=== PATIENT | male | born 1970 | race Caucasian/White ===

== ENCOUNTER 2016-05-03 21:43 | Inpatient (IN) | payer OTHER ==
[2016-05-03] MEDS ORDERED: Sodium Chloride 0.9% 10 ML Syringe FLUSH PRN (22:50)
[2016-05-03] MEDS ORDERED: Prochlorperazine 10 MG/2 ML SDV IVPUSH ONE (22:52)
[2016-05-03] MEDS ORDERED: Sodium Chloride 0.9% 1,000 ML IV SCH (23:00)
--- NOTE | 2016-05-03 23:01 | EDM.PDOC ---
ED HPI GI/ABDOMINAL - General Chief Complaint: Gastrointestinal Problem Stated Complaint: [facility] Time Seen by Provider: 05/03/16 22:44 Source: Reports: Patient History Limitations: Reports: No limitations - History of Present Illness INITIAL COMMENTS - FREE TEXT/NARRATIVE: This patient says he's been sick for the past couple of days. He's been vomiting a lot. He said he can't hold anything down at all. He had a little bit of diarrhea at first but now it's mostly gone. He denies any fever there's no sore throat no cough no abdominal pain. He said his blood sugars have been running high recently. He denies any history of DKA. Have type 1 diabetes - Related Data Allergies/ADRs: Allergies Allergy/AdvReac Type Severity Reaction Status Date / Time indomethacin Allergy Confusion Verified 05/03/16 21:50 metformin Allergy Other Verified 05/03/16 21:50 Home Meds: Home Meds Acetaminophen [Tylenol Extra Strength] 1,000 mg PO Q6HR 08/18/15 [History] Aspirin [Lo-Dose Aspirin EC] 81 mg PO DAILY 08/18/15 [History] Multivitamin [Men's Multi-Vitamin] 1 mg PO DAILY 08/18/15 [History] Insulin Aspart [NovoLOG] 1 unit SUBCUT WITHMEALSANDBED 10/05/15 [History] Insulin Detemir [Levemir] 30 unit SUBCUT BEDTIME 10/05/15 [History] Famotidine 40 mg PO DAILY #30 tablet 03/21/16 [Rx] Gabapentin [Neurontin] 300 mg PO TID 03/21/16 [History] Simvastatin [Zocor] 1 tab PO BEDTIME 05/03/16 [History] Past Medical History HEENT History: Reports: Impaired vision Cardiovascular History: Reports: High cholesterol, Hypertension Musculoskeletal History: Reports: RA Other Musculoskeletal History: . Neurological History: Reports: Neuropathy, peripheral Endocrine/Metabolic History: Reports: Diabetes, type I - Infectious Disease History Infectious Disease History: Reports: Chicken pox - Past Surgical History Cardiovascular Surgical History: Reports: None Musculoskeletal Surgical History: Reports: Shoulder surgery, Other (see below) Other Musculoskeletal Surgeries/Procedures:: toe amputaion x2 right foot Social & Family History - Family History Family Medical History: Noncontributory Cardiac: Reports: Cardiomyopathy Other Cardiac Family History: Father Endocrine/Metabolic: Reports: Diabetes, type II Other Endocrine/Metabolic Family History: Grandma - Tobacco Use Smoking Status *Q: Former Smoker Years of Tobacco use: 3 Used Tobacco, but Quit: Yes Month Tobacco Last Used: 36 Second Hand Smoke Exposure: No - Caffeine Use Caffeine Use: Reports: Coffee - Recreational Drug Use Recreational Drug Use: No - Living Situation & Occupation Living situation: Reports: , alone Occupation: employed ED ROS GENERAL - Review of Systems Review Of Systems: See Below Constitutional: Reports: malaise, weakness HEENT: Reports: No symptoms Respiratory: Reports: no symptoms Cardiovascular: Reports: No symptoms Endocrine: Reports: no symptoms GI/Abdominal: Reports: Nausea, Vomiting : Reports: no symptoms Musculoskeletal: Reports: no symptoms, muscle pain Neurological: Reports: no symptoms Psychiatric: Reports: No symptoms Hematologic/Lymphatic: Reports: no symptoms Immunologic: Reports: no symptoms ED EXAM, GI/ABD - Physical Exam Exam: See Below Exam Limited By: No limitations General Appearance: alert, WD/WN, mild distress Eyes: bilateral: normal appearance Ears: normal external exam Nose: normal inspection Throat/Mouth: Normal inspection (Most teeth are missing) Head: atraumatic Neck: normal inspection Respiratory/Chest: lungs clear Cardiovascular: normal peripheral pulses, regular rate, rhythm, no murmur GI/Abdominal: normal bowel sounds, soft, non tender Back Exam: normal inspection Extremities: normal inspection Neurological: alert, oriented, CN II-XII intact Psychiatric: normal affect Skin Exam: Warm, Dry Course - Vital Signs Last Recorded V/S: Last Vital Signs Temp 37.3 C 05/03/16 21:55 Pulse 108 H 05/04/16 00:35 Resp 14 05/04/16 00:35 BP 143/97 H 05/04/16 00:35 Pulse Ox 97 05/04/16 00:35 - Orders/Labs/Meds Orders: Active Orders 24 hr Category Date Time Status Chest 2V [CR] Urgent Exams 05/03/16 22:50 Taken Sodium Chloride 0.9% [Normal Saline] 1,000 ml Med 05/03/16 23:00 Active IV ASDIRECTED Sodium Chloride 0.9% [Normal Saline] 1,000 ml Med 05/04/16 01:00 Active IV ASDIRECTED Sodium Chloride 0.9% [Saline Flush] Med 05/03/16 22:50 Active 10 ml FLUSH ASDIRECTED PRN Saline Lock Insert [OM.PC] Urgent Oth 05/03/16 22:50 Ordered Medication Orders Sodium Chloride (Normal Saline) 1,000 mls @ 999 mls/hr IV ASDIRECTED GT Last Admin: 05/03/16 23:11 Dose: 999 mls/hr Sodium Chloride (Normal Saline) 1,000 mls @ 999 mls/hr IV ASDIRECTED GT Last Admin: 05/04/16 00:51 Dose: 999 mls/hr Sodium Chloride (Saline Flush) 10 ml FLUSH ASDIRECTED PRN PRN Reason: Keep Vein Open Last Admin: 05/03/16 23:10 Dose: 10 ml Labs: Laboratory Tests 05/03/16 05/03/16 05/03/16 Range/Units 22:51 23:07 23:09 WBC (4.5-11.0) K/uL RBC (4.30-5.90) M/uL Hgb (12.0-15.0) g/dL Hct (40.0-54.0) % MCV (80-98) fL MCH (27-31) pg MCHC (32-36) % Plt Count (150-400) K/uL Neut % (Auto) (36-66) % Lymph % (Auto) (24-44) % Brooke % (Auto) (2-6) % Eos % (Auto) (2-4) % Baso % (Auto) (0-1) % ABG Hemoglobin 16.3 (13.5-18.0) g/dL ABG Oxyhemoglobin 71.4 % ABG Carboxyhemoglobin 1.4 (0.0-1.6) % ABG Methemoglobin 0.7 % VBG pH 7.552 H (7.350-7.450) VBG pCO2 27.0 mm/Hg VBG pO2 35.6 mm/Hg VBG HCO3 23.7 mmol/L VBG Total CO2 19.7 mmol/L VBG O2 Saturation 72.9 VBG O2 Content 16.3 %vol VBG Base Excess 3.0 mm/L O2 Delivery Device Room air Sodium (140-148) mmol/L Potassium (3.6-5.2) mmol/L Chloride (100-108) mmol/L Carbon Dioxide (21-32) mmol/L Anion Gap (5.0-14.0) mmol/L BUN (7-18) mg/dL Creatinine (0.8-1.3) mg/dL Est Cr Clr Drug Dosing mL/min Estimated GFR (MDRD) (>60) Glucose (74-106) mg/dL Lactic Acid 2.5 H (0.4-2.0) mmol/L Calcium (8.5-10.1) mg/dL Total Bilirubin (0.2-1.0) mg/dL AST (15-37) U/L ALT (12-78) U/L Alkaline Phosphatase (46-116) U/L Total Protein (6.4-8.2) g/dL Albumin (3.4-5.0) g/dL Globulin (2.3-3.5) g/dL Albumin/Globulin Ratio (1.2-2.2) Urine Color Yellow Urine Appearance Cloudy Urine pH 6.0 (4.5-8.0) Ur Specific [place] 1.020 (1.008-1.030) Urine Protein 100 H (NEGATIVE) mg/dL Urine Glucose (UA) >1000 H (NEGATIVE) mg/dL Urine Ketones 50 H (NEGATIVE) mg/dL Urine Occult Blood Moderate (NEGATIVE) Urine Nitrite Negative (NEGAITVE) Urine Bilirubin Negative (NEGATIVE) Urine Urobilinogen Normal (NORMAL) mg/dL Ur Leukocyte Esterase Negative (NEGATIVE) Urine RBC 5-10 H (0-5) Urine WBC 0-5 (0-5) Ur Epithelial Cells Rare Amorphous Sediment Not seen Urine Bacteria Not seen Urine Mucus Few Ketones (NEGATIVE) 05/03/16 05/03/16 05/03/16 Range/Units 23:09 23:09 23:09 WBC 17.5 H (4.5-11.0) K/uL RBC 5.51 (4.30-5.90) M/uL Hgb 16.0 H (12.0-15.0) g/dL Hct 46.0 (40.0-54.0) % MCV 84 (80-98) fL MCH 29 (27-31) pg MCHC 35 (32-36) % Plt Count 427 H (150-400) K/uL Neut % (Auto) 84 H (36-66) % Lymph % (Auto) 8 L (24-44) % Brooke % (Auto) 8 H (2-6) % Eos % (Auto) 0 L (2-4) % Baso % (Auto) 0 (0-1) % ABG Hemoglobin (13.5-18.0) g/dL ABG Oxyhemoglobin % ABG Carboxyhemoglobin (0.0-1.6) % ABG Methemoglobin % VBG pH (7.350-7.450) VBG pCO2 mm/Hg VBG pO2 mm/Hg VBG HCO3 mmol/L VBG Total CO2 mmol/L VBG O2 Saturation VBG O2 Content %vol VBG Base Excess mm/L O2 Delivery Device Sodium 139 L (140-148) mmol/L Potassium 3.6 (3.6-5.2) mmol/L Chloride 99 L (100-108) mmol/L Carbon Dioxide 24 (21-32) mmol/L Anion Gap 19.6 H (5.0-14.0) mmol/L BUN 41 H D (7-18) mg/dL Creatinine 1.3 (0.8-1.3) mg/dL Est Cr Clr Drug Dosing 71.39 mL/min Estimated GFR (MDRD) 59 L (>60) Glucose 297 H (74-106) mg/dL Lactic Acid (0.4-2.0) mmol/L Calcium 9.5 (8.5-10.1) mg/dL Total Bilirubin 0.7 (0.2-1.0) mg/dL AST 21 (15-37) U/L ALT 22 (12-78) U/L Alkaline Phosphatase 57 (46-116) U/L Total Protein 9.1 H (6.4-8.2) g/dL Albumin 4.4 (3.4-5.0) g/dL Globulin 4.7 H (2.3-3.5) g/dL Albumin/Globulin Ratio 0.9 L (1.2-2.2) Urine Color Urine Appearance Urine pH (4.5-8.0) Ur Specific [place] (1.008-1.030) Urine Protein (NEGATIVE) mg/dL Urine Glucose (UA) (NEGATIVE) mg/dL Urine Ketones (NEGATIVE) mg/dL Urine Occult Blood (NEGATIVE) Urine Nitrite (NEGAITVE) Urine Bilirubin (NEGATIVE) Urine Urobilinogen (NORMAL) mg/dL Ur Leukocyte Esterase (NEGATIVE) Urine RBC (0-5) Urine WBC (0-5) Ur Epithelial Cells Amorphous Sediment Urine Bacteria Urine Mucus Ketones Small H (NEGATIVE) Meds: Medications Generic Name Dose Route Start Last Admin Trade Name Freq PRN Reason Stop Dose Admin Sodium Chloride 1,000 mls @ 999 mls/hr 05/03/16 23:00 05/03/16 23:11 Normal Saline IV 999 mls/hr ASDIRECTED GT Administration Sodium Chloride 1,000 mls @ 999 mls/hr 05/04/16 01:00 05/04/16 00:51 Normal Saline IV 999 mls/hr ASDIRECTED GT Administration Sodium Chloride 10 ml 05/03/16 22:50 05/03/16 23:10 Saline Flush FLUSH 10 ml ASDIRECTED PRN Administration Keep Vein Open Discontinued Medications Generic Name Dose Route Start Last Admin Trade Name Freq PRN Reason Stop Dose Admin Prochlorperazine Edisylate 5 mg 05/03/16 22:52 05/03/16 23:09 Compazine IVPUSH 05/03/16 22:53 5 mg ONETIME ONE Administration - Re-Assessments/Exams Free Text/Narrative Re-Assessment/Exam: 05/04/16 01:05 This patient received Compazine 5 mg IV and 1 L of IV normal saline. He felt just a little bit better afterwards however labs indicate that he is dehydrated and has prerenal azotemia. His white count is elevated with a left shift and lactic acid slightly elevated at 2.5. Patient says he was noticed a little bit better he still feels awful and feels like he needs to be hospitalized. He denies any kind of abdominal pain. At the present time the cause of the vomiting is unclear. He will need further hydration and workup. I spoke with Melissa Begum from the hospitalist service and the patient will be admitted Departure - Departure Time of Disposition: 01:13 Disposition: Admitted As Inpatient 65 Condition: fair Clinical Impression: Gastroenteritis Forms: ED Department Discharge - My Orders Last 24 Hours: My Active Orders 05/03/16 22:50 Chest 2V [CR] Urgent Sodium Chloride 0.9% [Saline Flush] 10 ml FLUSH ASDIRECTED PRN Saline Lock Insert [OM.PC] Urgent 05/03/16 23:00 Sodium Chloride 0.9% [Normal Saline] 1,000 ml IV ASDIRECTED 05/04/16 01:00 Sodium Chloride 0.9% [Normal Saline] 1,000 ml IV ASDIRECTED - Assessment/Plan Last 24 Hours: My Active Orders 05/03/16 22:50 Chest 2V [CR] Urgent Sodium Chloride 0.9% [Saline Flush] 10 ml FLUSH ASDIRECTED PRN Saline Lock Insert [OM.PC] Urgent 05/03/16 23:00 Sodium Chloride 0.9% [Normal Saline] 1,000 ml IV ASDIRECTED 05/04/16 01:00 Sodium Chloride 0.9% [Normal Saline] 1,000 ml IV ASDIRECTED
[2016-05-04] MEDS ORDERED: Sodium Chloride 0.9% 1,000 ML IV SCH (01:00)
[2016-05-04] MEDS ORDERED: LORazepam 2 MG/ML MDV IVPUSH ONE (01:11)
[2016-05-04] MEDS ORDERED: oxyCODONE 5 MG Tab PO PRN (01:57)
[2016-05-04] MEDS ORDERED: Acetaminophen 325 MG Tab PO PRN (01:57)
[2016-05-04] MEDS ORDERED: Docusate Sodium 100 MG Cap PO PRN (01:57)
[2016-05-04] MEDS ORDERED: Promethazine 25 MG Tab PO PRN (01:57)
[2016-05-04] MEDS ORDERED: Zolpidem 5 MG Tab PO PRN (01:57)
[2016-05-04] MEDS ORDERED: LORazepam 2 MG/ML MDV IV PRN (01:57)
[2016-05-04] MEDS ORDERED: Albuterol 0.083% 2.5 MG/3 ML Neb Soln NEB PRN (01:57)
[2016-05-04] MEDS: Sodium Chloride 0.9% 1,000 ML IV SCH ×3 (02:00→17:53)
[2016-05-04] MEDS: Insulin Aspart 100 Units/ML 3 ML Pen SUBCUT SCH ×8 (07:57→22:06)
[2016-05-04] MEDS ORDERED: Insulin Aspart 100 Units/ML 3 ML Pen SUBCUT SCH (08:00)
--- NOTE | 2016-05-04 08:37 | PCM.HP ---
H&P History of Present Illness - General Date of Service: 05/03/16 Admit Problem/Dx: Admission Diagnosis/Problem Admission Diagnosis/Problem Gastroenteritis Source of Information: Patient History Limitations: Reports: No limitations - History of Present Illness Initial Comments - Free Text/Narative: This patient says he's been sick for the past couple of days. He's been vomiting a lot. He said he can't hold anything down at all. He had a little bit of diarrhea at first but now it's mostly gone. He denies any fever there's no sore throat no cough no abdominal pain. He said his blood sugars have been running high recently. He denies any history of DKA. Have type 1 diabetes. Mr. Dumont reports when he got sick 2 days ago, stopped all his medications including his insulin. Onset of Symptoms: Reports: sudden Duration of Symptoms: Reports: Day(s): (three) Location: Reports: generalized Severity: moderate Improves with: Reports: None Worsens with: Reports: None Context: Reports: sick contact (flu like illness for the past 3 days) Associated Symptoms: Reports: fever/chills, loss of appetite (unable to eat food or water for 2 days.), malaise, nausea/vomiting, weakness Abdominal Pain Score (Numeric/FACES): 5 - Related Data Allergies/Adverse Reactions: Allergies Allergy/AdvReac Type Severity Reaction Status Date / Time indomethacin Allergy Confusion Verified 05/03/16 21:50 metformin Allergy Other Verified 05/03/16 21:50 Home Medications: Home Meds Acetaminophen [Tylenol Extra Strength] 1,000 mg PO Q6HR 08/18/15 [History] Aspirin [Lo-Dose Aspirin EC] 81 mg PO DAILY 08/18/15 [History] Multivitamin [Men's Multi-Vitamin] 1 mg PO DAILY 08/18/15 [History] Insulin Aspart [NovoLOG] 1 unit SUBCUT WITHMEALSANDBED 10/05/15 [History] Insulin Detemir [Levemir] 30 unit SUBCUT BEDTIME 10/05/15 [History] Famotidine 40 mg PO DAILY #30 tablet 03/21/16 [Rx] Gabapentin [Neurontin] 300 mg PO TID 03/21/16 [History] Simvastatin [Zocor] 1 tab PO BEDTIME 05/03/16 [History] Past Medical History HEENT History: Reports: Impaired vision Cardiovascular History: Reports: High cholesterol, Hypertension Musculoskeletal History: Reports: RA Other Musculoskeletal History: . Neurological History: Reports: Neuropathy, peripheral Endocrine/Metabolic History: Reports: Diabetes, type I - Infectious Disease History Infectious Disease History: Reports: Chicken pox - Past Surgical History Cardiovascular Surgical History: Reports: None Musculoskeletal Surgical History: Reports: Shoulder surgery, Other (see below) Other Musculoskeletal Surgeries/Procedures:: toe amputaion x2 right foot Social & Family History - Family History Family Medical History: Noncontributory Cardiac: Reports: Cardiomyopathy Other Cardiac Family History: Father Endocrine/Metabolic: Reports: Diabetes, type II Other Endocrine/Metabolic Family History: Grandma - Tobacco Use Smoking Status *Q: Former Smoker Years of Tobacco use: 3 Packs/Tins Daily: 2 Used Tobacco, but Quit: Yes Month Tobacco Last Used: 36 Second Hand Smoke Exposure: No - Caffeine Use Caffeine Use: Reports: Coffee Other Caffeine Use: 2 cups daily - Recreational Drug Use Recreational Drug Use: No - Living Situation & Occupation Living situation: Reports: , alone Occupation: employed H&P Review of Systems - Review of Systems: Review Of Systems: See Below General: Reports: fever, chills, malaise, weakness, decreased appetite (unalbe to eat or drink for 2 days.) HEENT: Reports: no symptoms Pulmonary: Reports: no symptoms Cardiovascular: Reports: no symptoms Gastrointestinal: Reports: Decreased appetite, Nausea, Vomiting Genitourinary: Reports: no symptoms Musculoskeletal: Reports: muscle pain (pain and weakness.) Skin: Reports: no symptoms Psychiatric: Reports: no symptoms Neurological: Reports: no symptoms Hematologic/Lymphatic: Reports: no symptoms Immunologic: Reports: no symptoms Exam - Exam Exam: See Below - Vital Signs Vital Signs: Last Vital Signs Temp 37.2 C 05/04/16 02:00 Pulse 103 H 05/04/16 02:00 Resp 18 05/04/16 06:00 BP 115/75 05/04/16 02:00 Pulse Ox 96 05/04/16 02:23 Weight: 79.016 kg - Exam General: alert, oriented, cooperative, mild distress, other (laying in ER stretcher,curled up with blankets.) HEENT: PERRLA, Conjunctiva clear, EACs clear, EOMI, Hearing intact, Nares patent , Pupils equal, Pupils reactive, TMs clear, Other (mouth dry) Neck: supple, trachea midline Lungs: Clear to auscultation, Normal respiratory effort Cardiovascular: regular rate, regular rhythm, normal S1, normal S2 Abdomen: normal bowel sounds, soft, other (abdomen non-tender to palpation. mild tenderness over epigastric area due to vomiting.) (Male) Exam: Deferred Rectal (Males) Exam: Deferred Back Exam: normal inspection, full range of motion Extremities: normal inspection Skin: warm, dry, intact Neurological: cranial nerves intact, reflexes equal bilateral Neuro Extensive - Mental Status: alert, oriented x3, normal mood/affect Neuro Extensive - Motor, Sensory, Reflexes: normal reflexes Psychiatric: alert, depressed, other (withdrawn due to acute illness.) - Patient Data Lab Results last 24 hrs: Laboratory Results - last 24 hr 05/04/16 05/04/16 05/04/16 Range/Units 05:18 05:18 05:30 WBC 17.2 H (4.5-11.0) K/uL RBC 4.90 (4.30-5.90) M/uL Hgb 14.3 (12.0-15.0) g/dL Hct 42.0 (40.0-54.0) % MCV 86 (80-98) fL MCH 29 (27-31) pg MCHC 34 (32-36) % Plt Count 411 H (150-400) K/uL Sodium 141 (140-148) mmol/L Potassium 3.9 (3.6-5.2) mmol/L Chloride 104 (100-108) mmol/L Carbon Dioxide 28 (21-32) mmol/L Anion Gap 9.1 (5.0-14.0) mmol/L BUN 36 H (7-18) mg/dL Creatinine 1.2 (0.8-1.3) mg/dL Est Cr Clr Drug Dosing 77.80 mL/min Estimated GFR (MDRD) > 60 (>60) Glucose 248 H (74-106) mg/dL Lactic Acid 1.7 (0.4-2.0) mmol/L Calcium 8.4 L (8.5-10.1) mg/dL Result Diagrams: 05/04/16 05:18 05/04/16 05:18 *Q Meaningful Use (ADM) - VTE *Q VTE Criteria *Q: - Stroke *Q Stroke Criteria *Q: - AMI *Q AMI Criteria *Q: - Problem List (1) Gastroenteritis SNOMED Code(s): 15151262 ICD Code: K52.9 - NONINFECTIVE GASTROENTERITIS AND COLITIS, UNSPECIFIED Status: Acute Priority: High Current Visit: Yes (2) Type 2 diabetes mellitus SNOMED Code(s): 27069840 ICD Code: E11.9 - TYPE 2 DIABETES MELLITUS WITHOUT COMPLICATIONS Status: Chronic Priority: High Current Visit: No Qualifiers: Diabetes mellitus complication status: with hyperglycemia Problem List Initiated/Reviewed/Updated: Yes Orders Last 24hrs: Active Orders 24 hr Category Date Time Status Patient Status [ADT] Routine ADT 05/04/16 01:57 Active Diabetes Education [RC] Click to Edit Care 05/04/16 01:57 Active Intake and Output [RC] QSHIFT Care 05/04/16 01:57 Active May Shower [RC] ASDIRECTED Care 05/04/16 01:57 Active Oxygen Therapy [RC] PRN Care 05/04/16 01:57 Active RT Aerosol Therapy [RC] ASDIRECTED Care 05/04/16 01:57 Active Up ad Christie [RC] ASDIRECTED Care 05/04/16 01:57 Active VTE/DVT Education [RC] Per Unit Routine Care 05/04/16 01:57 Active Vital Signs [RC] Q4H Care 05/04/16 01:57 Active Nothing per Oral After Midnight Diet [DIET] Diet 05/04/16 Breakfast Active CULTURE BLOOD [BC] Urgent Lab 05/04/16 08:30 Ordered CULTURE BLOOD [BC] Urgent Lab 05/04/16 08:30 Ordered GLUCOSE POC LAB TO COLLECT [POC] QIDACANDBED Lab 05/04/16 11:30 Ordered GLUCOSE POC LAB TO COLLECT [POC] QIDACANDBED Lab 05/04/16 16:30 Ordered GLUCOSE POC LAB TO COLLECT [POC] QIDACANDBED Lab 05/04/16 21:00 Ordered Acetaminophen [Tylenol] Med 05/04/16 01:57 Active 650 mg PO Q4H PRN Albuterol [Proventil Neb Soln] Med 05/04/16 01:57 Active 2.5 mg NEB Q4H PRN Docusate Sodium [Colace] Med 05/04/16 01:57 Active 100 mg PO BID PRN Gabapentin [Neurontin] Med 05/04/16 09:00 Active 300 mg PO TID Insulin Aspart [NovoLOG] Med 05/04/16 08:00 Active 0 unit SUBCUT WITHMEALSANDBED Insulin Aspart [NovoLOG] Med 05/04/16 01:57 Active See Protocol SUBCUT ASDIRECTED Insulin Detemir [Levemir] Med 05/04/16 21:00 Active 30 unit SUBCUT BEDTIME LORazepam [Ativan] Med 05/04/16 01:57 Active 1 mg IV Q6H PRN Levofloxacin/Dextrose 5%-Water [Levaquin in D5W 500 MG/ Med 05/04/16 08:30 Ordered 100 ML] 500 mg Premix Bag 1 bag IV Q24H Multivitamins w-Iron/Ca/FA/Min [Thera M Plus] Med 05/04/16 09:00 Active 1 tab PO DAILY Promethazine [Phenergan] Med 05/04/16 01:57 Active 25 mg PO Q6H PRN Simvastatin [Zocor] Med 05/04/16 21:00 Active 20 mg PO BEDTIME Sodium Chloride 0.9% [Normal Saline] 1,000 ml Med 05/04/16 01:57 Active IV ASDIRECTED Zolpidem [Ambien] Med 05/04/16 01:57 Active 5 mg PO BEDTIME PRN oxyCODONE Med 05/04/16 01:57 Active 10 mg PO Q4H PRN Blood Culture x2 Reflex Set [OM.PC] Urgent Oth 05/04/16 08:30 Ordered Resuscitation Status Routine Resus Stat 05/04/16 01:17 Ordered Medication Orders Acetaminophen (Tylenol) 650 mg PO Q4H PRN PRN Reason: Pain (Mild 1-3)/fever Albuterol (Proventil Neb Soln) 2.5 mg NEB Q4H PRN PRN Reason: Shortness Of Breath/wheezing Docusate Sodium (Colace) 100 mg PO BID PRN PRN Reason: Constipation Gabapentin (Neurontin) 300 mg PO TID GT Sodium Chloride (Normal Saline) 1,000 mls @ 125 mls/hr IV ASDIRECTED GT Last Admin: 05/04/16 02:00 Dose: 125 mls/hr Levofloxacin/Dextrose 500 mg/ (Premix) 100 mls @ 100 mls/hr IV Q24H GT Insulin Aspart (Novolog) 0 unit SUBCUT ASDIRECTED GT PRN Reason: Protocol Last Admin: 05/04/16 07:57 Dose: 6 units Insulin Aspart (Novolog) 0 unit SUBCUT WITHMEALSANDBED GT Last Admin: 05/04/16 07:58 Dose: Insulin Detemir (Levemir) 30 unit SUBCUT BEDTIME GT Lorazepam (Ativan) 1 mg IV Q6H PRN PRN Reason: Nausea/Vomiting Last Admin: 05/04/16 07:48 Dose: 1 mg Multivitamins/Minerals (Thera M Plus) 1 tab PO DAILY GT Oxycodone HCl (Oxycodone) 10 mg PO Q4H PRN PRN Reason: Pain (moderate 4-6) Promethazine HCl (Phenergan) 25 mg PO Q6H PRN PRN Reason: Nausea able to take PO Last Admin: 05/04/16 04:58 Dose: 25 mg Simvastatin (Zocor) 20 mg PO BEDTIME GT Sodium Chloride (Saline Flush) 10 ml FLUSH ASDIRECTED PRN PRN Reason: Keep Vein Open Last Admin: 05/03/16 23:10 Dose: 10 ml Zolpidem Tartrate (Ambien) 5 mg PO BEDTIME PRN PRN Reason: Sleep Assessment/Plan Comment:: ASSESSMENT / PLAN -This is a 46 year old male present to ER with complaints flu like illness for the past two days, unable to eat or drink, stopped all his medications including his insulin, He became increasing weaker, not even able to tolerate water today, he decided to come to the hospital/ER for further care and treatment. Plan -Admit to [address] [place] [address] for further monitoring Gastroenteritis -IV fluids, Normal Saline 125ml/hr -anti-emetic ordered -elevated WBC 17.5, will order blood cultures x, start Levaquin 500mg IV daily until culture reports completed Diabetes Type 1 -restart Insulin; levimir 30 units at hs -restart sliding scale insulin; medium coveage, see protocol -IV fluids for rehydration NS at 125 mL per hour -And a.m. labs: CBC, BMP, add lactic acid Maintenance issues -Orders home meds: -Nutrition: diabetic diet as tolerated -Santo catheter not indicated at this time -DVT: SCD -GI prophalaxis; Protonix CODE STATUS: Full Admission status: Admit to [address] [place] [address] Admission justification. This patient will be admitted for inpatient services and is medically appropriate meeting medical necessity for inpatient admission as outlined in my documentation. I reasonably expect the patient will require inpatient services that span. Time over 2 midnights. I reasonably expect this patient to be discharged or transferred within 96 hours after admission to the [facility]. Disposition;home with family Primary care provider:Ruthann Galindo.
--- NOTE | 2016-05-04 08:46 | CR ---
Chest 2V HISTORY: Pain COMPARISON: 10/06/2015 FINDINGS: Cardiac size and pulmonary vessels are normal. No focal infiltrates or effusions. No pneum othorax. Impression: No acute pulmonary disease.
[2016-05-04] MEDS ORDERED: Levofloxacin/Dextrose 5%-Water 500 MG in Premix Bag 1 BAG IV SCH (09:00)
[2016-05-04] MEDS: Gabapentin 300 MG Cap PO SCH ×4 (09:30→22:06)
[2016-05-04] MEDS: Multivitamins with Iron/Calcium/Folic Acid/Minerals Tab PO SCH (09:30)
[2016-05-04] MEDS: Pantoprazole 40 MG Vial IVPUSH SCH (09:30)
[2016-05-04] MEDS ORDERED: Aluminum Hydroxide/Magnesium Hydroxide/Simethicone Susp 30 ML Cup PO PRN (11:44)
--- NOTE | 2016-05-04 11:47 | PCM.PN ---
- General Info Date of Service: 05/04/16 Functional Status: Reports: pain controlled, urinating - Review of Systems General: Reports: weakness Gastrointestinal: Reports: Abdominal pain, Nausea Systems Review Comment:: no acute events since admission. Still has some nausea and intermittent vomiting. No diarrhea. Mild generalized abdominal pain. Blood sugars are finally coming down. No fevers. No complaints of shortness of breath. He is interested in trying to drink some fluids. - Patient Data Vitals - most recent: Last Vital Signs Temp 37.2 C 05/04/16 02:00 Pulse 103 H 05/04/16 02:00 Resp 18 05/04/16 06:00 BP 115/75 05/04/16 02:00 Pulse Ox 96 05/04/16 02:23 Weight - most recent: 79.016 kg I&O - last 24 hours: Intake & Output 05/03/16 05/04/16 05/04/16 22:59 06:59 14:59 Output Total 0 325 Balance 0 -325 Lab Results last 24 hrs: Laboratory Results - last 24 hr 05/04/16 05/04/16 05/04/16 Range/Units 05:18 05:18 05:30 WBC 17.2 H (4.5-11.0) K/uL RBC 4.90 (4.30-5.90) M/uL Hgb 14.3 (12.0-15.0) g/dL Hct 42.0 (40.0-54.0) % MCV 86 (80-98) fL MCH 29 (27-31) pg MCHC 34 (32-36) % Plt Count 411 H (150-400) K/uL Sodium 141 (140-148) mmol/L Potassium 3.9 (3.6-5.2) mmol/L Chloride 104 (100-108) mmol/L Carbon Dioxide 28 (21-32) mmol/L Anion Gap 9.1 (5.0-14.0) mmol/L BUN 36 H (7-18) mg/dL Creatinine 1.2 (0.8-1.3) mg/dL Est Cr Clr Drug Dosing 77.80 mL/min Estimated GFR (MDRD) > 60 (>60) Glucose 248 H (74-106) mg/dL Lactic Acid 1.7 (0.4-2.0) mmol/L Calcium 8.4 L (8.5-10.1) mg/dL Med Orders - Current: Current Medications Acetaminophen (Tylenol) 650 mg PO Q4H PRN PRN Reason: Pain (Mild 1-3)/fever Albuterol (Proventil Neb Soln) 2.5 mg NEB Q4H PRN PRN Reason: Shortness Of Breath/wheezing Docusate Sodium (Colace) 100 mg PO BID PRN PRN Reason: Constipation Gabapentin (Neurontin) 300 mg PO TID [facility] Last Admin: 05/04/16 09:30 Dose: 300 mg Sodium Chloride (Normal Saline) 1,000 mls @ 125 mls/hr IV ASDIRECTED [facility] Last Admin: 05/04/16 09:38 Dose: 125 mls/hr Insulin Aspart (Novolog) 0 unit SUBCUT ASDIRECTED [facility] PRN Reason: Protocol Last Admin: 05/04/16 07:57 Dose: 6 units Insulin Aspart (Novolog) 0 unit SUBCUT WITHMEALSANDBED [facility] Last Admin: 05/04/16 07:58 Dose: Not Given Insulin Detemir (Levemir) 30 unit SUBCUT BEDTIME [facility] Multivitamins/Minerals (Thera M Plus) 1 tab PO DAILY [facility] Last Admin: 05/04/16 09:30 Dose: Not Given Oxycodone HCl (Oxycodone) 10 mg PO Q4H PRN PRN Reason: Pain (moderate 4-6) Pantoprazole Sodium (Protonix Iv) 40 mg IVPUSH DAILY@0730 [facility] Last Admin: 05/04/16 09:30 Dose: 40 mg Promethazine HCl (Phenergan) 25 mg PO Q6H PRN PRN Reason: Nausea able to take PO Last Admin: 05/04/16 04:58 Dose: 25 mg Simvastatin (Zocor) 20 mg PO BEDTIME [facility] Sodium Chloride (Saline Flush) 10 ml FLUSH ASDIRECTED PRN PRN Reason: Keep Vein Open Last Admin: 05/03/16 23:10 Dose: 10 ml Zolpidem Tartrate (Ambien) 5 mg PO BEDTIME PRN PRN Reason: Sleep Discontinued Medications Sodium Chloride (Normal Saline) 1,000 mls @ 999 mls/hr IV ASDIRECTED [facility] Last Admin: 05/03/16 23:11 Dose: 999 mls/hr Sodium Chloride (Normal Saline) 1,000 mls @ 999 mls/hr IV ASDIRECTED [facility] Last Admin: 05/04/16 00:51 Dose: 999 mls/hr Levofloxacin/Dextrose 500 mg/ (Premix) 100 mls @ 100 mls/hr IV Q24H [facility] Last Admin: 05/04/16 09:35 Dose: Not Given Lorazepam (Ativan) 1 mg IVPUSH ONETIME ONE Stop: 05/04/16 01:12 Last Admin: 05/04/16 01:21 Dose: 1 mg Lorazepam (Ativan) 1 mg IV Q6H PRN PRN Reason: Nausea/Vomiting Last Admin: 05/04/16 07:48 Dose: 1 mg Prochlorperazine Edisylate (Compazine) 5 mg IVPUSH ONETIME ONE Stop: 05/03/16 22:53 Last Admin: 05/03/16 23:09 Dose: 5 mg - Exam General: alert, oriented, cooperative, no acute distress Neck: supple Abdomen: no distension, tenderness (mild diffuse) Extremities: no edema, other (1.5 cm ulcer on the bottom of his right foot. no erythema or induration) Skin: warm, dry Psy/Mental Status: alert, normal affect - Problem List Review Problem List Initiated/Reviewed/Updated: Yes - My Orders Last 24 Hours: My Active Orders 05/04/16 11:44 Alum Hydrox/Mag Hydrox/Simeth [Mag-Al Plus] 30 ml PO Q4H PRN 05/04/16 11:46 LORazepam [Ativan] 1 mg IV Q4H PRN 05/04/16 Lunch Clear Liquid Diet [DIET] 05/05/16 05:00 BASIC METABOLIC PANEL,BMP [CHEM] Timed CBC W/O DIFF,HEMOGRAM [HEME] Timed (1) - Plan Plan:: ASSESSMENT / PLAN Gastroenteritis - likely viral. Does not need antibiotics at this time. Vomiting seems to be decreasing some. Still dehydrated based on examination. -IV fluids, Normal Saline 125ml/hr -anti-emetic ordered -pain control -Clear liquids Diabetes Type 1 - sugars suboptimally controlled at the time of presentation with contribution from both infection and lack of medications for the past 2 days. -continue levimir 30 units at hs -continue sliding scale insulin; medium coveage, see protocol -IV fluids for rehydration NS at 125 mL per hour Diabetic foot ulcer, right foot - chronic, followed in the wound clinic. No evidence for acute infection. -Followup with Dr. Macario Maintenance issues -Nutrition: clear liquids -Santo catheter not indicated at this time -DVT: SCD -GI prophalaxis; Protonix Disposition;home with family García Hilton M.D.
[2016-05-04] MEDS: LORazepam 2 MG/ML MDV IV PRN ×2 (14:23→19:42)
[2016-05-04] MEDS ORDERED: Insulin Detemir 100 Units/ML 3 ML Pen SUBCUT SCH (21:00)
[2016-05-04] MEDS: Simvastatin 20 MG Tab PO SCH (22:06)
[2016-05-05] MEDS: LORazepam 2 MG/ML MDV IV PRN ×3 (00:56→21:41)
[2016-05-05] MEDS: Sodium Chloride 0.9% 1,000 ML IV SCH ×2 (00:58→10:46)
[2016-05-05] MEDS: Pantoprazole 40 MG Vial IVPUSH SCH (08:50)
[2016-05-05] MEDS: Multivitamins with Iron/Calcium/Folic Acid/Minerals Tab PO SCH (08:50)
[2016-05-05] MEDS: Gabapentin 300 MG Cap PO SCH ×3 (08:50→21:42)
[2016-05-05] MEDS: Insulin Aspart 100 Units/ML 3 ML Pen SUBCUT SCH ×4 (08:57→21:46)
[2016-05-05] MEDS ORDERED: Sodium Chloride 0.9% 1,000 ML IV SCH (11:16)
--- NOTE | 2016-05-05 11:18 | PCM.PN ---
- General Info Date of Service: 05/05/16 Functional Status: Reports: pain controlled, tolerating diet - Review of Systems General: Denies: fever Gastrointestinal: Reports: Nausea Systems Review Comment:: no acute events overnight. Still has some nausea but less vomiting overnight and no vomiting today.abdominal pain seems to have resolved. Tolerating small quantities of clear liquids. Low-grade temperature elevations. White blood cell count coming down. No diarrhea. - Patient Data Vitals - most recent: Last Vital Signs Temp 37.1 C 05/05/16 10:34 Pulse 93 05/05/16 10:34 Resp 18 05/05/16 10:34 BP 161/98 H 05/05/16 10:34 Pulse Ox 100 05/05/16 10:34 Weight - most recent: 79.016 kg I&O - last 24 hours: Intake & Output 05/04/16 05/05/16 05/05/16 22:59 06:59 14:59 Intake Total 2459 1280 Output Total 400 800 Balance 2059 480 Lab Results last 24 hrs: Laboratory Results - last 24 hr 05/05/16 05/05/16 Range/Units 05:00 05:00 WBC 13.1 H (4.5-11.0) K/uL RBC 4.67 (4.30-5.90) M/uL Hgb 13.7 (12.0-15.0) g/dL Hct 40.4 (40.0-54.0) % MCV 87 (80-98) fL MCH 29 (27-31) pg MCHC 34 (32-36) % Plt Count 338 (150-400) K/uL Sodium 140 (140-148) mmol/L Potassium 3.3 L (3.6-5.2) mmol/L Chloride 105 (100-108) mmol/L Carbon Dioxide 29 (21-32) mmol/L Anion Gap 9.3 (5.0-14.0) mmol/L BUN 19 H (7-18) mg/dL Creatinine 0.9 (0.8-1.3) mg/dL Est Cr Clr Drug Dosing 103.73 mL/min Estimated GFR (MDRD) > 60 (>60) Glucose 77 (74-106) mg/dL Calcium 8.0 L (8.5-10.1) mg/dL [place] Results last 24 hrs: Microbiology 05/04/16 08:33 Aerobic Blood Culture - Preliminary Blood - Arm, Right NO GROWTH AFTER 1 DAY Anaerobic Blood Culture - Preliminary NO GROWTH AFTER 1 DAY 05/04/16 08:38 Aerobic Blood Culture - Preliminary Blood - Arm, Left NO GROWTH AFTER 1 DAY Anaerobic Blood Culture - Preliminary NO GROWTH AFTER 1 DAY Med Orders - Current: Current Medications Acetaminophen (Tylenol) 650 mg PO Q4H PRN PRN Reason: Pain (Mild 1-3)/fever Last Admin: 05/05/16 09:10 Dose: 650 mg Al Hydroxide/Mg Hydroxide (Mag-Al Plus) 30 ml PO Q4H PRN PRN Reason: upset stomach Last Admin: 05/04/16 12:01 Dose: 30 ml Albuterol (Proventil Neb Soln) 2.5 mg NEB Q4H PRN PRN Reason: Shortness Of Breath/wheezing Docusate Sodium (Colace) 100 mg PO BID PRN PRN Reason: Constipation Last Admin: 05/04/16 14:24 Dose: 100 mg Gabapentin (Neurontin) 300 mg PO TID [facility] Last Admin: 05/05/16 08:50 Dose: 300 mg Insulin Aspart (Novolog) 0 unit SUBCUT ASDIRECTED [facility] PRN Reason: Protocol Last Admin: 05/04/16 22:03 Dose: 2 units Insulin Aspart (Novolog) 0 unit SUBCUT WITHMEALSANDBED [facility] Last Admin: 05/05/16 08:57 Dose: Not Given Lorazepam (Ativan) 1 mg IV Q4H PRN PRN Reason: Nausea/Vomiting Last Admin: 05/05/16 10:51 Dose: 1 mg Multivitamins/Minerals (Thera M Plus) 1 tab PO DAILY [facility] Last Admin: 05/05/16 08:50 Dose: 1 tab Oxycodone HCl (Oxycodone) 10 mg PO Q4H PRN PRN Reason: Pain (moderate 4-6) Promethazine HCl (Phenergan) 25 mg PO Q6H PRN PRN Reason: Nausea able to take PO Last Admin: 05/04/16 04:58 Dose: 25 mg Simvastatin (Zocor) 20 mg PO BEDTIME [facility] Last Admin: 05/04/16 22:06 Dose: 20 mg Sodium Chloride (Saline Flush) 10 ml FLUSH ASDIRECTED PRN PRN Reason: Keep Vein Open Last Admin: 05/03/16 23:10 Dose: 10 ml Zolpidem Tartrate (Ambien) 5 mg PO BEDTIME PRN PRN Reason: Sleep Discontinued Medications Sodium Chloride (Normal Saline) 1,000 mls @ 999 mls/hr IV ASDIRECTED [facility] Last Admin: 05/03/16 23:11 Dose: 999 mls/hr Sodium Chloride (Normal Saline) 1,000 mls @ 999 mls/hr IV ASDIRECTED [facility] Last Admin: 05/04/16 00:51 Dose: 999 mls/hr Sodium Chloride (Normal Saline) 1,000 mls @ 125 mls/hr IV ASDIRECTED [facility] Last Admin: 05/05/16 10:46 Dose: 125 mls/hr Levofloxacin/Dextrose 500 mg/ (Premix) 100 mls @ 100 mls/hr IV Q24H [facility] Last Admin: 05/04/16 09:35 Dose: Not Given Insulin Detemir (Levemir) 30 unit SUBCUT BEDTIME [facility] Last Admin: 05/04/16 22:02 Dose: 30 units Lorazepam (Ativan) 1 mg IVPUSH ONETIME ONE Stop: 05/04/16 01:12 Last Admin: 05/04/16 01:21 Dose: 1 mg Lorazepam (Ativan) 1 mg IV Q6H PRN PRN Reason: Nausea/Vomiting Last Admin: 05/04/16 07:48 Dose: 1 mg Pantoprazole Sodium (Protonix Iv) 40 mg IVPUSH DAILY@0730 [facility] Last Admin: 05/05/16 08:50 Dose: 40 mg Prochlorperazine Edisylate (Compazine) 5 mg IVPUSH ONETIME ONE Stop: 05/03/16 22:53 Last Admin: 05/03/16 23:09 Dose: 5 mg - Exam General: alert, oriented, cooperative, no acute distress Neck: supple Lungs: Normal respiratory effort Abdomen: soft, no distension Extremities: no edema Skin: warm, dry Psy/Mental Status: alert, normal affect - Problem List Review Problem List Initiated/Reviewed/Updated: Yes - My Orders Last 24 Hours: My Active Orders 05/04/16 11:44 Alum Hydrox/Mag Hydrox/Simeth [Mag-Al Plus] 30 ml PO Q4H PRN 05/04/16 11:46 LORazepam [Ativan] 1 mg IV Q4H PRN 05/04/16 Lunch Clear Liquid Diet [DIET] 05/05/16 11:16 Sodium Chloride 0.9% [Normal Saline] 1,000 ml IV ASDIRECTED 05/05/16 11:17 Potassium Chloride [Klor-Con M20] 40 meq PO ONETIME ONE 05/05/16 11:30 GLUCOSE POC LAB TO COLLECT [POC] QIDACANDBED 05/05/16 16:30 GLUCOSE POC LAB TO COLLECT [POC] QIDACANDBED 05/05/16 21:00 GLUCOSE POC LAB TO COLLECT [POC] QIDACANDBED Insulin Detemir [Levemir] 20 unit SUBCUT BEDTIME 05/06/16 05:00 BASIC METABOLIC PANEL,BMP [CHEM] Timed CBC W/O DIFF,HEMOGRAM [HEME] Timed (1) 05/06/16 07:30 GLUCOSE POC LAB TO COLLECT [POC] QIDACANDBED Pantoprazole [Protonix] 40 mg PO ACBREAKFAST 05/06/16 11:30 GLUCOSE POC LAB TO COLLECT [POC] QIDACANDBED 05/06/16 16:30 GLUCOSE POC LAB TO COLLECT [POC] QIDACANDBED 05/06/16 21:00 GLUCOSE POC LAB TO COLLECT [POC] QIDACANDBED 05/07/16 07:30 GLUCOSE POC LAB TO COLLECT [POC] QIDACANDBED 05/07/16 11:30 GLUCOSE POC LAB TO COLLECT [POC] QIDACANDBED 05/07/16 16:30 GLUCOSE POC LAB TO COLLECT [POC] QIDACANDBED 05/07/16 21:00 GLUCOSE POC LAB TO COLLECT [POC] QIDACANDBED - Plan Plan:: ASSESSMENT / PLAN Gastroenteritis - likely viral. clinically improving, tolerating clear liquids fairly well but still has some nausea. -gentle IV fluids -anti-emetics -pain control -Clear liquids, consider advancing later if tolerating Diabetes Type 1 - sugars elevated on arrival but on the low side of normal this morning. -decreased levimir 20 units at hs -continue sliding scale insulin; medium coveage, see protocol Diabetic foot ulcer, right foot - chronic, followed in the wound clinic. No evidence for acute infection. -Followup with Dr. Macario Maintenance issues -Nutrition: clear liquids -Santo catheter not indicated at this time -DVT: SCD -GI prophalaxis; Protonix Disposition - home with family, possibly tomorrow if we can advance his diet García Hilton M.D.
[2016-05-05] MEDS ORDERED: Potassium Chloride 20 MEQ Tab.ER PO ONE (12:00)
[2016-05-05] MEDS ORDERED: Insulin Detemir 100 Units/ML 3 ML Pen SUBCUT SCH (21:00)
[2016-05-05] MEDS: Simvastatin 20 MG Tab PO SCH (21:42)
[2016-05-06] MEDS ORDERED: Pantoprazole 40 MG Tab.CR PO SCH (07:30)
[2016-05-06] MEDS: Insulin Aspart 100 Units/ML 3 ML Pen SUBCUT SCH ×2 (08:46→12:44)
[2016-05-06] MEDS: Multivitamins with Iron/Calcium/Folic Acid/Minerals Tab PO SCH (08:51)
[2016-05-06] MEDS: Gabapentin 300 MG Cap PO SCH (08:51)
[2016-05-06 11:02] VITALS: BP 132/90
--- NOTE | 2016-05-06 12:34 | PCM.DCSUM1 ---
Discharge Summary - Hospital Course Brief History: 46-year-old male with history of type 1 diabetes mellitus and chronic right foot ulcer who presented with nausea, vomiting and diarrhea. He was admitted for management of gastroenteritis. - Discharge Data Discharge Date: 05/06/16 Discharge Disposition: Home, Self-Care 01 Condition: Good - Discharge Diagnosis/Problem(s) (1) Gastroenteritis SNOMED Code(s): 18645392 ICD Code: K52.9 - NONINFECTIVE GASTROENTERITIS AND COLITIS, UNSPECIFIED Status: Acute Priority: High Current Visit: Yes (2) Type 1 diabetes mellitus with hyperglycemia SNOMED Code(s): 578781213468115, [id number] ICD Code: E10.65 - TYPE 1 DIABETES MELLITUS WITH HYPERGLYCEMIA Status: Acute Current Visit: Yes - Patient Summary/Data Hospital Course: a 46-year-old male with history of type 1 diabetes and chronic right foot ulcer who presented with nausea, vomiting, diarrhea and hyperglycemia. Workup in the emergency room suggested acute gastroenteritis with significant dehydration. He was admitted to the hospital for IV fluids and symptomatic management. The next couple days his nausea did slowly subside. His vomiting resolved. He did not have significant diarrhea during the hospital stay. Laboratory studies alternate ports normal. Clinically he improved and significant improvement was noted in the 48 hours leading up to hospital discharge. He has not had any fevers. Unable to advance his diet to a soft bland diet. Not have significant nausea at this time. He has been up and walking around and feels much better than the time of admission. Blood sugars have been much better following symptomatic management and IV fluids as discussed above. I believe he seen for outpatient management at this time. he was discharged to home with his usual home medications. He was encouraged to maintain adequate hydration and continue a soft bland diet for the next few days before slowly reintroducing his usual foods. Probably was hospitalized we did have Dr. Macario will His chronic right foot wound because he missed a clinic appointment due to the hospitalization. There were no acute needs and he'll be following up as scheduled with Dr. Macario. - Patient Instructions Diet: Diabetic Diet Activity: As Tolerated Driving: May Drive Today Showering/Bathing: May Shower Notify Provider of: Fever, Increased Pain, Nausea and/or Vomiting Other/Special Instructions: 1. You were in the hospital for management of acute viral gastroenteritis with diarrhea,nausea and vomiting. Your symptoms seem to have resolved at this point. I would strongly recommend a soft and bland diet with plenty of fluids for the next few days until you feel back to normal. You can slowly reintroduce your regular foods after this. 2. Please see to medical attention if you develop fever greater than 101, severe nausea with vomiting or severe diarrhea with dehydration - Discharge Plan Prescriptions/Med Rec: LORazepam 0.5 mg PO Q8H PRN #10 tablet PRN Reason: Nausea Home Medications: Home Meds Acetaminophen [Tylenol Extra Strength] 1,000 mg PO Q6HR 08/18/15 [History] Aspirin [Lo-Dose Aspirin EC] 81 mg PO DAILY 08/18/15 [History] Multivitamin [Men's Multi-Vitamin] 1 mg PO DAILY 08/18/15 [History] Insulin Aspart [NovoLOG] 1 unit SUBCUT WITHMEALSANDBED 10/05/15 [History] Insulin Detemir [Levemir] 30 unit SUBCUT BEDTIME 10/05/15 [History] Famotidine 40 mg PO DAILY #30 tablet 03/21/16 [Rx] Gabapentin [Neurontin] 300 mg PO TID 03/21/16 [History] Simvastatin [Zocor] 1 tab PO BEDTIME 05/03/16 [History] LORazepam 0.5 mg PO Q8H PRN #10 tablet 05/06/16 [Rx] Patient Handouts: Viral Gastroenteritis, Adult Referrals: Jeovany Jensen PA [[employer]] - (please followup if symptoms do not continue to get better or if they worsen) - Discharge Summary/Plan Comment DC Time >30 min.: No (25) - Patient Data Vitals - Most Recent: Last Vital Signs Temp 36.8 C 05/06/16 11:01 Pulse 80 05/06/16 11:01 Resp 18 05/06/16 11:01 BP 132/90 05/06/16 11:01 Pulse Ox 99 05/06/16 11:01 Weight - Most Recent: 79.016 kg I&O - Last 24 hours: Intake & Output 05/05/16 05/06/16 05/06/16 22:59 06:59 14:59 Intake Total 1820 360 Output Total 0345 878 1785 Balance 620 600 -740 Lab Results - Last 24 hrs: Laboratory Results - last 24 hr 05/06/16 05/06/16 Range/Units 05:40 05:40 WBC 10.0 (4.5-11.0) K/uL RBC 4.84 (4.30-5.90) M/uL Hgb 13.9 (12.0-15.0) g/dL Hct 41.3 (40.0-54.0) % MCV 85 (80-98) fL MCH 29 (27-31) pg MCHC 34 (32-36) % Plt Count 332 (150-400) K/uL Sodium 139 L (140-148) mmol/L Potassium 3.7 (3.6-5.2) mmol/L Chloride 106 (100-108) mmol/L Carbon Dioxide 30 (21-32) mmol/L Anion Gap 6.7 (5.0-14.0) mmol/L BUN 15 (7-18) mg/dL Creatinine 1.0 (0.8-1.3) mg/dL Est Cr Clr Drug Dosing 93.36 mL/min Estimated GFR (MDRD) > 60 (>60) Glucose 97 (74-106) mg/dL Calcium 8.2 L (8.5-10.1) mg/dL [place] Results - Last 24 hrs: Microbiology 05/04/16 08:33 Aerobic Blood Culture - Preliminary Blood - Arm, Right NO GROWTH AFTER 2 DAYS Anaerobic Blood Culture - Preliminary NO GROWTH AFTER 2 DAYS 05/04/16 08:38 Aerobic Blood Culture - Preliminary Blood - Arm, Left NO GROWTH AFTER 2 DAYS Anaerobic Blood Culture - Preliminary NO GROWTH AFTER 2 DAYS Med Orders - Current: Current Medications Acetaminophen (Tylenol) 650 mg PO Q4H PRN PRN Reason: Pain (Mild 1-3)/fever Last Admin: 05/05/16 09:10 Dose: 650 mg Al Hydroxide/Mg Hydroxide (Mag-Al Plus) 30 ml PO Q4H PRN PRN Reason: upset stomach Last Admin: 05/04/16 12:01 Dose: 30 ml Albuterol (Proventil Neb Soln) 2.5 mg NEB Q4H PRN PRN Reason: Shortness Of Breath/wheezing Docusate Sodium (Colace) 100 mg PO BID PRN PRN Reason: Constipation Last Admin: 05/04/16 14:24 Dose: 100 mg Gabapentin (Neurontin) 300 mg PO TID [facility] Last Admin: 05/06/16 08:51 Dose: 300 mg Sodium Chloride (Normal Saline) 1,000 mls @ 50 mls/hr IV ASDIRECTED [facility] Insulin Aspart (Novolog) 0 unit SUBCUT ASDIRECTED [facility] PRN Reason: Protocol Last Admin: 05/04/16 22:03 Dose: 2 units Insulin Aspart (Novolog) 0 unit SUBCUT WITHMEALSANDBED [facility] Last Admin: 05/06/16 08:46 Dose: Not Given Insulin Detemir (Levemir) 20 unit SUBCUT BEDTIME [facility] Last Admin: 05/05/16 21:41 Dose: 20 units Lorazepam (Ativan) 1 mg IV Q4H PRN PRN Reason: Nausea/Vomiting Last Admin: 05/05/16 21:41 Dose: 1 mg Multivitamins/Minerals (Thera M Plus) 1 tab PO DAILY [facility] Last Admin: 05/06/16 08:51 Dose: 1 tab Oxycodone HCl (Oxycodone) 10 mg PO Q4H PRN PRN Reason: Pain (moderate 4-6) Pantoprazole Sodium (Protonix) 40 mg PO ACBREAKFAST [facility] Last Admin: 05/06/16 08:51 Dose: 40 mg Promethazine HCl (Phenergan) 25 mg PO Q6H PRN PRN Reason: Nausea able to take PO Last Admin: 05/04/16 04:58 Dose: 25 mg Simvastatin (Zocor) 20 mg PO BEDTIME [facility] Last Admin: 05/05/16 21:42 Dose: 20 mg Sodium Chloride (Saline Flush) 10 ml FLUSH ASDIRECTED PRN PRN Reason: Keep Vein Open Last Admin: 05/03/16 23:10 Dose: 10 ml Zolpidem Tartrate (Ambien) 5 mg PO BEDTIME PRN PRN Reason: Sleep Discontinued Medications Sodium Chloride (Normal Saline) 1,000 mls @ 999 mls/hr IV ASDIRECTED [facility] Last Admin: 05/03/16 23:11 Dose: 999 mls/hr Sodium Chloride (Normal Saline) 1,000 mls @ 999 mls/hr IV ASDIRECTED [facility] Last Admin: 05/04/16 00:51 Dose: 999 mls/hr Sodium Chloride (Normal Saline) 1,000 mls @ 125 mls/hr IV ASDIRECTED [facility] Last Infusion: 05/05/16 13:43 Dose: 50 mls/hr Levofloxacin/Dextrose 500 mg/ (Premix) 100 mls @ 100 mls/hr IV Q24H [facility] Last Admin: 05/04/16 09:35 Dose: Not Given Insulin Detemir (Levemir) 30 unit SUBCUT BEDTIME [facility] Last Admin: 05/04/16 22:02 Dose: 30 units Lorazepam (Ativan) 1 mg IVPUSH ONETIME ONE Stop: 05/04/16 01:12 Last Admin: 05/04/16 01:21 Dose: 1 mg Lorazepam (Ativan) 1 mg IV Q6H PRN PRN Reason: Nausea/Vomiting Last Admin: 05/04/16 07:48 Dose: 1 mg Pantoprazole Sodium (Protonix Iv) 40 mg IVPUSH DAILY@0730 [facility] Last Admin: 05/05/16 08:50 Dose: 40 mg Potassium Chloride (Klor-Con M20) 40 meq PO ONETIME ONE Stop: 05/05/16 12:01 Last Admin: 05/05/16 13:39 Dose: 40 meq Prochlorperazine Edisylate (Compazine) 5 mg IVPUSH ONETIME ONE Stop: 05/03/16 22:53 Last Admin: 05/03/16 23:09 Dose: 5 mg *Q Meaningful Use (DIS) - VTE *Q VTE Criteria *Q: - Stroke *Q Stroke Criteria *Q: - AMI *Q AMI Criteria *Q:
== END 2016-05-06 14:15 | disposition home or self-care (01) | DRG 392 ==
LOC: JP.ED 21:43 → JP.MS 05-04 01:16
PROVIDERS: ADMIT Internal Medicine; ATTEND Internal Medicine
DX: K52.9 Noninfective gastroenteritis and colitis, unspecified (principal); A08.4 Viral intestinal infection, unspecified; E86.0 Dehydration; E10.65 Type 1 diabetes mellitus with hyperglycemia; E10.42 Type 1 diabetes mellitus with diabetic polyneuropathy; E10.621 Type 1 diabetes mellitus with foot ulcer; L97.519 Non-pressure chronic ulcer of other part of right foot with unspecified severity; Z79.4 Long term (current) use of insulin; E78.00 Pure hypercholesterolemia, unspecified; Z87.891 Personal history of nicotine dependence; H54.7 Unspecified visual loss; Z79.82 Long term (current) use of aspirin; Z88.8 Allergy status to other drugs, medicaments and biological substances; Z89.421 Acquired absence of other right toe(s); I10 Essential (primary) hypertension; Z79.899 Other long term (current) drug therapy
CPT/HCPCS: 36415; 71020; 71020-26; 80048; 80053; 81001; 82009; 82803; 82962; 83605; 85025; 85027; 87040; 87804; 96361; 96374; 99284-25; A9270-GY; C9113; J0780; J2060; J7040; J7050

== ENCOUNTER 2017-02-11 14:00 | Observation (INO) | payer MEDICAID, OTHER ==
--- NOTE | 2017-02-11 15:05 | EDM.PDOC ---
ED HPI GENERAL MEDICAL PROBLEM - General Chief Complaint: Gastrointestinal Problem Stated Complaint: NAUSEA Time Seen by Provider: 02/11/17 14:57 Source of Information: Reports: Patient History Limitations: Reports: No Limitations - History of Present Illness INITIAL COMMENTS - FREE TEXT/NARRATIVE: pt arrived with vomiting since . He states he has not held anything down. He has lost 40 lbs in the last year. He is a diabetic and he has a open sore on his rt foot.He has not checked his sugars the last few days. Onset: Gradual Duration: Day(s): Associated Symptoms: Reports: No Other Symptoms Upper Abdominal Pain Score (Numeric/FACES): 7 - Related Data Allergies Allergy/AdvReac Type Severity Reaction Status Date / Time indomethacin Allergy Confusion Verified 02/11/17 14:35 metformin Allergy Other Verified 02/11/17 14:35 Home Meds: Home Meds Acetaminophen [Tylenol Extra Strength] 1,000 mg PO Q6HR 08/18/15 [History] Aspirin [Lo-Dose Aspirin EC] 81 mg PO DAILY 08/18/15 [History] Multivitamin [Men's Multi-Vitamin] 1 mg PO DAILY 08/18/15 [History] Insulin Aspart [NovoLOG] 1 unit SUBCUT WITHMEALSANDBED 10/05/15 [History] Insulin Detemir [Levemir] 30 unit SUBCUT BEDTIME 10/05/15 [History] Gabapentin [Neurontin] 300 mg PO TID 03/21/16 [History] Simvastatin [Zocor] 1 tab PO BEDTIME 05/03/16 [History] Ondansetron [Zofran ODT] 4 mg SL Q4H PRN #12 tab.dis 02/12/17 [Rx] Pantoprazole [ProTONIX] 40 mg PO ACBREAKFAST #30 tab.cr 02/12/17 [Rx] Past Medical History HEENT History: Reports: Impaired Vision Cardiovascular History: Reports: High Cholesterol, Hypertension Musculoskeletal History: Reports: RA Other Musculoskeletal History: . Neurological History: Reports: Neuropathy, Peripheral Endocrine/Metabolic History: Reports: Diabetes, Type I - Infectious Disease History Infectious Disease History: Reports: Chicken Pox - Past Surgical History Musculoskeletal Surgical History: Reports: Shoulder Surgery, Other (See Below) Social & Family History - Family History Family Medical History: Noncontributory Cardiac: Reports: Cardiomyopathy Other Cardiac Family History: Father Endocrine/Metabolic: Reports: Diabetes, type II Other Endocrine/Metabolic Family History: Grandma - Tobacco Use Smoking Status *Q: Never Smoker Years of Tobacco use: 3 Packs/Tins Daily: 2 Used Tobacco, but Quit: Yes Month Tobacco Last Used: 36 Second Hand Smoke Exposure: No - Caffeine Use Caffeine Use: Reports: None Other Caffeine Use: 2 cups daily - Recreational Drug Use Recreational Drug Use: Yes Drug Use in Last 12 Months: Yes Recreational Drug Type: Reports: Marijuana/Hashish Recreational Drug Use Frequency: Daily Recreational Drug Last Use: 8 hrs ago - Living Situation & Occupation Living situation: Reports: , Alone Occupation: Employed ED ROS GENERAL - Review of Systems Review Of Systems: See Below Constitutional: Reports: Malaise, Weakness, Decreased Appetite, Weight Loss HEENT: Reports: No Symptoms Respiratory: Reports: No Symptoms Cardiovascular: Reports: No Symptoms Endocrine: Reports: No Symptoms GI/Abdominal: Reports: Abdominal Pain, Nausea, Vomiting : Reports: No Symptoms Musculoskeletal: Reports: No Symptoms ED EXAM, GI/ABD - Physical Exam Exam: See Below Text/Narrative:: Pt arrived feeling sob and weak. He has lost 40 lbs in the last year. He has been vomiting since . Exam Limited By: No Limitations General Appearance: Alert, Anxious, Moderate Distress Eyes: Bilateral: Normal Appearance, EOMI Ears: Normal TMs Nose: Normal Inspection Throat/Mouth: Normal Inspection Head: Atraumatic Neck: Normal Inspection Respiratory/Chest: No Respiratory Distress Cardiovascular: Regular Rate, Rhythm GI/Abdominal Exam: Other (pain in the upper abdoman. He is having regular soft stools. ) Rectal (Males) Exam: Deferred Back Exam: Normal Inspection Neurological: Alert, Oriented, Normal Cognition Course - Vital Signs Last Recorded V/S: Last Vital Signs Temp 36.4 C 02/12/17 10:24 Pulse 69 02/12/17 10:24 Resp 18 02/12/17 10:24 BP 135/78 02/12/17 10:24 Pulse Ox 97 02/12/17 10:24 - Orders/Labs/Meds Labs: Laboratory Tests 02/11/17 02/11/17 02/11/17 Range/Units 15:12 15:12 15:55 WBC 14.3 H (4.5-11.0) K/uL RBC 5.20 (4.30-5.90) M/uL Hgb 15.2 H (12.0-15.0) g/dL Hct 43.4 (40.0-54.0) % MCV 84 (80-98) fL MCH 29 (27-31) pg MCHC 35 (32-36) % Plt Count 291 (150-400) K/uL Neut % (Auto) 82 H (36-66) % Lymph % (Auto) 11 L (24-44) % [place] % (Auto) 7 H (2-6) % Eos % (Auto) 0 L (2-4) % Baso % (Auto) 0 (0-1) % Sodium 136 L (140-148) mmol/L Potassium 3.4 L (3.6-5.2) mmol/L Chloride 95 L (100-108) mmol/L Carbon Dioxide 28 (21-32) mmol/L Anion Gap 16.4 H (5.0-14.0) mmol/L BUN 15 (7-18) mg/dL Creatinine 1.3 (0.8-1.3) mg/dL Est Cr Clr Drug Dosing 69.49 mL/min Estimated GFR (MDRD) 59 L (>60) Glucose 201 H (74-106) mg/dL Calcium 9.4 (8.5-10.1) mg/dL Total Bilirubin 1.0 (0.2-1.0) mg/dL AST 16 (15-37) U/L ALT 16 (12-78) U/L Alkaline Phosphatase 79 (46-116) U/L C-Reactive Protein 0.30 (0.0-0.3) mg/dL Total Protein 8.1 (6.4-8.2) g/dL Albumin 4.0 (3.4-5.0) g/dL Globulin 4.1 H (2.3-3.5) g/dL Albumin/Globulin Ratio 1.0 L (1.2-2.2) Lipase (73-393) U/L Urine Color Yellow Urine Appearance Clear Urine pH 7.0 (4.5-8.0) Ur Specific [place] 1.015 (1.008-1.030) Urine Protein Trace (NEGATIVE) mg/dL Urine Glucose (UA) 50 H (NEGATIVE) mg/dL Urine Ketones 15 H (NEGATIVE) mg/dL Urine Occult Blood Negative (NEGATIVE) Urine Nitrite Negative (NEGAITVE) Urine Bilirubin Negative (NEGATIVE) Urine Urobilinogen 4 (NORMAL) mg/dL Ur Leukocyte Esterase Negative (NEGATIVE) Urine RBC 0-5 (0-5) Urine WBC 0-5 (0-5) Ur Epithelial Cells Rare Amorphous Sediment Not seen Urine Bacteria Rare Urine Mucus Not seen 02/11/17 Range/Units 16:18 WBC (4.5-11.0) K/uL RBC (4.30-5.90) M/uL Hgb (12.0-15.0) g/dL Hct (40.0-54.0) % MCV (80-98) fL MCH (27-31) pg MCHC (32-36) % Plt Count (150-400) K/uL Neut % (Auto) (36-66) % Lymph % (Auto) (24-44) % [place] % (Auto) (2-6) % Eos % (Auto) (2-4) % Baso % (Auto) (0-1) % Sodium (140-148) mmol/L Potassium (3.6-5.2) mmol/L Chloride (100-108) mmol/L Carbon Dioxide (21-32) mmol/L Anion Gap (5.0-14.0) mmol/L BUN (7-18) mg/dL Creatinine (0.8-1.3) mg/dL Est Cr Clr Drug Dosing mL/min Estimated GFR (MDRD) (>60) Glucose (74-106) mg/dL Calcium (8.5-10.1) mg/dL Total Bilirubin (0.2-1.0) mg/dL AST (15-37) U/L ALT (12-78) U/L Alkaline Phosphatase (46-116) U/L C-Reactive Protein (0.0-0.3) mg/dL Total Protein (6.4-8.2) g/dL Albumin (3.4-5.0) g/dL Globulin (2.3-3.5) g/dL Albumin/Globulin Ratio (1.2-2.2) Lipase 66 L (73-393) U/L Urine Color Urine Appearance Urine pH (4.5-8.0) Ur Specific [place] (1.008-1.030) Urine Protein (NEGATIVE) mg/dL Urine Glucose (UA) (NEGATIVE) mg/dL Urine Ketones (NEGATIVE) mg/dL Urine Occult Blood (NEGATIVE) Urine Nitrite (NEGAITVE) Urine Bilirubin (NEGATIVE) Urine Urobilinogen (NORMAL) mg/dL Ur Leukocyte Esterase (NEGATIVE) Urine RBC (0-5) Urine WBC (0-5) Ur Epithelial Cells Amorphous Sediment Urine Bacteria Urine Mucus Meds: Medications Discontinued Medications Generic Name Dose Route Start Last Admin Trade Name Freq PRN Reason Stop Dose Admin Acetaminophen 650 mg 02/11/17 20:10 02/12/17 00:24 Tylenol PO 650 mg Q4H PRN Administration Pain (Mild 1-3)/fever Aspirin 81 mg 02/12/17 09:00 02/12/17 08:38 Halfprin PO 81 mg DAILY GT Administration Gabapentin 300 mg 02/11/17 21:00 02/12/17 08:38 Neurontin PO 300 mg TID GT Administration Hydromorphone HCl 0.5 mg 02/11/17 16:48 02/11/17 17:00 Dilaudid IVPUSH 02/11/17 16:49 0.5 mg ONETIME ONE Administration Hydromorphone HCl 0.5 - 1 mg 02/11/17 20:10 Dilaudid IVPUSH Q2H PRN Pain (severe 7-10) Sodium Chloride 1,000 mls @ 999 mls/hr 02/11/17 15:15 02/11/17 15:27 Normal Saline IV 999 mls/hr ASDIRECTED GT Administration Sodium Chloride 1,000 mls @ 999 mls/hr 02/11/17 16:30 02/11/17 16:32 Normal Saline IV 999 mls/hr ASDIRECTED GT Administration Sodium Chloride 75 mls @ 3.6 mls/sec 02/11/17 17:01 02/11/17 17:20 Normal Saline IV 02/11/17 17:02 3.6 mls/sec ASDIRECTED STA Administration Potassium Chloride/Sodium Chloride 1,000 mls @ 100 mls/hr 02/11/17 18:15 01/19 06:29 Normal Saline With 20 Meq Kcl IV 100 mls/hr ASDIRECTED GT Administration Potassium Chloride 20 meq/ 112 mls @ 50 mls/hr 02/11/17 20:30 02/12/17 04:57 Lidocaine HCl 2 ml/ Sodium IV 02/12/17 00:29 50 mls/hr Chloride Q2H GT Administration Potassium Chloride Confirm 02/11/17 20:25 02/12/17 08:06 Kcl 20 Meq In Water 100 Ml Administered 02/11/17 20:26 Not Given Dose 100 mls @ as directed .ROUTE .STK-MED ONE Potassium Chloride Confirm 02/11/17 23:11 02/12/17 08:06 Kcl 20 Meq In Water 100 Ml Administered 02/11/17 23:12 Not Given Dose 100 mls @ as directed .ROUTE .STK-MED ONE Influenza Virus Vaccine 1 each 02/11/17 20:50 Pharmacy To Dose - Influenza Vaccine IM 02/11/17 20:51 ONETIME ONE Influenza Virus Vaccine 60 mcg 02/12/17 10:00 02/12/17 10:27 Fluzone Quad [id number] IM 02/12/17 10:01 60 mcg .ONCE ONE Administration Insulin Aspart 3 unit 02/12/17 08:00 02/12/17 08:31 Novolog SUBCUT 2 units TIDMEALS GT Administration Insulin Aspart 0 unit 02/11/17 20:10 02/12/17 07:40 Novolog SUBCUT Not Given QIDACANDBED [facility] Protocol Iopamidol 117 ml 02/11/17 17:00 02/11/17 17:20 Isovue-300 (61%) IV 02/11/17 17:01 150 ml . DIRECTED STA Administration Lidocaine HCl Confirm 02/11/17 20:25 02/11/17 21:00 Xylocaine-Mpf 1% Administered 02/11/17 20:26 Not Given Dose 5 ml .ROUTE .STK-MED ONE Lidocaine HCl Confirm 02/11/17 23:11 02/11/17 23:22 Xylocaine-Mpf 1% Administered 02/11/17 23:12 2 ml Dose Administration 5 ml .ROUTE .STK-MED ONE Lorazepam 0.5 mg 02/11/17 15:07 02/11/17 15:26 Ativan IVPUSH 02/11/17 15:08 0.5 mg ONETIME ONE Administration Lorazepam 0.5 - 1 mg 02/11/17 20:10 Ativan IVPUSH Q4H PRN Nausea/Vomiting Metoclopramide HCl 10 mg 02/11/17 16:45 02/11/17 17:00 Reglan IV 02/11/17 16:46 10 mg ONETIME ONE Administration Ondansetron HCl 4 mg 02/11/17 15:06 02/11/17 15:26 Zofran IVPUSH 02/11/17 15:07 4 mg ONETIME ONE Administration Ondansetron HCl 4 mg 02/11/17 20:10 Zofran Odt PO Q6H PRN Nausea able to take PO Ondansetron HCl 4 mg 02/11/17 20:10 02/11/17 20:31 Zofran IV 4 mg Q6H PRN Administration Nausea/Vomiting Oxycodone HCl 5 mg 02/11/17 20:10 Oxycodone PO Q4H PRN Pain Pantoprazole Sodium 40 mg 02/11/17 16:46 02/11/17 17:00 Protonix Iv IVPUSH 02/11/17 16:47 40 mg ONETIME ONE Administration Pantoprazole Sodium 40 mg 02/12/17 07:30 02/12/17 08:24 Protonix PO 40 mg ACBREAKFAST GT Administration Pneumococcal Polyvalent Vaccine 0.5 ml 02/12/17 10:45 02/12/17 10:33 Pneumovax 23 IM 02/12/17 10:46 0.5 ml .ONCE ONE Administration Simvastatin 20 mg 02/11/17 21:00 02/11/17 21:15 Zocor PO 20 mg BEDTIME GT Administration - Re-Assessments/Exams Free Text/Narrative Re-Assessment/Exam: 02/11/17 16:49 lab work has returned showing dehydration. he has having a fair amount of pain in the left mid abdoman. 02/11/17 17:59 pt was persistently vomiting . Lab work looked fairly good. His bs was 201 Departure - Departure Time of Disposition: 18:01 Disposition: Admitted As Inpatient 65 Condition: Fair Clinical Impression: Dehydration, Abdominal pain, Diabetes mellitus, Foot ulcer due to secondary DM - Discharge Information
[2017-02-11] MEDS ORDERED: Ondansetron 4 MG/2 ML SDV IVPUSH ONE (15:06)
[2017-02-11] MEDS ORDERED: LORazepam 2 MG/ML MDV IVPUSH ONE (15:07)
[2017-02-11] MEDS ORDERED: Sodium Chloride 0.9% 1,000 ML IV SCH ×2 (15:15→16:30)
[2017-02-11] MEDS ORDERED: Metoclopramide 10 MG/2 ML SDV IV ONE (16:45)
[2017-02-11] MEDS ORDERED: Pantoprazole 40 MG Vial IVPUSH ONE (16:46)
[2017-02-11] MEDS ORDERED: HYDROmorphone 0.5 MG/0.5 ML Syringe IVPUSH ONE (16:48)
[2017-02-11] MEDS ORDERED: Iopamidol 612 MG/ML 150 ML Bottle IV STA (17:00)
[2017-02-11] MEDS ORDERED: Sodium Chloride 0.9% 75 ML IV STA (17:01)
--- NOTE | 2017-02-11 18:18 | PCM.HP ---
H&P History of Present Illness - General Date of Service: 02/11/17 Admit Problem/Dx: Admission Diagnosis/Problem Admission Diagnosis/Problem Gastritis Source of Information: Patient, Provider History Limitations: Reports: No Limitations - History of Present Illness Initial Comments - Free Text/Narative: Musa presents to the emergency room today with 3 days of nausea with vomiting as well as moderate generalized abdominal pain. Pain is described as burning in nature and is most impressive in the epigastric area. The pain radiates to the left and to the right from the midepigastrium. He hasn't taken anything to make the pain feel better. Hiccups and vomiting seem to make the pain worse. He is not aware of any fevers. He reports that he has not kept any food or fluid down for the past 2-3 days. Every time he tries to drink something he vomits it back up. No diarrhea. No change in bladder habits. He hasn't taken his insulin the past few days because he has not been eating anything. He reports diffuse myalgias but no arthralgias. No obvious sick contacts. He reports some dyspnea with exertion over the past 2 days but has not had any chest pain. Workup in the emergency room reassuring other than mild hypokalemia and some mild dehydration. CT scan was negative and chest x-ray was negative. He will be admitted for hydration and symptom management. Upper Abdominal Pain Score (Numeric/FACES): 7 - Related Data Allergies/Adverse Reactions: Allergies Allergy/AdvReac Type Severity Reaction Status Date / Time indomethacin Allergy Confusion Verified 02/11/17 14:35 metformin Allergy Other Verified 02/11/17 14:35 Home Medications: Home Meds Acetaminophen [Tylenol Extra Strength] 1,000 mg PO Q6HR 08/18/15 [History] Aspirin [Lo-Dose Aspirin EC] 81 mg PO DAILY 08/18/15 [History] Multivitamin [Men's Multi-Vitamin] 1 mg PO DAILY 08/18/15 [History] Insulin Aspart [NovoLOG] 1 unit SUBCUT WITHMEALSANDBED 10/05/15 [History] Insulin Detemir [Levemir] 30 unit SUBCUT BEDTIME 10/05/15 [History] Gabapentin [Neurontin] 300 mg PO TID 03/21/16 [History] Simvastatin [Zocor] 1 tab PO BEDTIME 05/03/16 [History] Past Medical History HEENT History: Reports: Impaired Vision Cardiovascular History: Reports: High Cholesterol, Hypertension Musculoskeletal History: Reports: RA Other Musculoskeletal History: . Neurological History: Reports: Neuropathy, Peripheral Endocrine/Metabolic History: Reports: Diabetes, Type I - Infectious Disease History Infectious Disease History: Reports: Chicken Pox - Past Surgical History Musculoskeletal Surgical History: Reports: Shoulder Surgery, Other (See Below) Social & Family History - Family History Family Medical History: Noncontributory Cardiac: Reports: Cardiomyopathy Other Cardiac Family History: Father Endocrine/Metabolic: Reports: Diabetes, type II Other Endocrine/Metabolic Family History: Grandma - Tobacco Use Smoking Status *Q: Never Smoker Years of Tobacco use: 3 Packs/Tins Daily: 2 Used Tobacco, but Quit: Yes Month Tobacco Last Used: 36 Second Hand Smoke Exposure: No - Caffeine Use Caffeine Use: Reports: None Other Caffeine Use: 2 cups daily - Alcohol Use Alcohol Use History: No - Recreational Drug Use Recreational Drug Use: Yes Drug Use in Last 12 Months: Yes Recreational Drug Type: Reports: Marijuana/Hashish Recreational Drug Use Frequency: Daily Recreational Drug Last Use: 8 hrs ago - Living Situation & Occupation Living situation: Reports: , Alone Occupation: Employed H&P Review of Systems - Review of Systems: Review Of Systems: See Below Free Text/Narrative: A complete 12 point review of systems was obtained. Pertinent positives and negatives are noted in the history of present illness. All other systems were reviewed and were negative except as noted. Exam - Exam Exam: See Below - Vital Signs Vital Signs: Last Vital Signs Temp 36.8 C 02/11/17 14:43 Pulse 99 02/11/17 17:46 Resp 20 02/11/17 17:46 BP 199/111 H 02/11/17 17:46 Pulse Ox 97 02/11/17 17:46 Weight: 77.9 kg - Exam Quality Assessment: No: Supplemental Oxygen General: Alert, Oriented, Cooperative. No: Mild Distress HEENT: Conjunctiva Clear. No: Mucosa Moist & [place] (dry), Scleral Icterus Neck: Supple, Trachea Midline. No: Lymphadenopathy Lungs: Clear to Auscultation, Normal Respiratory Effort Cardiovascular: Regular Rate, Regular Rhythm, Systolic Murmur GI/Abdominal Exam: Normal Bowel Sounds, Soft, No Distention, No Mass, Tender ( mild diffuse) Back Exam: Normal Inspection, Full Range of Motion Extremities: No Pedal Edema, Other (open wound bottom of right foot. No drainage or erythema. Healing well ). No: Increased Warmth Peripheral Pulses: 2+: Dorsalis Pedis (L), Dorsalis Pedis (R) Skin: Warm, Dry Neuro Extensive - Mental Status: Alert, Oriented x3, Nl Response to Commands Neuro Extensive - Motor, Sensory, Reflexes: CN II-XII Intact. No: Dysarthria, Abnormal Motor, Tremor Psychiatric: Alert, Normal Affect - Patient Data Lab Results Last 24 hrs: Laboratory Results - last 24 hr 02/11/17 02/11/17 02/11/17 Range/Units 15:12 15:12 15:55 WBC 14.3 H (4.5-11.0) K/uL RBC 5.20 (4.30-5.90) M/uL Hgb 15.2 H (12.0-15.0) g/dL Hct 43.4 (40.0-54.0) % MCV 84 (80-98) fL MCH 29 (27-31) pg MCHC 35 (32-36) % Plt Count 291 (150-400) K/uL Neut % (Auto) 82 H (36-66) % Lymph % (Auto) 11 L (24-44) % [place] % (Auto) 7 H (2-6) % Eos % (Auto) 0 L (2-4) % Baso % (Auto) 0 (0-1) % Sodium 136 L (140-148) mmol/L Potassium 3.4 L (3.6-5.2) mmol/L Chloride 95 L (100-108) mmol/L Carbon Dioxide 28 (21-32) mmol/L Anion Gap 16.4 H (5.0-14.0) mmol/L BUN 15 (7-18) mg/dL Creatinine 1.3 (0.8-1.3) mg/dL Est Cr Clr Drug Dosing 69.49 mL/min Estimated GFR (MDRD) 59 L (>60) Glucose 201 H (74-106) mg/dL Calcium 9.4 (8.5-10.1) mg/dL Total Bilirubin 1.0 (0.2-1.0) mg/dL AST 16 (15-37) U/L ALT 16 (12-78) U/L Alkaline Phosphatase 79 (46-116) U/L C-Reactive Protein 0.30 (0.0-0.3) mg/dL Total Protein 8.1 (6.4-8.2) g/dL Albumin 4.0 (3.4-5.0) g/dL Globulin 4.1 H (2.3-3.5) g/dL Albumin/Globulin Ratio 1.0 L (1.2-2.2) Lipase (73-393) U/L Urine Color Yellow Urine Appearance Clear Urine pH 7.0 (4.5-8.0) Ur Specific [place] 1.015 (1.008-1.030) Urine Protein Trace (NEGATIVE) mg/dL Urine Glucose (UA) 50 H (NEGATIVE) mg/dL Urine Ketones 15 H (NEGATIVE) mg/dL Urine Occult Blood Negative (NEGATIVE) Urine Nitrite Negative (NEGAITVE) Urine Bilirubin Negative (NEGATIVE) Urine Urobilinogen 4 (NORMAL) mg/dL Ur Leukocyte Esterase Negative (NEGATIVE) Urine RBC 0-5 (0-5) Urine WBC 0-5 (0-5) Ur Epithelial Cells Rare Amorphous Sediment Not seen Urine Bacteria Rare Urine Mucus Not seen 02/11/17 Range/Units 16:18 WBC (4.5-11.0) K/uL RBC (4.30-5.90) M/uL Hgb (12.0-15.0) g/dL Hct (40.0-54.0) % MCV (80-98) fL MCH (27-31) pg MCHC (32-36) % Plt Count (150-400) K/uL Neut % (Auto) (36-66) % Lymph % (Auto) (24-44) % [place] % (Auto) (2-6) % Eos % (Auto) (2-4) % Baso % (Auto) (0-1) % Sodium (140-148) mmol/L Potassium (3.6-5.2) mmol/L Chloride (100-108) mmol/L Carbon Dioxide (21-32) mmol/L Anion Gap (5.0-14.0) mmol/L BUN (7-18) mg/dL Creatinine (0.8-1.3) mg/dL Est Cr Clr Drug Dosing mL/min Estimated GFR (MDRD) (>60) Glucose (74-106) mg/dL Calcium (8.5-10.1) mg/dL Total Bilirubin (0.2-1.0) mg/dL AST (15-37) U/L ALT (12-78) U/L Alkaline Phosphatase (46-116) U/L C-Reactive Protein (0.0-0.3) mg/dL Total Protein (6.4-8.2) g/dL Albumin (3.4-5.0) g/dL Globulin (2.3-3.5) g/dL Albumin/Globulin Ratio (1.2-2.2) Lipase 66 L (73-393) U/L Urine Color Urine Appearance Urine pH (4.5-8.0) Ur Specific [place] (1.008-1.030) Urine Protein (NEGATIVE) mg/dL Urine Glucose (UA) (NEGATIVE) mg/dL Urine Ketones (NEGATIVE) mg/dL Urine Occult Blood (NEGATIVE) Urine Nitrite (NEGAITVE) Urine Bilirubin (NEGATIVE) Urine Urobilinogen (NORMAL) mg/dL Ur Leukocyte Esterase (NEGATIVE) Urine RBC (0-5) Urine WBC (0-5) Ur Epithelial Cells Amorphous Sediment Urine Bacteria Urine Mucus Result Diagrams: 02/11/17 15:12 02/11/17 15:12 Imaging Impressions Last 24 hrs: CXR - images personally reviewed - clear with no mass, infiltrate, effusion or chf. CT abd/pelvis - images personally reviewed - no acute findings, possible mild thickening of the distal esophagus on one series but but not optimally distended. No obstruction *Q Meaningful Use (ADM) - VTE *Q VTE Criteria *Q: - VTE Risk Assess *Q Each Risk Factor Represents 1 Point: Age 41 - 59 years Total Score 1 Point Risk Factors: 1 Each Risk Factor Represents 2 Points: None Total Score 2 Point Risk Factors: 0 Each Risk Factor Represents 3 Points: None Total Score 3 Point Risk Factors: 0 Each Risk Factor Represents 5 Points: None Total Score 5 Point Risk Factors: 0 Venous Thromboembolism Risk Factor Score *Q: 1 - Stroke *Q Stroke Criteria *Q: - AMI *Q AMI Criteria *Q: - Problem List (1) Gastritis SNOMED Code(s): 4814135 ICD Code: K29.70 - GASTRITIS, UNSPECIFIED, WITHOUT BLEEDING Status: Acute Current Visit: Yes Qualifiers: Gastritis type: unspecified gastritis Chronicity: acute Gastritis bleeding: without bleeding Qualified Code(s): K29.00 - Acute gastritis without bleeding (2) Type 1 diabetes mellitus SNOMED Code(s): 77249395 ICD Code: E10.9 - TYPE 1 DIABETES MELLITUS WITHOUT COMPLICATIONS Status: Acute Current Visit: Yes Qualifiers: Diabetes mellitus complication status: with neurologic complications Diabetes mellitus complication detail: with polyneuropathy Qualified Code(s): E10.42 - Type 1 diabetes mellitus with diabetic polyneuropathy (3) Foot ulcer due to secondary DM SNOMED Code(s): 2500413 ICD Code: E13.621 - OTHER SPECIFIED DIABETES MELLITUS WITH FOOT ULCER; L97.509 - NON-PRESSURE CHRONIC ULCER OTH PRT UNSP FOOT W UNSP SEVERITY Status : Acute Current Visit: Yes Problem List Initiated/Reviewed/Updated: Yes Orders Last 24hrs: Active Orders 24 hr Category Date Time Status Patient Status Manage Transfer [TRANSFER] Routine ADT 02/11/17 18:06 Ordered Abdomen Pelvis w Cont [CT] Stat Exams 02/11/17 16:47 Taken Chest 1V Frontal [CR] Stat Exams 02/11/17 15:35 Taken NS + KCl 20mEq/L [Normal Saline with 20 mEq KCl] 1,000 Med 02/11/17 18:15 Active ml IV ASDIRECTED Sodium Chloride 0.9% [Normal Saline] 1,000 ml Med 02/11/17 15:15 Active IV ASDIRECTED Sodium Chloride 0.9% [Normal Saline] 1,000 ml Med 02/11/17 16:30 Active IV ASDIRECTED Resuscitation Status Routine Resus Stat 02/11/17 18:08 Ordered Medication Orders Sodium Chloride (Normal Saline) 1,000 mls @ 999 mls/hr IV ASDIRECTED GT Last Admin: 02/11/17 15:27 Dose: 999 mls/hr Sodium Chloride (Normal Saline) 1,000 mls @ 999 mls/hr IV ASDIRECTED GT Last Admin: 02/11/17 16:32 Dose: 999 mls/hr Potassium Chloride/Sodium Chloride (Normal Saline With 20 Meq Kcl) 1,000 mls @ 100 mls/hr IV ASDIRECTED GT Assessment/Plan Comment:: ASSESSMENT AND PLAN - Probable viral gastritis - workup including labs and CT was unremarkable. Examination is relatively benign. Patient does have some dehydration and mild hypokalemia. With duration of symptoms in the setting of diabetes I think he would benefit from overnight observation with symptomatic management and some additional fluids. With the acute nature I doubt this is gastroparesis. -Gentle fluids overnight -Clear liquids for now, advance as tolerated -Nausea and pain control Hypokalemia - mild, plan to replace and recheck in the morning. Insulin-dependent diabetes mellitus - patient reports his control has been good recently. Blood sugar 200 today. -Hold long-acting insulin until we see how his symptoms progress or regress -Reduced dose mealtime insulin -Low-dose sliding scale insulin Right sided diabetic foot ulcer - seems to be slowly healing and appears much better than last time I evaluated it. He has not been following with wound care because of insurance issues. -Outpatient follow-up with Dr. Macario Maintenance issues - - DVT prophylaxis - mechanical - GI prophylaxis - received PPI in the emergency room - Nutrition - clear liquids, advance as tolerated - [place] catheter - not indicated CODE STATUS - full code Admission justification - patient will be referred observation for hydration and symptom management Disposition - anticipate discharge to home tomorrow Primary care physician - Jeovany Hilton M.D.
[2017-02-11] MEDS ORDERED: LORazepam 2 MG/ML MDV IVPUSH PRN (20:10)
[2017-02-11] MEDS ORDERED: Ondansetron 4 MG/2 ML SDV IV PRN (20:10)
[2017-02-11] MEDS ORDERED: Ondansetron 4 MG Tab.DIS PO PRN (20:10)
[2017-02-11] MEDS ORDERED: oxyCODONE 5 MG Tab PO PRN (20:10)
[2017-02-11] MEDS ORDERED: Acetaminophen 325 MG Tab PO PRN (20:10)
[2017-02-11] MEDS ORDERED: HYDROmorphone 0.5 MG/0.5 ML Syringe IVPUSH PRN (20:10)
[2017-02-11] MEDS: NS + KCl 20mEq/L 1,000 ML IV SCH (20:24)
[2017-02-11] MEDS ORDERED: Pneumococcal Polyvalent-23 Vaccine 0.5 ML SDV IM ONE (20:50)
[2017-02-11] MEDS ORDERED: Simvastatin 20 MG Tab PO SCH (21:00)
[2017-02-11] MEDS: Potassium Chloride 100 ML ONE ×2 (21:00→23:22)
[2017-02-11] MEDS: Insulin Aspart 100 Units/ML 3 ML Pen SUBCUT SCH (21:01)
[2017-02-11] MEDS: Potassium Chloride 20 MEQ, Lidocaine 1% 2 ML in Sodium Chloride 0.9% 100 ML IV SCH ×2 (21:02→23:22)
[2017-02-11] MEDS: Gabapentin 300 MG Cap PO SCH (21:15)
[2017-02-12] MEDS: Potassium Chloride 20 MEQ, Lidocaine 1% 2 ML in Sodium Chloride 0.9% 100 ML IV SCH ×2 (04:14→04:57)
[2017-02-12] MEDS: Potassium Chloride 100 ML ONE ×3 (04:57→08:06)
[2017-02-12] MEDS: NS + KCl 20mEq/L 1,000 ML IV SCH (06:29)
[2017-02-12] MEDS ORDERED: Pantoprazole 40 MG Tab.CR PO SCH (07:30)
[2017-02-12] MEDS: Insulin Aspart 100 Units/ML 3 ML Pen SUBCUT SCH (07:40)
[2017-02-12] MEDS ORDERED: Insulin Aspart 100 Units/ML 3 ML Pen SUBCUT SCH (08:00)
[2017-02-12] MEDS: Gabapentin 300 MG Cap PO SCH (08:38)
[2017-02-12] MEDS ORDERED: Aspirin 81 MG Tab.EC PO SCH (09:00)
[2017-02-12] MEDS ORDERED: FLU Vacc QS 2017-18 (36mos UP)/PF 60 MCG/0.5 ML Syringe IM ONE (10:00)
--- NOTE | 2017-02-12 10:21 | CR ---
Heart size within normal limits. Pulmonary vasculature within normal limits. No focal consolidation.
[2017-02-12 10:25] VITALS: BP 135/78
[2017-02-12] MEDS ORDERED: Pneumococcal Polyvalent-23 Vaccine 0.5 ML SDV IM ONE ×2 (10:45→12:00)
--- NOTE | 2017-02-12 10:53 | PCM.DCSUM1 ---
Discharge Summary - Hospital Course Brief History: Mr. Dumont is a 47-year-old gentleman with type 1 diabetes mellitus, who was admitted through the emergency department with dehydration secondary to viral gastroenteritis. - Discharge Data Discharge Date: 02/12/17 Discharge Disposition: Home, Self-Care 01 Condition: Fair - Discharge Diagnosis/Problem(s) (1) Gastroenteritis SNOMED Code(s): 04726859 ICD Code: K52.9 - NONINFECTIVE GASTROENTERITIS AND COLITIS, UNSPECIFIED Status: Acute Current Visit: Yes (2) Dehydration SNOMED Code(s): 60425584 ICD Code: E86.0 - DEHYDRATION Status: Acute Current Visit: Yes (3) Foot ulcer due to secondary DM SNOMED Code(s): 0965238 ICD Code: E13.621 - OTHER SPECIFIED DIABETES MELLITUS WITH FOOT ULCER; L97.509 - NON-PRESSURE CHRONIC ULCER OTH PRT UNSP FOOT W UNSP SEVERITY Status : Chronic Current Visit: Yes (4) Type 1 diabetes mellitus SNOMED Code(s): 03564057 ICD Code: E10.9 - TYPE 1 DIABETES MELLITUS WITHOUT COMPLICATIONS Status: Acute Current Visit: Yes Qualifiers: Diabetes mellitus complication status: with neurologic complications Diabetes mellitus complication detail: with polyneuropathy Qualified Code(s): E10.42 - Type 1 diabetes mellitus with diabetic polyneuropathy - Patient Summary/Data Hospital Course: Mr. Dumont's 47-year-old gentleman with a known history of type 1 diabetes mellitus. Prior to admission he developed symptoms of nausea and vomiting, leaving him unable to keep any type of liquid or solid food down. He presented to the emergency department for further evaluation. Laboratory studies were unremarkable and CT scan of the abdomen showed no acute pathology. Was felt that he likely had dehydration secondary to viral gastroenteritis. He was admitted to the hospital and given IV fluids for hydration as well as anti- medic therapy. By the following morning he was feeling significantly improved and was tolerating a liquid diet without significant difficulty. Blood glucose levels were monitored during the hospital stay and he was treated with his usual long-acting insulins as well as sliding scale NovoLog. He has a chronic diabetic foot ulcer and has not seen Dr. Macario for some time because of lack of insurance. He now has insurance again and will be scheduled for an outpatient appointment to see Dr. Macario. He will remain on a liquid diet over the next 24 hours and then advance as tolerated and will monitor glucose levels on a regular basis. Follow-up appointment will be scheduled with his primary care provider within one week. - Patient Instructions Diet: Full Liquid Diet Diet, Other: Advance as tolerated Activity: As Tolerated Other/Special Instructions: Please schedule follow-up appointment with primary care provider within one week. Please schedule follow-up appointment with Dr. Macario for management of diabetic foot ulcer. - Discharge Plan Prescriptions/Med Rec: Ondansetron [Zofran ODT] 4 mg SL Q4H PRN #12 tab.dis PRN Reason: Nausea Pantoprazole [ProTONIX] 40 mg PO ACBREAKFAST #30 tab.cr Home Medications: Home Meds Acetaminophen [Tylenol Extra Strength] 1,000 mg PO Q6HR 08/18/15 [History] Aspirin [Lo-Dose Aspirin EC] 81 mg PO DAILY 08/18/15 [History] Multivitamin [Men's Multi-Vitamin] 1 mg PO DAILY 08/18/15 [History] Insulin Aspart [NovoLOG] 1 unit SUBCUT WITHMEALSANDBED 10/05/15 [History] Insulin Detemir [Levemir] 30 unit SUBCUT BEDTIME 10/05/15 [History] Gabapentin [Neurontin] 300 mg PO TID 03/21/16 [History] Simvastatin [Zocor] 1 tab PO BEDTIME 05/03/16 [History] Ondansetron [Zofran ODT] 4 mg SL Q4H PRN #12 tab.dis 02/12/17 [Rx] Pantoprazole [ProTONIX] 40 mg PO ACBREAKFAST #30 tab.cr 02/12/17 [Rx] Referrals: Juliet Natarajan [Registered Dietitian] - 02/21/17 2:30 pm Jeovayn Jensen PA [Primary Care Provider] - 02/22/17 1:00 pm Adam Macario MD [Physician] - 02/22/17 1:40 pm - Patient Data Vitals - Most Recent: Last Vital Signs Temp 97.6 F 02/12/17 10:24 Pulse 69 02/12/17 10:24 Resp 18 02/12/17 10:24 BP 135/78 02/12/17 10:24 Pulse Ox 97 02/12/17 10:24 Weight - Most Recent: 170 lb I&O - Last 24 hours: Intake & Output 02/11/17 02/12/17 02/12/17 22:59 06:59 14:59 Intake Total 240 1725 820 Balance 240 1725 820 Lab Results - Last 24 hrs: Laboratory Results - last 24 hr 02/12/17 02/12/17 Range/Units 05:56 05:56 WBC 9.7 (4.5-11.0) K/uL RBC 4.28 L (4.30-5.90) M/uL Hgb 12.2 D (12.0-15.0) g/dL Hct 36.6 L (40.0-54.0) % MCV 86 (80-98) fL MCH 29 (27-31) pg MCHC 33 (32-36) % Plt Count 227 (150-400) K/uL Sodium 138 L (140-148) mmol/L Potassium 3.8 (3.6-5.2) mmol/L Chloride 103 (100-108) mmol/L Carbon Dioxide 28 (21-32) mmol/L Anion Gap 10.8 (5.0-14.0) mmol/L BUN 10 (7-18) mg/dL Creatinine 1.0 (0.8-1.3) mg/dL Est Cr Clr Drug Dosing 90.34 mL/min Estimated GFR (MDRD) > 60 (>60) Glucose 86 (74-106) mg/dL Calcium 8.5 (8.5-10.1) mg/dL Med Orders - Current: Current Medications Acetaminophen (Tylenol) 650 mg PO Q4H PRN PRN Reason: Pain (Mild 1-3)/fever Last Admin: 02/12/17 00:24 Dose: 650 mg Aspirin (Halfprin) 81 mg PO DAILY [facility] Last Admin: 02/12/17 08:38 Dose: 81 mg Gabapentin (Neurontin) 300 mg PO TID [facility] Last Admin: 02/12/17 08:38 Dose: 300 mg Hydromorphone HCl (Dilaudid) 0.5 - 1 mg IVPUSH Q2H PRN PRN Reason: Pain (severe 7-10) Potassium Chloride/Sodium Chloride (Normal Saline With 20 Meq Kcl) 1,000 mls @ 100 mls/hr IV ASDIRECTED [facility] Last Admin: 02/12/17 06:29 Dose: 100 mls/hr Insulin Aspart (Novolog) 3 unit SUBCUT TIDMEALS [facility] Last Admin: 02/12/17 08:31 Dose: 2 units Insulin Aspart (Novolog) 0 unit SUBCUT QIDACANDBED [facility] PRN Reason: Protocol Last Admin: 02/12/17 07:40 Dose: Not Given Lorazepam (Ativan) 0.5 - 1 mg IVPUSH Q4H PRN PRN Reason: Nausea/Vomiting Ondansetron HCl (Zofran Odt) 4 mg PO Q6H PRN PRN Reason: Nausea able to take PO Ondansetron HCl (Zofran) 4 mg IV Q6H PRN PRN Reason: Nausea/Vomiting Last Admin: 02/11/17 20:31 Dose: 4 mg Oxycodone HCl (Oxycodone) 5 mg PO Q4H PRN PRN Reason: Pain Pantoprazole Sodium (Protonix) 40 mg PO ACBREAKFAST [facility] Last Admin: 02/12/17 08:24 Dose: 40 mg Simvastatin (Zocor) 20 mg PO BEDTIME [facility] Last Admin: 02/11/17 21:15 Dose: 20 mg Discontinued Medications Hydromorphone HCl (Dilaudid) 0.5 mg IVPUSH ONETIME ONE Stop: 02/11/17 16:49 Last Admin: 02/11/17 17:00 Dose: 0.5 mg Sodium Chloride (Normal Saline) 1,000 mls @ 999 mls/hr IV ASDIRECTED [facility] Last Admin: 02/11/17 15:27 Dose: 999 mls/hr Sodium Chloride (Normal Saline) 1,000 mls @ 999 mls/hr IV ASDIRECTED [facility] Last Admin: 02/11/17 16:32 Dose: 999 mls/hr Sodium Chloride (Normal Saline) 75 mls @ 3.6 mls/sec IV ASDIRECTED STA Stop: 02/11/17 17:02 Last Admin: 02/11/17 17:20 Dose: 3.6 mls/sec Potassium Chloride 20 meq/Lidocaine HCl 2 ml/ Sodium Chloride 112 mls @ 50 mls/ hr IV Q2H GT Stop: 02/12/17 00:29 Last Admin: 02/12/17 04:57 Dose: 50 mls/hr Potassium Chloride (Kcl 20 Meq In Water 100 Ml) Confirm Administered Dose 100 mls @ as directed .ROUTE .STK-MED ONE Stop: 02/11/17 20:26 Last Admin: 02/12/17 08:06 Dose: Not Given Potassium Chloride (Kcl 20 Meq In Water 100 Ml) Confirm Administered Dose 100 mls @ as directed .ROUTE .STK-MED ONE Stop: 02/11/17 23:12 Last Admin: 02/12/17 08:06 Dose: Not Given Influenza Virus Vaccine (Pharmacy To Dose - Influenza Vaccine) 1 each IM ONETIME ONE Stop: 02/11/17 20:51 Influenza Virus Vaccine (Fluzone Quad [id number]) 60 mcg IM .ONCE ONE Stop: 02/12/17 10:01 Last Admin: 02/12/17 10:27 Dose: 60 mcg Iopamidol (Isovue-300 (61%)) 117 ml IV . DIRECTED STA Stop: 02/11/17 17:01 Last Admin: 02/11/17 17:20 Dose: 150 ml Lidocaine HCl (Xylocaine-Mpf 1%) Confirm Administered Dose 5 ml .ROUTE .STK-MED ONE Stop: 02/11/17 20:26 Last Admin: 02/11/17 21:00 Dose: Not Given Lidocaine HCl (Xylocaine-Mpf 1%) Confirm Administered Dose 5 ml .ROUTE .STK-MED ONE Stop: 02/11/17 23:12 Last Admin: 02/11/17 23:22 Dose: 2 ml Lorazepam (Ativan) 0.5 mg IVPUSH ONETIME ONE Stop: 02/11/17 15:08 Last Admin: 02/11/17 15:26 Dose: 0.5 mg Metoclopramide HCl (Reglan) 10 mg IV ONETIME ONE Stop: 02/11/17 16:46 Last Admin: 02/11/17 17:00 Dose: 10 mg Ondansetron HCl (Zofran) 4 mg IVPUSH ONETIME ONE Stop: 02/11/17 15:07 Last Admin: 02/11/17 15:26 Dose: 4 mg Pantoprazole Sodium (Protonix Iv) 40 mg IVPUSH ONETIME ONE Stop: 02/11/17 16:47 Last Admin: 02/11/17 17:00 Dose: 40 mg Pneumococcal Polyvalent Vaccine (Pneumovax 23) 0.5 ml IM .ONCE ONE Stop: 02/12/17 10:46 Last Admin: 02/12/17 10:33 Dose: 0.5 ml *Q Meaningful Use (DIS) - VTE *Q VTE Criteria *Q: - Stroke *Q Stroke Criteria *Q: - AMI *Q AMI Criteria *Q:
== END 2017-02-12 12:37 | disposition home or self-care (01) ==
LOC: JP.ED 14:00 → JP.2SS 18:06 → JP.MS 19:23
PROVIDERS: ADMIT Internal Medicine; ATTEND Internal Medicine
DX: K52.9 Noninfective gastroenteritis and colitis, unspecified (principal); E86.0 Dehydration; E10.621 Type 1 diabetes mellitus with foot ulcer; L97.519 Non-pressure chronic ulcer of other part of right foot with unspecified severity; E10.42 Type 1 diabetes mellitus with diabetic polyneuropathy; Z79.82 Long term (current) use of aspirin; Z79.4 Long term (current) use of insulin; Z79.899 Other long term (current) drug therapy; Z88.8 Allergy status to other drugs, medicaments and biological substances; I10 Essential (primary) hypertension; E78.00 Pure hypercholesterolemia, unspecified
CPT/HCPCS: 36415; 71010; 74177; 80048; 80053; 81001; 82962; 83690; 85025; 85027; 86140; 96361; 96365; 96366; 96375; 96376; 99285; A9270; C9113; G0378; J1170; J2060; J2405; J2765; J3480; J7030; J7040; 90686; 90732; 96374; 99284; G0008; G0009

== ENCOUNTER 2017-03-08 07:37 | Day surgery (SDC) | payer MEDICAID ==
[2017-03-08] MEDS ORDERED: Midazolam 1 MG/ML 2 ML SDV ONE (08:08)
[2017-03-08] MEDS ORDERED: Propofol 200 MG/20 ML SDV ONE ×2 (08:08→08:56)
[2017-03-08] MEDS ORDERED: fentaNYL 100 MCG/2 ML SDV ONE (08:08)
[2017-03-08] MEDS ORDERED: Dextrose 5%-Lactated Ringers 1,000 ML IV SCH (08:15)
[2017-03-08] MEDS ORDERED: Glycopyrrolate 0.2 MG/ML 2 ML SDV IVPUSH ONE (08:45)
[2017-03-08 10:20] VITALS: BP 103/67
--- NOTE | 2017-03-13 09:35 | OR ---
DATE OF PROCEDURE: 03/08/2017 PREOPERATIVE DIAGNOSES: 1. Nausea, vomiting, and epigastric pain. 2. Frequent loose bowel movements and diarrhea. POSTOPERATIVE DIAGNOSES: 1. Very focal mild antral gastritis. 2. Colonoscopy with a single 2 mm rectal polyp. OPERATIVE PROCEDURE: 1. Esophagogastroduodenoscopy with biopsies of antrum for CLOtest (87498). 2. Flexible colonoscopy with:. a. Random colorectal biopsies to rule out microscopic colitis (55300). b. Snare excision of rectal polyp (02546). c. Collection of stool for microbiologic workup. ANESTHESIA: IV sedation. INDICATIONS FOR PROCEDURE: This is a 47-year-old with longstanding type 1 type diabetes, presenting with a combination of nausea, vomiting, and epigastric discomfort, as well as diarrhea or frequent loose bowel movements. The plan is proceed with an upper and lower endoscopy with biopsies as indicated. With regard to lower endoscopy, we would obtain random colorectal biopsies to rule out microscopic colitis, as no other specific pathology is identified. We will plan to obtain stool cultures as well. Potential risks of the procedure including bleeding and perforation were discussed, and the patient wishes to proceed. DETAILS OF PROCEDURE: The patient was taken to the operating room and placed in a left lateral decubitus position. IV sedation was administered, after which the upper GI endoscope was passed orally through the length of the esophagus, into the stomach with retroflexion in the fundus, and thereafter through the pyloric channel and into the proximal duodenum. Findings included normal hypopharynx, larynx, upper esophageal sphincter, and esophageal body. At the EG junction, no significant hiatal hernia or inflammation was noted. Within the stomach, there was a single patch of redness in the pre-pyloric area consistent with some focal mild gastritis. No erosions or ulcers were seen. Pyloric channel and visualized portion of the duodenum were unremarkable, specific negative in this case is lack of any of bezoar or significant retained bile, i.e. the findings would not be suggestive of a diabetic gastroparesis at this point. Biopsies were obtained from the antrum and sent for CLOtest for H. pylori, and minimal bleeding was noted. The scope was then withdrawn and the upper endoscopic procedure concluded. Attention was taken to the colonoscopy. The initial digital rectal exam was performed and was unremarkable. Colonoscope was then passed into the rectum with retroflexion revealing uncomplicated hemorrhoidal columns. The scope was eventually passed to the cecum. The only abnormality noted was a tiny polyp, measuring around 2 mm in the rectum around 10 cm from the dentate line. This was excised by means of snare and two separate pieces of tissue were evident after completion of the standard excision. Hemostasis was satisfactory. During the course of the colonoscopy, otherwise, no additional abnormalities were noted. Specifically, no diverticula, no areas of polyps or other signs of neoplasia, and no regions showing any colitis. During the course of the procedure, stool was collected for microbiologic workup, and then random colorectal biopsies were obtained, beginning at the cecum and throughout the remainder of the colon and rectum to rule out microscopic colitis. After completion of the biopsies and snare, good hemostasis was evident, and the scope was then withdrawn and the procedure then concluded. At this point, we do not have a good explanation for the patient's nausea, vomiting, and epigastric discomfort. This does occur in the postprandial period. We will, therefore, obtain a CCK stimulated HIDA scan. We will see the patient after the HIDA scan has been completed. If the CLOtest happens to become positive, we will notify him and get him started on an anti-H pylori regimen. Given the lack of any retained bile or food within the stomach and no significant inflammation, it is fairly unlikely that the patient has any diabetic gastroparesis. If nothing else comes up in terms of workup, it may be worthwhile, however, to obtain a gastric emptying nuclear medicine study. We will see the patient after the HIDA scan is completed. The patient will be scheduled to see Jeovany Jensen PA-C at [facility] in 7-10 days. Manfred Keating MD /[id number]
== END 2017-03-08 10:45 | disposition home or self-care (01) ==
LOC: JP.SDS 07:37
PROVIDERS: ATTEND Surgery
DX: K62.1 Rectal polyp (principal); K29.70 Gastritis, unspecified, without bleeding; I10 Essential (primary) hypertension; E10.9 Type 1 diabetes mellitus without complications; Z88.8 Allergy status to other drugs, medicaments and biological substances
CPT/HCPCS: 43239; 45380; 45385; 87046; 87077; 87081; 87177; 87209; 87493; 87899; 88305; 89055; J2250; J2704; J3010; J7042; J3490

== ENCOUNTER 2017-03-10 11:10 | Inpatient (IN) | payer MEDICAID ==
[2017-03-10] MEDS ORDERED: Ondansetron 4 MG/2 ML SDV IVPUSH ONE (11:47)
[2017-03-10] MEDS ORDERED: Sodium Chloride 0.9% 1,000 ML IV SCH ×3 (12:00→15:15)
--- NOTE | 2017-03-10 12:05 | EDM.PDOC ---
ED HPI GENERAL MEDICAL PROBLEM - General Chief Complaint: Gastrointestinal Problem Stated Complaint: NAUSEA Time Seen by Provider: 03/10/17 11:30 Source of Information: Reports: Patient History Limitations: Reports: No Limitations - History of Present Illness INITIAL COMMENTS - FREE TEXT/NARRATIVE: 47-year-old male diabetic who had an EGD as well as a colonoscopy 2 days ago, has had persistent nausea and vomiting since that time. Also intermittent stomach cramping. He is not taking any of his medicines or insulin in the last 2 days, has not checked his glucose levels. No fevers or chills. No shortness of breath. Just feels very nauseous and sick. Onset: Gradual (Since his procedures 2 days ago) Severity: Moderate Associated Symptoms: Reports: Loss of Appetite, Malaise, Nausea/Vomiting. Denies: Chest Pain, Cough, Fever/Chills, Shortness of Breath Abdominal Pain Score (Numeric/FACES): 9 - Related Data Allergies Allergy/AdvReac Type Severity Reaction Status Date / Time indomethacin Allergy Confusion Verified 03/10/17 11:28 metformin Allergy Other Verified 03/10/17 11:28 Home Meds: Home Meds Aspirin [Lo-Dose Aspirin EC] 81 mg PO DAILY 08/18/15 [History] Multivitamin [Men's Multi-Vitamin] 1 mg PO DAILY 08/18/15 [History] Insulin Aspart [NovoLOG] 5 unit SUBCUT WITHMEALSANDBED 10/05/15 [History] Insulin Detemir [Levemir] 30 unit SUBCUT BEDTIME 10/05/15 [History] Gabapentin [Neurontin] 300 mg PO TID 03/21/16 [History] Simvastatin [Zocor] 20 mg PO BEDTIME 05/03/16 [History] Ondansetron [Zofran ODT] 4 mg SL Q4H PRN #12 tab.dis 02/12/17 [Rx] Past Medical History HEENT History: Reports: Impaired Vision Cardiovascular History: Reports: High Cholesterol, Hypertension Gastrointestinal History: Reports: Chronic Diarrhea Genitourinary History: Reports: Diabetic Nephropathy Musculoskeletal History: Reports: RA Other Musculoskeletal History: . Neurological History: Reports: Neuropathy, Peripheral Psychiatric History: Reports: Anxiety Endocrine/Metabolic History: Reports: Diabetes, Type I Dermatologic History: Reports: Other (See Below) Other Dermatologic History: diabetic ulcer right foot - Infectious Disease History Infectious Disease History: Reports: Chicken Pox - Past Surgical History Head Surgeries/Procedures: Reports: None HEENT Surgical History: Reports: None Cardiovascular Surgical History: Reports: None GI Surgical History: Reports: None, Colonoscopy, EGD Male Surgical History: Reports: None Endocrine Surgical History: Reports: None Neurological Surgical History: Reports: None Musculoskeletal Surgical History: Reports: Amputation, Shoulder Surgery, Other ( See Below) Other Musculoskeletal Surgeries/Procedures:: 4th, 5th toes of right foot Dermatological Surgical History: Reports: None Social & Family History - Family History Family Medical History: Noncontributory Cardiac: Reports: Cardiomyopathy Other Cardiac Family History: Father Endocrine/Metabolic: Reports: Diabetes, type II Other Endocrine/Metabolic Family History: Grandma - Tobacco Use Smoking Status *Q: Former Smoker Years of Tobacco use: 30 Packs/Tins Daily: 2 Used Tobacco, but Quit: Yes Month Tobacco Last Used: 4 years ago Second Hand Smoke Exposure: No - Caffeine Use Caffeine Use: Reports: Coffee Other Caffeine Use: 2 cups daily - Recreational Drug Use Recreational Drug Use: Yes Drug Use in Last 12 Months: Yes Recreational Drug Type: Reports: Marijuana/Hashish Recreational Drug Use Frequency: Daily Recreational Drug Last Use: 8 hrs ago - Living Situation & Occupation Living situation: Reports: , Alone Occupation: Employed ED ROS GENERAL - Review of Systems Review Of Systems: See Below Constitutional: Reports: Malaise, Weakness. Denies: Fever, Chills HEENT: Denies: Throat Pain Respiratory: Denies: Shortness of Breath Cardiovascular: Denies: Chest Pain GI/Abdominal: Reports: Abdominal Pain (Intermittent cramping), Nausea, Vomiting. Denies: Diarrhea : Reports: No Symptoms Skin: Reports: No Symptoms Neurological: Denies: Headache ED EXAM, GI/ABD - Physical Exam Exam: See Below Exam Limited By: No Limitations General Appearance: Alert, Mild Distress (Looks uncomfortable) Eyes: Bilateral: Normal Appearance (Normal hydration, no jaundice) Throat/Mouth: Normal Inspection (Normal hydration) Head: Atraumatic Respiratory/Chest: No Respiratory Distress, Lungs Clear Cardiovascular: Regular Rate, Rhythm, Tachycardia GI/Abdominal Exam: Normal Bowel Sounds, Tender (Some diffuse tenderness to palpation, no focal tenderness) Neurological: Alert, Oriented Skin Exam: Warm, Dry Course - Vital Signs Last Recorded V/S: Last Vital Signs Temp 98.5 F 03/11/17 07:06 Pulse 98 03/11/17 07:06 Resp 18 03/11/17 07:06 BP 182/102 H 03/11/17 07:24 Pulse Ox 99 03/11/17 07:06 - Orders/Labs/Meds Orders: Active Orders 24 hr Category Date Time Status Abdomen Pelvis w Cont [CT] Stat Exams 03/10/17 16:37 Taken Sodium Chloride 0.9% [Normal Saline] 1,000 ml Med 03/10/17 19:15 Active IV ASDIRECTED Medication Orders Acetaminophen (Tylenol) 650 mg PO Q4H PRN PRN Reason: Pain (Mild 1-3)/fever Albuterol (Proventil Neb Soln) 2.5 mg NEB Q4H PRN PRN Reason: Shortness Of Breath/wheezing Aspirin (Halfprin) 81 mg PO DAILY [facility] Gabapentin (Neurontin) 300 mg PO TID [facility] Last Admin: 03/10/17 21:22 Dose: 300 mg Hydromorphone HCl (Dilaudid) 1 mg IVPUSH Q2H PRN PRN Reason: Abdominal Pain Sodium Chloride (Normal Saline) 1,000 mls @ 150 mls/hr IV ASDIRECTED [facility] Last Admin: 03/11/17 02:55 Dose: 150 mls/hr Infusion: 03/11/17 02:55 Dose: 150 mls/hr Admin: 03/10/17 20:24 Dose: 150 mls/hr Insulin Aspart (Novolog) 0 unit SUBCUT QIDACANDBED [facility] PRN Reason: Protocol Last Admin: 03/10/17 21:20 Dose: 1 unit Insulin Aspart (Novolog) 5 unit SUBCUT WITHMEALSANDBED [facility] Last Admin: 03/10/17 21:22 Dose: 5 units Insulin Detemir (Levemir) 30 unit SUBCUT BEDTIME [facility] Last Admin: 03/10/17 21:21 Dose: 30 units Lorazepam (Ativan) 1 mg IV Q6H PRN PRN Reason: Nausea/Vomiting Last Admin: 03/11/17 06:14 Dose: 1 mg Admin: 03/11/17 00:14 Dose: 1 mg Multivitamins/Minerals (Thera M Plus) 1 tab PO DAILY [facility] Ondansetron HCl (Zofran Odt) 4 mg PO Q6H PRN PRN Reason: Nausea able to take PO Last Admin: 03/11/17 07:02 Dose: 4 mg Admin: 03/10/17 23:07 Dose: 4 mg Oxycodone HCl (Oxycodone) 5 mg PO Q4H PRN PRN Reason: Pain (moderate 4-6) Last Admin: 03/11/17 06:14 Dose: 5 mg Pantoprazole Sodium (Protonix Iv) 40 mg IVPUSH ACBREAKFAST GT Simvastatin (Zocor) 20 mg PO BEDTIME [facility] Last Admin: 03/10/17 21:22 Dose: 20 mg Zolpidem Tartrate (Ambien) 5 mg PO BEDTIME GT Last Admin: 03/10/17 21:21 Dose: 5 mg Labs: Laboratory Tests 03/10/17 03/10/17 03/10/17 Range/Units 11:55 11:55 14:04 WBC 18.8 H (4.5-11.0) K/uL RBC 5.05 (4.30-5.90) M/uL Hgb 14.8 D (12.0-15.0) g/dL Hct 43.0 (40.0-54.0) % MCV 85 (80-98) fL MCH 29 (27-31) pg MCHC 34 (32-36) % Plt Count 305 (150-400) K/uL Neut % (Auto) 87 H (36-66) % Lymph % (Auto) 7 L (24-44) % [place] % (Auto) 6 (2-6) % Eos % (Auto) 0 L (2-4) % Baso % (Auto) 0 (0-1) % Puncture Site Rt.radial ABG pH 7.477 H (7.350-7.450) ABG pCO2 31.3 L (35.0-42.0) mmHg ABG pO2 97.5 (75.0-100.0) mmHg ABG HCO3 22.9 (22.0-26.0) mmol/L ABG Total CO2 20.0 L (23.0-27.0) mmol/L ABG O2 Saturation 98.1 H (95.0-98.0) % ABG O2 Content 18.3 (15.0-23.0) %vol ABG Base Excess 0.5 mm/L ABG Hemoglobin 13.5 (13.5-18.0) g/dL ABG Oxyhemoglobin 95.6 % ABG Carboxyhemoglobin 1.9 H (0.0-1.6) % ABG Methemoglobin 0.6 % Marlon Test Passed O2 Delivery Device Room air Sodium 140 (140-148) mmol/L Potassium 4.2 (3.6-5.2) mmol/L Chloride 99 L (100-108) mmol/L Carbon Dioxide 24 (21-32) mmol/L Anion Gap 21.2 H (5.0-14.0) mmol/L BUN 13 (7-18) mg/dL Creatinine 1.4 H (0.8-1.3) mg/dL Est Cr Clr Drug Dosing 64.53 mL/min Estimated GFR (MDRD) 54 L (>60) Glucose 218 H (74-106) mg/dL Lactic Acid (0.4-2.0) mmol/L Calcium 9.6 (8.5-10.1) mg/dL Total Bilirubin 0.8 (0.2-1.0) mg/dL AST 15 (15-37) U/L ALT 14 (12-78) U/L Alkaline Phosphatase 80 (46-116) U/L Total Protein 7.8 (6.4-8.2) g/dL Albumin 4.0 (3.4-5.0) g/dL Globulin 3.8 H (2.3-3.5) g/dL Albumin/Globulin Ratio 1.1 L (1.2-2.2) Amylase 43 (25-115) U/L Lipase 50 L (73-393) U/L Urine Color Urine Appearance Urine pH (4.5-8.0) Ur Specific [place] (1.008-1.030) Urine Protein (NEGATIVE) mg/dL Urine Glucose (UA) (NEGATIVE) mg/dL Urine Ketones (NEGATIVE) mg/dL Urine Occult Blood (NEGATIVE) Urine Nitrite (NEGAITVE) Urine Bilirubin (NEGATIVE) Urine Urobilinogen (NORMAL) mg/dL Ur Leukocyte Esterase (NEGATIVE) Urine RBC (0-5) Urine WBC (0-5) Ur Epithelial Cells Amorphous Sediment Urine Bacteria Urine Mucus Urine Opiates Screen (NEGATIVE) Ur Oxycodone Screen (NEGATIVE) Urine Methadone Screen (NEGATIVE) Ur Propoxyphene Screen (NEGATIVE) Ur Barbiturates Screen (NEGATIVE) Ur Tricyclics Screen (NEGATIVE) Ur Phencyclidine Scrn (NEGATIVE) Ur Amphetamine Screen (NEGATIVE) U Methamphetamines Scrn (NEGATIVE) Urine MDMA Screen (NEGATIVE) U Benzodiazepines Scrn (NEGATIVE) U Cocaine Metab Screen (NEGATIVE) U Marijuana (THC) Screen (NEGATIVE) 03/10/17 03/10/17 03/10/17 Range/Units 14:34 14:34 19:15 WBC (4.5-11.0) K/uL RBC (4.30-5.90) M/uL Hgb (12.0-15.0) g/dL Hct (40.0-54.0) % MCV (80-98) fL MCH (27-31) pg MCHC (32-36) % Plt Count (150-400) K/uL Neut % (Auto) (36-66) % Lymph % (Auto) (24-44) % [place] % (Auto) (2-6) % Eos % (Auto) (2-4) % Baso % (Auto) (0-1) % Puncture Site ABG pH (7.350-7.450) ABG pCO2 (35.0-42.0) mmHg ABG pO2 (75.0-100.0) mmHg ABG HCO3 (22.0-26.0) mmol/L ABG Total CO2 (23.0-27.0) mmol/L ABG O2 Saturation (95.0-98.0) % ABG O2 Content (15.0-23.0) %vol ABG Base Excess mm/L ABG Hemoglobin (13.5-18.0) g/dL ABG Oxyhemoglobin % ABG Carboxyhemoglobin (0.0-1.6) % ABG Methemoglobin % Marlon Test O2 Delivery Device Sodium (140-148) mmol/L Potassium (3.6-5.2) mmol/L Chloride (100-108) mmol/L Carbon Dioxide (21-32) mmol/L Anion Gap (5.0-14.0) mmol/L BUN (7-18) mg/dL Creatinine (0.8-1.3) mg/dL Est Cr Clr Drug Dosing mL/min Estimated GFR (MDRD) (>60) Glucose (74-106) mg/dL Lactic Acid 4.7 H (0.4-2.0) mmol/L Calcium (8.5-10.1) mg/dL Total Bilirubin (0.2-1.0) mg/dL AST (15-37) U/L ALT (12-78) U/L Alkaline Phosphatase (46-116) U/L Total Protein (6.4-8.2) g/dL Albumin (3.4-5.0) g/dL Globulin (2.3-3.5) g/dL Albumin/Globulin Ratio (1.2-2.2) Amylase (25-115) U/L Lipase (73-393) U/L Urine Color Yellow Urine Appearance Clear Urine pH 7.0 (4.5-8.0) Ur Specific [place] 1.010 (1.008-1.030) Urine Protein Trace (NEGATIVE) mg/dL Urine Glucose (UA) 250 H (NEGATIVE) mg/dL Urine Ketones 50 H (NEGATIVE) mg/dL Urine Occult Blood Negative (NEGATIVE) Urine Nitrite Negative (NEGAITVE) Urine Bilirubin Negative (NEGATIVE) Urine Urobilinogen Normal (NORMAL) mg/dL Ur Leukocyte Esterase Negative (NEGATIVE) Urine RBC 0-5 (0-5) Urine WBC 0-5 (0-5) Ur Epithelial Cells Rare Amorphous Sediment Not seen Urine Bacteria Few Urine Mucus Not seen Urine Opiates Screen Negative (NEGATIVE) Ur Oxycodone Screen Negative (NEGATIVE) Urine Methadone Screen Negative (NEGATIVE) Ur Propoxyphene Screen Negative (NEGATIVE) Ur Barbiturates Screen Negative (NEGATIVE) Ur Tricyclics Screen Negative (NEGATIVE) Ur Phencyclidine Scrn Negative (NEGATIVE) Ur Amphetamine Screen Negative (NEGATIVE) U Methamphetamines Scrn Negative (NEGATIVE) Urine MDMA Screen Negative (NEGATIVE) U Benzodiazepines Scrn Negative (NEGATIVE) U Cocaine Metab Screen Negative (NEGATIVE) U Marijuana (THC) Screen Positive H (NEGATIVE) Meds: Medications Generic Name Dose Route Start Last Admin Trade Name Freq PRN Reason Stop Dose Admin Acetaminophen 650 mg 03/10/17 20:09 Tylenol PO Q4H PRN Pain (Mild 1-3)/fever Albuterol 2.5 mg 03/10/17 20:09 Proventil Neb Soln NEB Q4H PRN Shortness Of Breath/wheezing Aspirin 81 mg 03/11/17 09:00 Halfprin PO DAILY [facility] Gabapentin 300 mg 03/10/17 21:00 03/10/17 21:22 Neurontin PO 300 mg TID [facility] Administration Hydromorphone HCl 1 mg 03/10/17 20:09 Dilaudid IVPUSH Q2H PRN Abdominal Pain Sodium Chloride 1,000 mls @ 150 mls/hr 03/10/17 19:15 03/11/17 02:55 Normal Saline IV 150 mls/hr ASDIRECTED [facility] Administration Insulin Aspart 0 unit 03/10/17 20:09 03/10/17 21:20 Novolog SUBCUT 1 unit QIDACANDBED [facility] Administration Protocol Insulin Aspart 5 unit 03/10/17 21:00 03/10/17 21:22 Novolog SUBCUT 5 units WITHMEALSANDBED [facility] Administration Insulin Detemir 30 unit 03/10/17 21:00 03/10/17 21:21 Levemir SUBCUT 30 units BEDTIME [facility] Administration Lorazepam 1 mg 03/10/17 20:09 03/11/17 06:14 Ativan IV 1 mg Q6H PRN Administration Nausea/Vomiting Multivitamins/Minerals 1 tab 03/11/17 09:00 Thera M Plus PO DAILY [facility] Ondansetron HCl 4 mg 03/10/17 20:09 03/11/17 07:02 Zofran Odt PO 4 mg Q6H PRN Administration Nausea able to take PO Oxycodone HCl 5 mg 03/10/17 20:09 03/11/17 06:14 Oxycodone PO 5 mg Q4H PRN Administration Pain (moderate 4-6) Pantoprazole Sodium 40 mg 03/11/17 07:30 Protonix Iv IVPUSH ACBREAKFAST [facility] Simvastatin 20 mg 03/10/17 21:00 03/10/17 21:22 Zocor PO 20 mg BEDTIME [facility] Administration Zolpidem Tartrate 5 mg 03/10/17 21:00 03/10/17 21:21 Ambien PO 5 mg BEDTIME [facility] Administration Discontinued Medications Generic Name Dose Route Start Last Admin Trade Name Freq PRN Reason Stop Dose Admin Al Hydroxide/Mg Hydroxide 30 ml 03/10/17 13:36 03/10/17 13:40 Mag-Al Plus PO 03/10/17 13:37 30 ml ONETIME ONE Administration Hydromorphone HCl 0.5 mg 03/10/17 12:37 03/10/17 12:42 Dilaudid IVPUSH 03/10/17 12:38 0.5 mg ONETIME ONE Administration Hydromorphone HCl 1 mg 03/10/17 15:28 03/10/17 15:37 Dilaudid IVPUSH 03/10/17 15:29 1 mg ONETIME ONE Administration Sodium Chloride 1,000 mls @ 1,000 mls/hr 03/10/17 12:00 03/10/17 12:03 Normal Saline IV 1,000 mls/hr ASDIRECTED [facility] Administration Sodium Chloride 1,000 mls @ 1,000 mls/hr 03/10/17 13:00 03/10/17 13:09 Normal Saline IV 1,000 mls/hr ASDIRECTED [facility] Administration Sodium Chloride 1,000 mls @ 500 mls/hr 03/10/17 15:15 03/10/17 17:13 Normal Saline IV 500 mls/hr ASDIRECTED [facility] Administration Sodium Chloride 80 mls @ 3 mls/sec 03/10/17 17:00 03/10/17 17:07 Normal Saline IV 3 mls/sec ASDIRECTED [facility] Administration Iopamidol 100 ml 03/10/17 17:00 03/10/17 17:07 Isovue-300 (61%) IV 100 ml . DIRECTED [facility] Administration Lorazepam 1 mg 03/10/17 19:09 03/10/17 19:25 Ativan IVPUSH 03/10/17 19:10 1 mg ONETIME ONE Administration Ondansetron HCl 4 mg 03/10/17 11:47 03/10/17 12:06 Zofran IVPUSH 03/10/17 11:48 4 mg ONETIME ONE Administration Sodium Chloride 10 ml 03/10/17 16:52 03/10/17 17:07 Saline Flush FLUSH 10 ml ASDIRECTED PRN Administration Keep Vein Open - Re-Assessments/Exams Free Text/Narrative Re-Assessment/Exam: 03/10/17 12:04 Patient will be hydrated with normal saline, CBC, CMP, amylase lipase and blood gases on room air will be obtained. He's also given 4 mg of IV Zofran. 03/10/17 18:30 White count was 18,000, CMP was reassuring, amylase and lipase normal. Patient was given 2 L of normal saline and 2 doses of Dilaudid for ongoing abdominal cramping. We were having difficulty controlling his symptoms so a CT scan of the abdomen was done with IV contrast which did not show any acute findings but he did have a fairly distended bladder. We had him urinate 350 mL of urine, bladder scan indicated still 750 mL so this was removed with a straight catheterization. It did not significantly help his symptoms, he still had an emesis just after getting back from CT scan. He did not feel he was well enough to go home even though we could not find any significant illness such as ketoacidosis. He likely has gastroenteritis, possibly gastroparesis with the chronicity of the symptoms. Melissa Nicole of the hospitalist service will visit with the patient and admit him for symptom control and he can be reevaluated tomorrow. Departure - Departure Time of Disposition: 20:08 Disposition: Admitted As Inpatient 65 Condition: Fair Clinical Impression: Abdominal pain, Gastroenteritis - Discharge Information - My Orders Last 24 Hours: My Active Orders 03/10/17 16:37 Abdomen Pelvis w Cont [CT] Stat - Assessment/Plan Last 24 Hours: My Active Orders 03/10/17 16:37 Abdomen Pelvis w Cont [CT] Stat
[2017-03-10] MEDS ORDERED: HYDROmorphone 0.5 MG/0.5 ML Syringe IVPUSH ONE (12:37)
[2017-03-10] MEDS ORDERED: Aluminum Hydroxide/Magnesium Hydroxide/Simethicone Susp 30 ML Cup PO ONE (13:36)
[2017-03-10] MEDS ORDERED: HYDROmorphone 1 MG/ML Syringe IVPUSH ONE (15:28)
[2017-03-10] MEDS ORDERED: Sodium Chloride 0.9% 10 ML Syringe FLUSH PRN (16:52)
[2017-03-10] MEDS ORDERED: Sodium Chloride 0.9% 80 ML IV SCH (17:00)
[2017-03-10] MEDS ORDERED: Iopamidol 612 MG/ML 100 ML Bottle IV SCH (17:00)
[2017-03-10] MEDS ORDERED: LORazepam 2 MG/ML SDV IVPUSH ONE (19:09)
--- NOTE | 2017-03-10 20:03 | PCM.HP ---
H&P History of Present Illness - General Date of Service: 03/10/17 Admit Problem/Dx: Admission Diagnosis/Problem Admission Diagnosis/Problem Gastroenteritis Source of Information: Patient, Provider History Limitations: Reports: No Limitations - History of Present Illness Initial Comments - Free Text/Narative: 47-year-old male diabetic who had an EGD as well as a colonoscopy 2 days ago, has had persistent nausea and vomiting since that time. Also intermittent stomach cramping. He is not taking any of his medicines or insulin in the last 2 days, has not checked his glucose levels. No fevers or chills. No shortness of breath. Just feels very nauseous and sick. Onset: Gradual (Since his procedures 2 days ago) Severity: Moderate Associated Symptoms: Reports: Loss of Appetite, Malaise, Nausea/Vomiting. Denies: Chest Pain, Cough, Fever/Chills, Shortness of Breath Abdominal Pain Score (Numeric/FACES): 9 03/10/17 12:04 Patient will be hydrated with normal saline, CBC, CMP, amylase lipase and blood gases on room air will be obtained. He's also given 4 mg of IV Zofran. 03/10/17 18:30 White count was 18,000, CMP was reassuring, amylase and lipase normal. Patient was given 2 L of normal saline and 2 doses of Dilaudid for ongoing abdominal cramping. We were having difficulty controlling his symptoms so a CT scan of the abdomen was done with IV contrast which did not show any acute findings but he did have a fairly distended bladder. We had him urinate 350 mL of urine, bladder scan indicated still 750 mL so this was removed with a straight catheterization. It did not significantly help his symptoms, he still had an emesis just after getting back from CT scan. He did not feel he was well enough to go home even though we could not find any significant illness such as ketoacidosis. He likely has gastroenteritis, possibly gastroparesis with the chronicity of the symptoms. Melissa Begum of the hospitalist service will visit with the patient and admit him for symptom control and he can be reevaluated tomorrow. Onset of Symptoms: Reports: Gradual Symptom Onset Date: 03/08/17 Duration of Symptoms: Reports: Day(s):, Waxing/Waning Location: Reports: Abdomen, Generalized (bodyaches) Quality: Reports: Sharp, Stabbing, Throbbing Severity: Moderate Improves with: Reports: None Worsens with: Reports: Eating Associated Symptoms: Reports: Fever/Chills, Loss of Appetite, Nausea/Vomiting, Shortness of Breath, Weakness Abdominal Pain Score (Numeric/FACES): 9 - Related Data Allergies/Adverse Reactions: Allergies Allergy/AdvReac Type Severity Reaction Status Date / Time indomethacin Allergy Confusion Verified 03/10/17 11:28 metformin Allergy Other Verified 03/10/17 11:28 Home Medications: Home Meds Aspirin [Lo-Dose Aspirin EC] 81 mg PO DAILY 08/18/15 [History] Multivitamin [Men's Multi-Vitamin] 1 mg PO DAILY 08/18/15 [History] Insulin Aspart [NovoLOG] 5 unit SUBCUT WITHMEALSANDBED 10/05/15 [History] Insulin Detemir [Levemir] 30 unit SUBCUT BEDTIME 10/05/15 [History] Gabapentin [Neurontin] 300 mg PO TID 03/21/16 [History] Simvastatin [Zocor] 20 mg PO BEDTIME 05/03/16 [History] Ondansetron [Zofran ODT] 4 mg SL Q4H PRN #12 tab.dis 02/12/17 [Rx] Past Medical History HEENT History: Reports: Impaired Vision Cardiovascular History: Reports: High Cholesterol, Hypertension Gastrointestinal History: Reports: Chronic Diarrhea Genitourinary History: Reports: Diabetic Nephropathy Musculoskeletal History: Reports: RA Other Musculoskeletal History: . Neurological History: Reports: Neuropathy, Peripheral Psychiatric History: Reports: Anxiety Endocrine/Metabolic History: Reports: Diabetes, Type I Dermatologic History: Reports: Other (See Below) Other Dermatologic History: diabetic ulcer right foot - Infectious Disease History Infectious Disease History: Reports: Chicken Pox - Past Surgical History Head Surgeries/Procedures: Reports: None HEENT Surgical History: Reports: None Cardiovascular Surgical History: Reports: None GI Surgical History: Reports: None, Colonoscopy, EGD Male Surgical History: Reports: None Endocrine Surgical History: Reports: None Neurological Surgical History: Reports: None Musculoskeletal Surgical History: Reports: Amputation, Shoulder Surgery, Other ( See Below) Other Musculoskeletal Surgeries/Procedures:: 4th, 5th toes of right foot Dermatological Surgical History: Reports: None Social & Family History - Family History Family Medical History: Noncontributory Cardiac: Reports: Cardiomyopathy Other Cardiac Family History: Father Endocrine/Metabolic: Reports: Diabetes, type II Other Endocrine/Metabolic Family History: Grandma - Tobacco Use Smoking Status *Q: Former Smoker Years of Tobacco use: 30 Packs/Tins Daily: 2 Used Tobacco, but Quit: Yes Month Tobacco Last Used: 4 years ago Second Hand Smoke Exposure: No - Caffeine Use Caffeine Use: Reports: Coffee Other Caffeine Use: 2 cups daily - Recreational Drug Use Recreational Drug Use: Yes Drug Use in Last 12 Months: Yes Recreational Drug Type: Reports: Marijuana/Hashish Recreational Drug Use Frequency: Daily Recreational Drug Last Use: 8 hrs ago - Living Situation & Occupation Living situation: Reports: , Alone Occupation: Employed H&P Review of Systems - Review of Systems: Review Of Systems: See Below General: Reports: Chills, Weakness, Fatigue, Decreased Appetite, Weight Loss, Other (Diabetes Mellitus Type 1 for 20 + years) HEENT: Reports: Glasses Pulmonary: Reports: Shortness of Breath (intermittent, not experiencing sob at this time) Cardiovascular: Reports: No Symptoms Gastrointestinal: Reports: Abdominal Pain (painful abdominal spasm with nausea and vomiting. sharp stabbing pains), Diarrhea (2 times a day for the past 2 days. denies any black or bloody stools.), Decreased Appetite (unable to eat for the past 2 days.), Nausea, Vomiting Genitourinary: Reports: No Symptoms Musculoskeletal: Reports: Muscle Pain (generalized muscle pain) Skin: Reports: Wound (diabetic foot ulcer for month, followed by [facility], appointment this Sunday.) Psychiatric: Reports: No Symptoms Neurological: Reports: No Symptoms Hematologic/Lymphatic: Reports: No Symptoms Immunologic: Reports: No Symptoms Exam - Exam Exam: See Below - Vital Signs Vital Signs: Last Vital Signs Temp 36.9 C 03/10/17 17:19 Pulse 104 H 03/10/17 17:19 Resp 16 03/10/17 17:19 BP 189/106 H 03/10/17 17:19 Pulse Ox 97 03/10/17 17:19 Weight: 78.3 kg - Exam Quality Assessment: Skin Breakdown (right foot with diabetic ulcer.) General: Alert, Oriented, Cooperative, Mild Distress HEENT: PERRLA, Conjunctiva Clear, EACs Clear, EOMI, Hearing Intact, Pupils Equal , Pupils Reactive, TMs Clear, Other (mouth dry.) Neck: Supple, Trachea Midline Lungs: Clear to Auscultation, Normal Respiratory Effort Cardiovascular: Regular Rate, Regular Rhythm, Normal S1, Normal S2, Tachycardia GI/Abdominal Exam: Normal Bowel Sounds, Soft, Tender (generalized tenderness to palpation) (Male) Exam: Deferred Rectal (Males) Exam: Deferred Back Exam: Normal Inspection, Full Range of Motion Extremities: Other (diabetic foot ulcer to sole of foot, dry, red, boggy,+ foul odor present.) Skin: Warm, Dry, Decubitis (right foot) Neurological: Strength Equal Bilateral Neuro Extensive - Mental Status: Alert, Oriented x3, Normal Mood/Affect, Normal Cognition, Memory Intact Neuro Extensive - Motor, Sensory, Reflexes: Normal Reflexes Psychiatric: Alert, Normal Affect, Normal Mood - Patient Data Result Diagrams: 03/10/17 11:55 03/10/17 11:55 *Q Meaningful Use (ADM) - VTE *Q VTE Criteria *Q: - Stroke *Q Stroke Criteria *Q: - AMI *Q AMI Criteria *Q: - Problem List (1) Abdominal pain SNOMED Code(s): 20168529 Status: Acute Priority: High Current Visit: Yes (2) Gastroenteritis SNOMED Code(s): 84976205 ICD Code: K52.9 - NONINFECTIVE GASTROENTERITIS AND COLITIS, UNSPECIFIED Status: Acute Priority: High Current Visit: Yes (3) Dehydration SNOMED Code(s): 26394455 ICD Code: E86.0 - DEHYDRATION Status: Acute Priority: High Current Visit: Yes (4) Type 1 diabetes mellitus SNOMED Code(s): 39462487 ICD Code: E10.9 - TYPE 1 DIABETES MELLITUS WITHOUT COMPLICATIONS Status: Acute Priority: High Current Visit: Yes Qualifiers: Diabetes mellitus complication status: with neurologic complications Diabetes mellitus complication detail: with polyneuropathy Qualified Code(s): E10.42 - Type 1 diabetes mellitus with diabetic polyneuropathy (5) Benign essential hypertension SNOMED Code(s): 4226596 ICD Code: I10 - ESSENTIAL (PRIMARY) HYPERTENSION Status: Chronic Priority : Medium Current Visit: No (6) Foot ulcer due to secondary DM SNOMED Code(s): 2790925 ICD Code: E13.621 - OTHER SPECIFIED DIABETES MELLITUS WITH FOOT ULCER; L97.509 - NON-PRESSURE CHRONIC ULCER OTH PRT UNSP FOOT W UNSP SEVERITY Status : Chronic Priority: Medium Current Visit: No Problem List Initiated/Reviewed/Updated: Yes Orders Last 24hrs: Active Orders 24 hr Category Date Time Status Resuscitation Status Routine Resus Stat 03/10/17 19:19 Ordered Medication Orders Sodium Chloride (Normal Saline) 1,000 mls @ 1,000 mls/hr IV ASDIRECTED [facility] Last Admin: 03/10/17 12:03 Dose: 1,000 mls/hr Sodium Chloride (Normal Saline) 1,000 mls @ 1,000 mls/hr IV ASDIRECTED [facility] Last Admin: 03/10/17 13:09 Dose: 1,000 mls/hr Sodium Chloride (Normal Saline) 1,000 mls @ 500 mls/hr IV ASDIRECTED [facility] Last Admin: 03/10/17 17:13 Dose: 500 mls/hr Sodium Chloride (Normal Saline) 80 mls @ 3 mls/sec IV ASDIRECTED [facility] Last Admin: 03/10/17 17:07 Dose: 3 mls/sec Sodium Chloride (Normal Saline) 1,000 mls @ 150 mls/hr IV ASDIRECTED [facility] Iopamidol (Isovue-300 (61%)) 100 ml IV . DIRECTED [facility] Last Admin: 03/10/17 17:07 Dose: 100 ml Sodium Chloride (Saline Flush) 10 ml FLUSH ASDIRECTED PRN PRN Reason: Keep Vein Open Last Admin: 03/10/17 17:07 Dose: 10 ml Assessment/Plan Comment:: Admission Template ASSESSMENT / PLAN -This is 47 year old male present to ER with complaints of uncontrollable vomiting starting two days ago after colonscopy and EGD. He is unable to tolerated fluids or solid for the past two day. This is further complicated by Diabetes Type 1, which he hasn't take his insulin for the past two day. He had a complete workup with CT abdomen pelvis. He will be admitted for IV fluids, anti-emetics and pain control. Plan Gastroenteritis, abdominal pain, dehydration -Admit to [address] [place] [address] for further monitoring -IV Fluids for rehydration NS at 150 mL per hour -IV Zofran or Ativann to controll symptoms -IV and PO medications for pain control -Advise to notify nurses of any chest pain or other symptoms -And a.m. labs: CBC, BMP Diabetes Type 1 -Insulin Levemir 30 units at bedtime -Insulin Novolog 5 units with meals -low dose sliding scale coverage -blood glucose PCO before meals and at bedtimes. Foot Ulcer due to secondary Diabetes Type 1 -has appointment with Dr. Macario on 03-13-2017 Maintenance issues -Orders home meds: -Nutrition: diabetic diet; soft -Santo catheter not indicated at this time -DVT: ambulate -PPI: IV Protonix 40mg daily CODE STATUS: FULL CODE Admission status: Admit to [address] [place] [address] Admission justification. This patient will be admitted for inpatient services and is medically appropriate meeting medical necessity for inpatient admission as outlined in my documentation. I reasonably expect the patient will require inpatient services that span. Time over 2 midnights. I reasonably expect this patient to be discharged or transferred within 96 hours after admission to the [facility]. Disposition; home Primary care provider: Jeovany Jensen Hospitalist: Dr. Hilton
[2017-03-10] MEDS ORDERED: Albuterol 0.083% 2.5 MG/3 ML Neb Soln NEB PRN (20:09)
[2017-03-10] MEDS ORDERED: Acetaminophen 325 MG Tab PO PRN (20:09)
[2017-03-10] MEDS: Sodium Chloride 0.9% 1,000 ML IV SCH (20:24)
[2017-03-10] MEDS: Insulin Aspart 100 Units/ML 3 ML Pen SUBCUT SCH ×2 (21:20→21:22)
[2017-03-10] MEDS: Insulin Detemir 100 Units/ML 3 ML Pen SUBCUT SCH (21:21)
[2017-03-10] MEDS: Zolpidem 5 MG Tab PO SCH (21:21)
[2017-03-10] MEDS: Simvastatin 20 MG Tab PO SCH (21:22)
[2017-03-10] MEDS: Gabapentin 300 MG Cap PO SCH (21:22)
[2017-03-10] MEDS: Ondansetron 4 MG Tab.DIS PO PRN (23:07)
[2017-03-11] MEDS: LORazepam 2 MG/ML SDV IV PRN ×3 (00:14→12:52)
[2017-03-11] MEDS: Sodium Chloride 0.9% 1,000 ML IV SCH ×3 (02:55→22:52)
[2017-03-11] MEDS: oxyCODONE 5 MG Tab PO PRN ×2 (06:14→13:58)
[2017-03-11] MEDS: Ondansetron 4 MG Tab.DIS PO PRN (07:02)
[2017-03-11] MEDS: Insulin Aspart 100 Units/ML 3 ML Pen SUBCUT SCH ×8 (07:51→21:54)
[2017-03-11] MEDS: Pantoprazole 40 MG Vial IVPUSH SCH (08:54)
[2017-03-11] MEDS: Aspirin 81 MG Tab.EC PO SCH (10:01)
[2017-03-11] MEDS: Multivitamins with Iron/Calcium/Folic Acid/Minerals Tab PO SCH (10:01)
[2017-03-11] MEDS: Gabapentin 300 MG Cap PO SCH ×3 (10:01→21:53)
[2017-03-11] MEDS: HYDROmorphone 1 MG/ML Syringe IVPUSH PRN (11:04)
[2017-03-11] MEDS ORDERED: Potassium Chloride 20 MEQ Tab.ER PO ONE (11:30)
--- NOTE | 2017-03-11 12:54 | PCM.PN ---
- General Info Date of Service: 03/11/17 Functional Status: Denies: Pain Controlled, Tolerating Diet - Review of Systems Gastrointestinal: Reports: Abdominal Pain, Nausea, Vomiting Systems Review Comment:: No acute events overnight but patient has had persistent nausea and intermittent vomiting despite hydration and medications. He has not had any fevers. White blood cell count is a little better. Still having moderate epigastric pain and has not been able to keep anything down since anything he eats comes right back up. No complaints of foot pain in the area of his chronic surgical wound. - Patient Data Vitals - Most Recent: Last Vital Signs Temp 36.9 C 03/11/17 11:11 Pulse 97 03/11/17 11:11 Resp 16 03/11/17 11:11 BP 153/83 H 03/11/17 11:11 Pulse Ox 95 03/11/17 11:11 Weight - Most Recent: 78.3 kg I&O - Last 24 Hours: Intake & Output 03/10/17 03/11/17 03/11/17 22:59 06:59 14:59 Intake Total 120 Output Total 100 100 Balance -100 20 Lab Results Last 24 Hours: Laboratory Results - last 24 hr 03/11/17 03/11/17 Range/Units 04:45 04:45 WBC 16.9 H (4.5-11.0) K/uL RBC 4.42 (4.30-5.90) M/uL Hgb 12.7 D (12.0-15.0) g/dL Hct 38.0 L (40.0-54.0) % MCV 86 (80-98) fL MCH 29 (27-31) pg MCHC 33 (32-36) % Plt Count 251 (150-400) K/uL Neut % (Auto) 76 H (36-66) % Lymph % (Auto) 15 L (24-44) % Hyde % (Auto) 10 H (2-6) % Eos % (Auto) 0 L (2-4) % Baso % (Auto) 0 (0-1) % Sodium 141 (140-148) mmol/L Potassium 3.5 L (3.6-5.2) mmol/L Chloride 105 (100-108) mmol/L Carbon Dioxide 28 (21-32) mmol/L Anion Gap 11.5 (5.0-14.0) mmol/L BUN 12 (7-18) mg/dL Creatinine 0.9 (0.8-1.3) mg/dL Est Cr Clr Drug Dosing 100.38 mL/min Estimated GFR (MDRD) > 60 (>60) Glucose 86 (74-106) mg/dL Calcium 8.5 (8.5-10.1) mg/dL Med Orders - Current: Current Medications Acetaminophen (Tylenol) 650 mg PO Q4H PRN PRN Reason: Pain (Mild 1-3)/fever Albuterol (Proventil Neb Soln) 2.5 mg NEB Q4H PRN PRN Reason: Shortness Of Breath/wheezing Aspirin (Halfprin) 81 mg PO DAILY [facility] Last Admin: 03/11/17 10:01 Dose: Not Given Gabapentin (Neurontin) 300 mg PO TID [facility] Last Admin: 03/11/17 10:01 Dose: Not Given Hydromorphone HCl (Dilaudid) 1 mg IVPUSH Q2H PRN PRN Reason: Abdominal Pain Last Admin: 03/11/17 11:04 Dose: 1 mg Sodium Chloride (Normal Saline) 1,000 mls @ 150 mls/hr IV ASDIRECTED [facility] Last Admin: 03/11/17 12:12 Dose: 150 mls/hr Insulin Aspart (Novolog) 0 unit SUBCUT QIDACANDBED [facility] PRN Reason: Protocol Last Admin: 03/11/17 11:24 Dose: Not Given Insulin Detemir (Levemir) 30 unit SUBCUT BEDTIME [facility] Last Admin: 03/10/17 21:21 Dose: 30 units Lorazepam (Ativan) 1 mg IV Q6H PRN PRN Reason: Nausea/Vomiting Last Admin: 03/11/17 12:52 Dose: 1 mg Multivitamins/Minerals (Thera M Plus) 1 tab PO DAILY [facility] Last Admin: 03/11/17 10:01 Dose: Not Given Ondansetron HCl (Zofran Odt) 4 mg PO Q6H PRN PRN Reason: Nausea able to take PO Last Admin: 03/11/17 07:02 Dose: 4 mg Oxycodone HCl (Oxycodone) 5 mg PO Q4H PRN PRN Reason: Pain (moderate 4-6) Last Admin: 03/11/17 06:14 Dose: 5 mg Pantoprazole Sodium (Protonix Iv) 40 mg IVPUSH ACBREAKFAST [facility] Last Admin: 03/11/17 08:54 Dose: 40 mg Simvastatin (Zocor) 20 mg PO BEDTIME [facility] Last Admin: 03/10/17 21:22 Dose: 20 mg Zolpidem Tartrate (Ambien) 5 mg PO BEDTIME [facility] Last Admin: 03/10/17 21:21 Dose: 5 mg Discontinued Medications Al Hydroxide/Mg Hydroxide (Mag-Al Plus) 30 ml PO ONETIME ONE Stop: 03/10/17 13:37 Last Admin: 03/10/17 13:40 Dose: 30 ml Hydromorphone HCl (Dilaudid) 0.5 mg IVPUSH ONETIME ONE Stop: 03/10/17 12:38 Last Admin: 03/10/17 12:42 Dose: 0.5 mg Hydromorphone HCl (Dilaudid) 1 mg IVPUSH ONETIME ONE Stop: 03/10/17 15:29 Last Admin: 03/10/17 15:37 Dose: 1 mg Sodium Chloride (Normal Saline) 1,000 mls @ 1,000 mls/hr IV ASDIRECTED [facility] Last Admin: 03/10/17 12:03 Dose: 1,000 mls/hr Sodium Chloride (Normal Saline) 1,000 mls @ 1,000 mls/hr IV ASDIRECTED [facility] Last Admin: 03/10/17 13:09 Dose: 1,000 mls/hr Sodium Chloride (Normal Saline) 1,000 mls @ 500 mls/hr IV ASDIRECTED [facility] Last Admin: 03/10/17 17:13 Dose: 500 mls/hr Sodium Chloride (Normal Saline) 80 mls @ 3 mls/sec IV ASDIRECTED [facility] Last Admin: 03/10/17 17:07 Dose: 3 mls/sec Insulin Aspart (Novolog) 5 unit SUBCUT WITHMEALSANDBED [facility] Last Admin: 03/11/17 08:54 Dose: 5 units Iopamidol (Isovue-300 (61%)) 100 ml IV . DIRECTED [facility] Last Admin: 03/10/17 17:07 Dose: 100 ml Lorazepam (Ativan) 1 mg IVPUSH ONETIME ONE Stop: 03/10/17 19:10 Last Admin: 03/10/17 19:25 Dose: 1 mg Ondansetron HCl (Zofran) 4 mg IVPUSH ONETIME ONE Stop: 03/10/17 11:48 Last Admin: 03/10/17 12:06 Dose: 4 mg Potassium Chloride (Klor-Con M20) 40 meq PO ONETIME ONE Stop: 03/11/17 11:31 Last Admin: 03/11/17 12:13 Dose: 40 meq Sodium Chloride (Saline Flush) 10 ml FLUSH ASDIRECTED PRN PRN Reason: Keep Vein Open Last Admin: 03/10/17 17:07 Dose: 10 ml - Exam Quality Assessment: No: Supplemental Oxygen General: Alert, Oriented, Cooperative, Mild Distress Lungs: Clear to Auscultation, Normal Respiratory Effort Cardiovascular: Regular Rate, Regular Rhythm GI/Abdominal Exam: Soft, No Distention, No Mass, Tender Extremities: No Pedal Edema, Other (1 cm chronic surgical wound bottom of the foot) Psy/Mental Status: Alert, Normal Affect - Problem List Review Problem List Initiated/Reviewed/Updated: Yes - My Orders Last 24 Hours: My Active Orders 03/11/17 07:30 POC Glucose [Blood Glucose Check, Bedside] [RC] WITHMEALSANDBED 03/11/17 12:49 Cholescintigraphy w Pharm Int [NM] Routine 03/11/17 12:52 Insulin Aspart [NovoLOG] 1 - 5 unit SUBCUT WITHMEALSANDBED 03/11/17 13:00 Metoclopramide [Reglan] 5 mg IVPUSH Q6H 03/11/17 16:30 GLUCOSE POC LAB TO COLLECT [POC] QIDACANDBED 03/11/17 21:00 GLUCOSE POC LAB TO COLLECT [POC] QIDACANDBED 03/11/17 Dinner NPO After Midnight [Nothing per Oral After Midnight Diet] [DIET] 03/12/17 05:00 BASIC METABOLIC PANEL,BMP [CHEM] Timed CBC W/O DIFF,HEMOGRAM [HEME] Timed (1) 03/12/17 07:30 GLUCOSE POC LAB TO COLLECT [POC] QIDACANDBED 03/12/17 11:30 GLUCOSE POC LAB TO COLLECT [POC] QIDACANDBED 03/12/17 16:30 GLUCOSE POC LAB TO COLLECT [POC] QIDACANDBED 03/12/17 21:00 GLUCOSE POC LAB TO COLLECT [POC] QIDACANDBED 03/13/17 07:30 GLUCOSE POC LAB TO COLLECT [POC] QIDACANDBED 03/13/17 11:30 GLUCOSE POC LAB TO COLLECT [POC] QIDACANDBED 03/13/17 16:30 GLUCOSE POC LAB TO COLLECT [POC] QIDACANDBED 03/13/17 21:00 GLUCOSE POC LAB TO COLLECT [POC] QIDACANDBED 03/14/17 07:30 GLUCOSE POC LAB TO COLLECT [POC] QIDACANDBED 03/14/17 11:30 GLUCOSE POC LAB TO COLLECT [POC] QIDACANDBED 03/14/17 16:30 GLUCOSE POC LAB TO COLLECT [POC] QIDACANDBED 03/14/17 21:00 GLUCOSE POC LAB TO COLLECT [POC] QIDACANDBED 03/15/17 07:30 GLUCOSE POC LAB TO COLLECT [POC] QIDACANDBED 03/15/17 11:30 GLUCOSE POC LAB TO COLLECT [POC] QIDACANDBED 03/15/17 16:30 GLUCOSE POC LAB TO COLLECT [POC] QIDACANDBED 03/15/17 21:00 GLUCOSE POC LAB TO COLLECT [POC] QIDACANDBED 03/16/17 07:30 GLUCOSE POC LAB TO COLLECT [POC] QIDACANDBED 03/16/17 11:30 GLUCOSE POC LAB TO COLLECT [POC] QIDACANDBED 03/16/17 16:30 GLUCOSE POC LAB TO COLLECT [POC] QIDACANDBED 03/16/17 21:00 GLUCOSE POC LAB TO COLLECT [POC] QIDACANDBED 03/17/17 07:30 GLUCOSE POC LAB TO COLLECT [POC] QIDACANDBED 03/17/17 11:30 GLUCOSE POC LAB TO COLLECT [POC] QIDACANDBED 03/17/17 16:30 GLUCOSE POC LAB TO COLLECT [POC] QIDACANDBED 03/17/17 21:00 GLUCOSE POC LAB TO COLLECT [POC] QIDACANDBED 03/18/17 07:30 GLUCOSE POC LAB TO COLLECT [POC] QIDACANDBED 03/18/17 11:30 GLUCOSE POC LAB TO COLLECT [POC] QIDACANDBED 03/18/17 16:30 GLUCOSE POC LAB TO COLLECT [POC] QIDACANDBED - Plan Plan:: ASSESSMENT / PLAN Epigastric abdominal pain with nausea and vomiting - initially suspected gastroenteritis. He did recently have a EGD and colonoscopy. Dr. Keating had recommended further workup for biliary dyskinesia. He has not had fevers. Unable to keep anything down for several days and not improving with fluids and anti-nausea therapy. -Continue IV fluids -Nausea management -IV and PO medications for pain control -HIDA scan in the morning Diabetes Type 1 - sugars acceptable so far. Complicated by neuropathy and microvascular issues. -Insulin Levemir 30 units at bedtime -Insulin Novolog 5 units with meals -low dose sliding scale coverage -blood glucose PCO before meals and at bedtimes. Foot Ulcer due to secondary Diabetes Type 1 - no strong evidence for infection at this time. -has appointment with Dr. Macario on 03-13-2017 Maintenance issues -Nutrition: diabetic diet; soft -DVT: ambulate -PPI: IV Protonix 40mg daily Disposition; home García Hilton MD
[2017-03-11] MEDS: Metoclopramide 10 MG/2 ML SDV IVPUSH SCH ×2 (13:59→20:04)
[2017-03-11] MEDS: Insulin Detemir 100 Units/ML 3 ML Pen SUBCUT SCH (21:53)
[2017-03-11] MEDS: Simvastatin 20 MG Tab PO SCH (21:54)
[2017-03-11] MEDS: Zolpidem 5 MG Tab PO SCH (21:58)
[2017-03-12] MEDS: Metoclopramide 10 MG/2 ML SDV IVPUSH SCH ×4 (01:33→19:34)
[2017-03-12] MEDS ORDERED: 50% Dextrose in Water 50 ML Syringe ONE (07:41)
[2017-03-12] MEDS ORDERED: 50% Dextrose in Water 50 ML Syringe IVPUSH ONE ×2 (07:48→12:04)
[2017-03-12] MEDS: LORazepam 2 MG/ML SDV IV PRN (07:59)
[2017-03-12] MEDS: Insulin Aspart 100 Units/ML 3 ML Pen SUBCUT SCH ×8 (08:04→21:48)
[2017-03-12] MEDS: Pantoprazole 40 MG Vial IVPUSH SCH (08:11)
[2017-03-12] MEDS ORDERED: Potassium Chloride 20 MEQ Tab.ER PO ONE (09:00)
[2017-03-12] MEDS ORDERED: Potassium Chloride 40 MEQ in Premix Bag 1 BAG IV ONE (10:33)
[2017-03-12] MEDS: HYDROmorphone 1 MG/ML Syringe IVPUSH PRN ×2 (10:39→13:30)
[2017-03-12] MEDS: Aspirin 81 MG Tab.EC PO SCH (10:43)
[2017-03-12] MEDS: Multivitamins with Iron/Calcium/Folic Acid/Minerals Tab PO SCH (10:43)
[2017-03-12] MEDS: Gabapentin 300 MG Cap PO SCH ×3 (10:43→21:47)
[2017-03-12] MEDS: LIDOCAINE 1% IV SCH ×2 (11:51→14:27)
[2017-03-12] MEDS: SODIUM CHLORIDE 0.9% IV SCH ×2 (11:51→14:27)
[2017-03-12] MEDS: POTASSIUM CHLORIDE IV SCH ×2 (11:51→14:27)
[2017-03-12] MEDS: Sodium Chloride 0.9% 1,000 ML IV SCH (11:52)
--- NOTE | 2017-03-12 12:07 | NM ---
Cholescintigraphy w Pharm Int HISTORY: Epigastric pain. Technique: 5.25 mCi of technetium 99 Choletec was administered and a biliary scan was obtained. Patie nt was given 8 ounces of Ensure orally and ejection fraction was calculated. After the Ensure was giv en patient did complain of nausea and abdominal pain. COMPARISON: CT scan 03/10/2017. FINDINGS: Gallbladder is seen at 25 minutes no evidence for acute cholecystitis. The ejection fractio n is calculated at 12.5% which is markedly diminished normal being greater than 35%. Impression: Significant biliary dyskinesia.
[2017-03-12] MEDS ORDERED: Insulin Detemir 100 Units/ML 3 ML Pen SUBCUT SCH (13:24)
--- NOTE | 2017-03-12 13:55 | PCM.PN ---
- General Info Date of Service: 03/12/17 Subjective Update: Mr. Dumont has continued to experience abdominal discomfort, this was worse today after he received the ensure further the HIDA scan. Vital signs have been stable and he has remained afebrile. HIDA scan did show decreased ejection fraction consistent with biliary dyskinesia, confirms gallbladder is likely cause of current symptoms. - Review of Systems General: Denies: Fever, Weakness, Chills Pulmonary: Reports: No Symptoms Cardiovascular: Reports: No Symptoms Gastrointestinal: Reports: Abdominal Pain, Nausea, Vomiting. Denies: Constipation, Diarrhea, Difficulty Swallowing - Patient Data Vitals - Most Recent: Last Vital Signs Temp 99.0 F 03/12/17 11:16 Pulse 110 H 03/12/17 11:16 Resp 16 03/12/17 11:16 BP 160/90 H 03/12/17 11:16 Pulse Ox 98 03/12/17 11:16 Weight - Most Recent: 172 lb 9.951 oz I&O - Last 24 Hours: Intake & Output 03/11/17 03/12/17 03/12/17 22:59 06:59 14:59 Intake Total 1556 1040 162 Output Total 200 Balance 1556 1040 -38 Lab Results Last 24 Hours: Laboratory Results - last 24 hr 03/12/17 03/12/17 Range/Units 05:00 05:00 WBC 12.7 H (4.5-11.0) K/uL RBC 4.20 L (4.30-5.90) M/uL Hgb 12.2 (12.0-15.0) g/dL Hct 36.3 L (40.0-54.0) % MCV 86 (80-98) fL MCH 29 (27-31) pg MCHC 34 (32-36) % Plt Count 249 (150-400) K/uL Sodium 141 (140-148) mmol/L Potassium 3.0 L (3.6-5.2) mmol/L Chloride 104 (100-108) mmol/L Carbon Dioxide 31 (21-32) mmol/L Anion Gap 9.0 (5.0-14.0) mmol/L BUN 10 (7-18) mg/dL Creatinine 1.0 (0.8-1.3) mg/dL Est Cr Clr Drug Dosing 90.34 mL/min Estimated GFR (MDRD) > 60 (>60) Glucose 67 L (74-106) mg/dL Calcium 8.0 L (8.5-10.1) mg/dL Med Orders - Current: Current Medications Acetaminophen (Tylenol) 650 mg PO Q4H PRN PRN Reason: Pain (Mild 1-3)/fever Albuterol (Proventil Neb Soln) 2.5 mg NEB Q4H PRN PRN Reason: Shortness Of Breath/wheezing Aspirin (Halfprin) 81 mg PO DAILY [facility] Last Admin: 03/12/17 10:43 Dose: Not Given Gabapentin (Neurontin) 300 mg PO TID [facility] Last Admin: 03/12/17 13:06 Dose: Not Given Hydromorphone HCl (Dilaudid) 1 mg IVPUSH Q2H PRN PRN Reason: Abdominal Pain Last Admin: 03/12/17 13:30 Dose: 1 mg Potassium Chloride 20 meq/Lidocaine HCl 2 ml/ Sodium Chloride 162 mls @ 78 mls/ hr IV Q2H [facility] Stop: 03/12/17 15:29 Last Admin: 03/12/17 11:51 Dose: 78 mls/hr Potassium Cl/Dextrose/Lact Ringer's (D5 Lr With 20 Meq Kcl) 1,000 mls @ 100 mls /hr IV ASDIRECTED [facility] Ampicillin Sodium/Sulbactam (Sodium 1.5 gm/ Sodium Chloride) 50 mls @ 100 mls/ hr IV Q6H [facility] Insulin Aspart (Novolog) 0 unit SUBCUT QIDACANDBED [facility] PRN Reason: Protocol Last Admin: 03/12/17 13:03 Dose: Not Given Insulin Aspart (Novolog) 0 unit SUBCUT WITHMEALSANDBED [facility] Last Admin: 03/12/17 13:05 Dose: Not Given Insulin Detemir (Levemir) 20 unit SUBCUT BEDTIME [facility] Lorazepam (Ativan) 1 mg IV Q6H PRN PRN Reason: Nausea/Vomiting Last Admin: 03/12/17 07:59 Dose: 1 mg Metoclopramide HCl (Reglan) 5 mg IVPUSH Q6H [facility] Last Admin: 03/12/17 13:07 Dose: 5 mg Multivitamins/Minerals (Thera M Plus) 1 tab PO DAILY [facility] Last Admin: 03/12/17 10:43 Dose: Not Given Ondansetron HCl (Zofran Odt) 4 mg PO Q6H PRN PRN Reason: Nausea able to take PO Last Admin: 03/11/17 07:02 Dose: 4 mg Oxycodone HCl (Oxycodone) 5 mg PO Q4H PRN PRN Reason: Pain (moderate 4-6) Last Admin: 03/11/17 13:58 Dose: 5 mg Pantoprazole Sodium (Protonix Iv) 40 mg IVPUSH ACBREAKFAST [facility] Last Admin: 03/12/17 08:11 Dose: 40 mg Simvastatin (Zocor) 20 mg PO BEDTIME [facility] Last Admin: 03/11/17 21:54 Dose: 20 mg Zolpidem Tartrate (Ambien) 5 mg PO BEDTIME [facility] Last Admin: 03/11/17 21:58 Dose: 5 mg Discontinued Medications Al Hydroxide/Mg Hydroxide (Mag-Al Plus) 30 ml PO ONETIME ONE Stop: 03/10/17 13:37 Last Admin: 03/10/17 13:40 Dose: 30 ml Dextrose/Water (Dextrose 50% In Water) Confirm Administered Dose 50 ml .ROUTE .STK-MED ONE Stop: 03/12/17 07:42 Last Admin: 03/12/17 07:52 Dose: 25 ml Dextrose/Water (Dextrose 50% In Water) 50 ml IVPUSH ONETIME ONE Stop: 03/12/17 07:49 Last Admin: 03/12/17 08:04 Dose: Not Given Dextrose/Water (Dextrose 50% In Water) 50 ml IVPUSH ONETIME ONE Stop: 03/12/17 12:05 Last Admin: 03/12/17 12:20 Dose: 25 ml Hydromorphone HCl (Dilaudid) 0.5 mg IVPUSH ONETIME ONE Stop: 03/10/17 12:38 Last Admin: 03/10/17 12:42 Dose: 0.5 mg Hydromorphone HCl (Dilaudid) 1 mg IVPUSH ONETIME ONE Stop: 03/10/17 15:29 Last Admin: 03/10/17 15:37 Dose: 1 mg Sodium Chloride (Normal Saline) 1,000 mls @ 1,000 mls/hr IV ASDIRECTED [facility] Last Admin: 03/10/17 12:03 Dose: 1,000 mls/hr Sodium Chloride (Normal Saline) 1,000 mls @ 1,000 mls/hr IV ASDIRECTED [facility] Last Admin: 03/10/17 13:09 Dose: 1,000 mls/hr Sodium Chloride (Normal Saline) 1,000 mls @ 500 mls/hr IV ASDIRECTED [facility] Last Admin: 03/10/17 17:13 Dose: 500 mls/hr Sodium Chloride (Normal Saline) 80 mls @ 3 mls/sec IV ASDIRECTED [facility] Last Admin: 03/10/17 17:07 Dose: 3 mls/sec Sodium Chloride (Normal Saline) 1,000 mls @ 150 mls/hr IV ASDIRECTED [facility] Last Admin: 03/11/17 12:12 Dose: 150 mls/hr Sodium Chloride (Normal Saline) 1,000 mls @ 100 mls/hr IV ASDIRECTED [facility] Last Admin: 03/12/17 11:52 Dose: 100 mls/hr Insulin Aspart (Novolog) 5 unit SUBCUT WITHMEALSANDBED [facility] Last Admin: 03/11/17 13:05 Dose: Not Given Insulin Detemir (Levemir) 30 unit SUBCUT BEDTIME [facility] Last Admin: 03/11/17 21:53 Dose: 30 units Iopamidol (Isovue-300 (61%)) 100 ml IV . DIRECTED [facility] Last Admin: 03/10/17 17:07 Dose: 100 ml Lorazepam (Ativan) 1 mg IVPUSH ONETIME ONE Stop: 03/10/17 19:10 Last Admin: 03/10/17 19:25 Dose: 1 mg Ondansetron HCl (Zofran) 4 mg IVPUSH ONETIME ONE Stop: 03/10/17 11:48 Last Admin: 03/10/17 12:06 Dose: 4 mg Potassium Chloride (Klor-Con M20) 40 meq PO ONETIME ONE Stop: 03/11/17 11:31 Last Admin: 03/11/17 12:13 Dose: 40 meq Potassium Chloride (Klor-Con M20) 40 meq PO ONETIME ONE Stop: 03/12/17 09:01 Last Admin: 03/12/17 10:44 Dose: Not Given Sodium Chloride (Saline Flush) 10 ml FLUSH ASDIRECTED PRN PRN Reason: Keep Vein Open Last Admin: 03/10/17 17:07 Dose: 10 ml - Exam Quality Assessment: Supplemental Oxygen, DVT Prophylaxis General: Alert, Oriented, Cooperative, Moderate Distress Lungs: Clear to Auscultation, Normal Respiratory Effort Cardiovascular: Regular Rate, Regular Rhythm, No Murmurs GI/Abdominal Exam: Soft, No Organomegaly, Tender. No: Distended, Guarding, Rigid, Rebound Extremities: Non-Tender, No Pedal Edema Skin: Warm, Dry, Intact - Problem List Review Problem List Initiated/Reviewed/Updated: Yes - My Orders Last 24 Hours: My Active Orders 03/12/17 11:30 Potassium Chloride 20 meq Lidocaine 1% [Xylocaine 1%] 2 ml Sodium Chloride 0.9 % [Normal Saline] 150 ml IV Q2H 03/12/17 13:24 Insulin Detemir [Levemir] 20 unit SUBCUT BEDTIME 03/12/17 13:30 Dextrose 5%-Lactated Ringers with KCl 20 mEq @ 100 mL/Hr (1000 mL) Dextrose 5%- Lact Ringers w/KCl [D5 LR with 20 mEq KCl] 1,000 ml IV ASDIRECTED 03/12/17 13:47 Consult to Physician [CONS] Routine 03/12/17 13:48 Notify Provider Consults [RC] ASDIRECTED 03/12/17 14:00 Ampicillin/Sulbactam Na [Unasyn] 1.5 gm Sodium Chloride 0.9% [Normal Saline] 50 ml IV Q6HR 03/12/17 Lunch NPO Now [Nothing per Oral Now Diet] [DIET] 03/13/17 05:00 CBC WITH AUTO DIFF [HEME] Timed COMPREHENSIVE METABOLIC PN,CMP [CHEM] Timed - Plan Plan:: ASSESSMENT / PLAN Cholecystitis- HIDA scan shows evidence of biliary dyskinesia is likely cause of current symptoms. -Consult Dr. Keating for surgical opinion -Continue IV fluids -Nausea management -IV and PO medications for pain control -HIDA scan in the morning Diabetes Type 1 - glucose levels have been running somewhat low while he has been nothing by mouth -Insulin Levemir 20 units at bedtime -Insulin Novolog 5 units with meals -low dose sliding scale coverage -blood glucose PCO before meals and at bedtimes. Foot Ulcer due to secondary Diabetes Type 1 - no strong evidence for infection at this time. -has appointment with Dr. Macario on 03-13-2017 Maintenance issues -Nutrition: diabetic diet; soft -DVT: ambulate -PPI: IV Protonix 40mg daily Disposition; home
[2017-03-12] MEDS: Dextrose 5%-Lact Ringers w/KCl 1,000 ML IV SCH (13:57)
[2017-03-12] MEDS: Ampicillin/Sulbactam Na 1.5 GM in Sodium Chloride 0.9% 50 ML IV SCH ×2 (16:00→21:51)
[2017-03-12] MEDS: Simvastatin 20 MG Tab PO SCH (21:47)
[2017-03-12] MEDS: Zolpidem 5 MG Tab PO SCH (22:06)
[2017-03-13] MEDS: Metoclopramide 10 MG/2 ML SDV IVPUSH SCH ×4 (02:11→21:14)
[2017-03-13] MEDS: Ampicillin/Sulbactam Na 1.5 GM in Sodium Chloride 0.9% 50 ML IV SCH ×4 (02:11→21:21)
[2017-03-13] MEDS: Dextrose 5%-Lact Ringers w/KCl 1,000 ML IV SCH ×2 (02:21→15:16)
[2017-03-13] MEDS ORDERED: 50% Dextrose in Water 50 ML Syringe IVPUSH STA (05:23)
[2017-03-13] MEDS: Pantoprazole 40 MG Vial IVPUSH SCH (07:43)
[2017-03-13] MEDS: Aspirin 81 MG Tab.EC PO SCH (08:21)
[2017-03-13] MEDS: Insulin Aspart 100 Units/ML 3 ML Pen SUBCUT SCH ×8 (08:22→21:36)
[2017-03-13] MEDS: Gabapentin 300 MG Cap PO SCH ×3 (08:22→21:21)
[2017-03-13] MEDS: Multivitamins with Iron/Calcium/Folic Acid/Minerals Tab PO SCH (08:22)
[2017-03-13] MEDS ORDERED: Potassium Chloride 40 MEQ in Premix Bag 1 BAG IV ONE (08:43)
--- NOTE | 2017-03-13 09:32 | PN ---
DATE OF SERVICE: 03/13/2017 SUBJECTIVE: Musa Dumont is a 47-year-old male who has had persistent nausea and vomiting. He had an EGD and colonoscopy, which were negative. With his workup, he had a HIDA scan and on the HIDA scan, he was symptomatic and the ejection fraction was 16%. He is n.p.o. for a laparoscopic possible open cholecystectomy today. He is afebrile. He continues to report some nausea. Type 1 diabetes diagnosed in his 30s. Blood sugar did go down to 48 last night and hospitalists have been managing that. He has been n.p.o. since midnight. Past 24 hours oral intake was 920. He had a 200 mL emesis. Urine output was 1050. REVIEW OF SYSTEMS: Remainder of review of systems negative for any pertinent positives and negatives. OBJECTIVE: GENERAL: Musa Dumont is a 47-year-old male sitting up in the chair. Alert and orientated. VITAL SIGNS: TPR 97.5, 69, 18, and blood pressure 144/82. HEENT: Negative. NECK: Supple. HEART: Regular rate and rhythm. LUNGS: Clear. ABDOMEN: Generalized tenderness. Slight distention. EXTREMITIES: Without peripheral edema. NEUROLOGIC: Cranial nerves II to XII intact. ASSESSMENT: 1. Biliary dyskinesia. 2. Gastroenteritis. 3. Dehydration. 4. Diabetes type 1. 5. Hypertension. 6. Foot ulcers secondary to diabetes. PLAN: 1. Remain n.p.o. 2. Schedule and have consent signed for laparoscopic possible open cholecystectomy, general anesthesia. Case to follow, 03/13/2017, remain n.p.o. 3. Cefoxitin 2 grams IV on-call to OR. 4. We will evaluate p.r.n. 5. Preoperative shower and incentive spirometer given to the patient with instructions. Marlene Zhang PA-C /[id number]
[2017-03-13] MEDS: SODIUM CHLORIDE 0.9% IV SCH ×2 (09:48→12:30)
[2017-03-13] MEDS: LIDOCAINE 1% IV SCH ×2 (09:48→12:30)
[2017-03-13] MEDS: POTASSIUM CHLORIDE IV SCH ×2 (09:48→12:30)
[2017-03-13] MEDS ORDERED: Propofol 200 MG/20 ML SDV ONE (10:10)
[2017-03-13] MEDS ORDERED: Glycopyrrolate 0.2 MG/ML 5 ML MDV ONE (10:10)
[2017-03-13] MEDS ORDERED: Rocuronium 50 MG/5 ML Vial ONE (10:10)
[2017-03-13] MEDS ORDERED: Dexamethasone 4 MG/ML SDV ONE (10:10)
[2017-03-13] MEDS ORDERED: Succinylcholine 200 MG/10 ML MDV ONE (10:10)
[2017-03-13] MEDS ORDERED: Neostigmine Methylsulfate 1 MG/ML 5 ML Syringe ONE (10:10)
[2017-03-13] MEDS ORDERED: Ondansetron 4 MG/2 ML SDV ONE (10:10)
[2017-03-13] MEDS ORDERED: 50% Dextrose in Water 50 ML Syringe IVPUSH ONE (11:27)
[2017-03-13] MEDS ORDERED: cefOXitin 2 GM in Sodium Chloride 0.9% 50 ML IV ONE (12:30)
[2017-03-13] MEDS ORDERED: Bupivacaine 0.5%/EPINEPHrine 1:200,000 50 ML MDV ONE (13:35)
[2017-03-13] MEDS ORDERED: HYDROmorphone/Normal Saline 15 MG/30 ML PCA IV PRN (14:30)
[2017-03-13] MEDS ORDERED: HYDROmorphone/Normal Saline 15 MG/30 ML PCA IV ONE (14:33)
[2017-03-13] MEDS ORDERED: Naloxone 0.4 MG/ML SDV IV PRN (14:35)
--- NOTE | 2017-03-13 16:19 | PCM.PN ---
- General Info Date of Service: 03/13/17 Subjective Update: Mr. Dumont underwent laparoscopic cholecystectomy earlier this afternoon, since surgery his nausea has resolved. Vital signs have otherwise been stable and he has remained afebrile. Blood sugars have been running low with nothing by mouth status. Evening dose of insulins has been further decreased. Functional Status: Reports: Pain Controlled, Urinating - Review of Systems General: Denies: Fever, Weakness, Chills Pulmonary: Reports: No Symptoms Cardiovascular: Reports: No Symptoms Gastrointestinal: Reports: Abdominal Pain. Denies: Diarrhea, Difficulty Swallowing, Nausea, Vomiting Genitourinary: Reports: No Symptoms - Patient Data Vitals - Most Recent: Last Vital Signs Temp 97.1 F 03/13/17 15:05 Pulse 83 03/13/17 15:48 Resp 16 03/13/17 15:48 BP 161/85 H 03/13/17 15:48 Pulse Ox 100 03/13/17 15:48 Weight - Most Recent: 172 lb 9.951 oz I&O - Last 24 Hours: Intake & Output 03/13/17 03/13/17 03/13/17 06:59 14:59 22:59 Intake Total 938 425 Balance 938 425 Lab Results Last 24 Hours: Laboratory Results - last 24 hr 03/13/17 03/13/17 Range/Units 05:00 05:00 WBC 8.4 (4.5-11.0) K/uL RBC 4.06 L (4.30-5.90) M/uL Hgb 11.8 L (12.0-15.0) g/dL Hct 34.6 L (40.0-54.0) % MCV 85 (80-98) fL MCH 29 (27-31) pg MCHC 34 (32-36) % Plt Count 207 (150-400) K/uL Neut % (Auto) 54 (36-66) % Lymph % (Auto) 33 (24-44) % Bell % (Auto) 11 H (2-6) % Eos % (Auto) 1 L (2-4) % Baso % (Auto) 0 (0-1) % Sodium 142 (140-148) mmol/L Potassium 3.4 L (3.6-5.2) mmol/L Chloride 106 (100-108) mmol/L Carbon Dioxide 30 (21-32) mmol/L Anion Gap 9.4 (5.0-14.0) mmol/L BUN 7 (7-18) mg/dL Creatinine 0.9 (0.8-1.3) mg/dL Est Cr Clr Drug Dosing 100.04 mL/min Estimated GFR (MDRD) > 60 (>60) Glucose 61 L (74-106) mg/dL Calcium 8.2 L (8.5-10.1) mg/dL Total Bilirubin 0.6 (0.2-1.0) mg/dL AST 12 L (15-37) U/L ALT 12 (12-78) U/L Alkaline Phosphatase 45 L (46-116) U/L Total Protein 5.5 L (6.4-8.2) g/dL Albumin 2.8 L (3.4-5.0) g/dL Globulin 2.7 (2.3-3.5) g/dL Albumin/Globulin Ratio 1.0 L (1.2-2.2) Med Orders - Current: Current Medications Acetaminophen (Tylenol) 650 mg PO Q4H PRN PRN Reason: Pain (Mild 1-3)/fever Hydrocodone Bitart/Acetaminophen (Keo 325-5 Mg) 1 - 2 tab PO Q4H PRN PRN Reason: PAIN Albuterol (Proventil Neb Soln) 2.5 mg NEB Q4H PRN PRN Reason: Shortness Of Breath/wheezing Aspirin (Halfprin) 81 mg PO DAILY [facility] Last Admin: 03/13/17 08:21 Dose: Not Given Gabapentin (Neurontin) 300 mg PO TID [facility] Last Admin: 03/13/17 14:10 Dose: Not Given Hydromorphone HCl (Dilaudid) 1 mg IVPUSH Q2H PRN PRN Reason: Abdominal Pain Last Admin: 03/12/17 13:30 Dose: 1 mg Hydromorphone HCl (Dilaudid Dance Artist 15 Mg In Ns 30 Ml) 0 mg IV ASDIRECTED PRN; Protocol PRN Reason: Pain Last Admin: 03/13/17 14:39 Dose: 0.3 mg Potassium Cl/Dextrose/Lact Ringer's (D5 Lr With 20 Meq Kcl) 1,000 mls @ 100 mls /hr IV ASDIRECTED [facility] Last Admin: 03/13/17 15:16 Dose: 100 mls/hr Ampicillin Sodium/Sulbactam (Sodium 1.5 gm/ Sodium Chloride) 50 mls @ 100 mls/ hr IV Q6H [facility] Last Admin: 03/13/17 11:54 Dose: 100 mls/hr Insulin Aspart (Novolog) 0 unit SUBCUT QIDACANDBED [facility] PRN Reason: Protocol Last Admin: 03/13/17 14:09 Dose: Not Given Insulin Aspart (Novolog) 0 unit SUBCUT WITHMEALSANDBED [facility] Last Admin: 03/13/17 14:09 Dose: Not Given Insulin Detemir (Levemir) 12 unit SUBCUT BEDTIME [facility] Stop: 03/13/17 21:01 Lorazepam (Ativan) 1 mg IV Q6H PRN PRN Reason: Nausea/Vomiting Last Admin: 03/12/17 07:59 Dose: 1 mg Metoclopramide HCl (Reglan) 5 mg IVPUSH Q6H [facility] Last Admin: 03/13/17 14:10 Dose: Not Given Multivitamins/Minerals (Thera M Plus) 1 tab PO DAILY [facility] Last Admin: 03/13/17 08:22 Dose: Not Given Naloxone HCl (Narcan) 0.1 mg IV ASDIRECTED PRN PRN Reason: decreased respiratory rate Ondansetron HCl (Zofran Odt) 4 mg PO Q6H PRN PRN Reason: Nausea able to take PO Last Admin: 03/11/17 07:02 Dose: 4 mg Oxycodone HCl (Oxycodone) 5 mg PO Q4H PRN PRN Reason: Pain (moderate 4-6) Last Admin: 03/11/17 13:58 Dose: 5 mg Pantoprazole Sodium (Protonix Iv) 40 mg IVPUSH ACBREAKFAST [facility] Last Admin: 03/13/17 07:43 Dose: 40 mg Simvastatin (Zocor) 20 mg PO BEDTIME [facility] Last Admin: 03/12/17 21:47 Dose: 20 mg Zolpidem Tartrate (Ambien) 5 mg PO BEDTIME [facility] Last Admin: 03/12/17 22:06 Dose: 5 mg Discontinued Medications Al Hydroxide/Mg Hydroxide (Mag-Al Plus) 30 ml PO ONETIME ONE Stop: 03/10/17 13:37 Last Admin: 03/10/17 13:40 Dose: 30 ml Bupivacaine HCl/Epinephrine Bitart (Marcaine 0.5%/Epinephrine 1:200,000) Confirm Administered Dose 50 ml .ROUTE .ST-MED ONE Stop: 03/13/17 13:36 Last Admin: 03/13/17 14:01 Dose: 20 ml Dexamethasone (Dexamethasone) Confirm Administered Dose 4 mg .ROUTE .STK-MED ONE Stop: 03/13/17 10:11 Dextrose/Water (Dextrose 50% In Water) Confirm Administered Dose 50 ml .ROUTE .[facility]-MED ONE Stop: 03/12/17 07:42 Last Admin: 03/12/17 07:52 Dose: 25 ml Dextrose/Water (Dextrose 50% In Water) 50 ml IVPUSH ONETIME ONE Stop: 03/12/17 07:49 Last Admin: 03/12/17 08:04 Dose: Not Given Dextrose/Water (Dextrose 50% In Water) 50 ml IVPUSH ONETIME ONE Stop: 03/12/17 12:05 Last Admin: 03/12/17 12:20 Dose: 25 ml Dextrose/Water (Dextrose 50% In Water) 50 ml IVPUSH STAT STA Stop: 03/13/17 05:24 Last Admin: 03/13/17 05:30 Dose: 50 ml Dextrose/Water (Dextrose 50% In Water) 50 ml IVPUSH ONETIME ONE Stop: 03/13/17 11:28 Last Admin: 03/13/17 11:37 Dose: 50 ml Fentanyl Citrate (Fentanyl) Confirm Administered Dose 500 mcg .ROUTE .STK-MED ONE Stop: 03/13/17 10:11 Glycopyrrolate (Robinul) Confirm Administered Dose 1 mg .ROUTE .[facility]-MED ONE Stop: 03/13/17 10:11 Hydromorphone HCl (Dilaudid) 0.5 mg IVPUSH ONETIME ONE Stop: 03/10/17 12:38 Last Admin: 03/10/17 12:42 Dose: 0.5 mg Hydromorphone HCl (Dilaudid) 1 mg IVPUSH ONETIME ONE Stop: 03/10/17 15:29 Last Admin: 03/10/17 15:37 Dose: 1 mg Sodium Chloride (Normal Saline) 1,000 mls @ 1,000 mls/hr IV ASDIRECTED [facility] Last Admin: 03/10/17 12:03 Dose: 1,000 mls/hr Sodium Chloride (Normal Saline) 1,000 mls @ 1,000 mls/hr IV ASDIRECTED [facility] Last Admin: 03/10/17 13:09 Dose: 1,000 mls/hr Sodium Chloride (Normal Saline) 1,000 mls @ 500 mls/hr IV ASDIRECTED [facility] Last Admin: 03/10/17 17:13 Dose: 500 mls/hr Sodium Chloride (Normal Saline) 80 mls @ 3 mls/sec IV ASDIRECTED [facility] Last Admin: 03/10/17 17:07 Dose: 3 mls/sec Sodium Chloride (Normal Saline) 1,000 mls @ 150 mls/hr IV ASDIRECTED [facility] Last Admin: 03/11/17 12:12 Dose: 150 mls/hr Sodium Chloride (Normal Saline) 1,000 mls @ 100 mls/hr IV ASDIRECTED [facility] Last Admin: 03/12/17 11:52 Dose: 100 mls/hr Potassium Chloride 20 meq/Lidocaine HCl 2 ml/ Sodium Chloride 162 mls @ 78 mls/ hr IV Q2H [facility] Stop: 03/12/17 15:29 Last Admin: 03/12/17 14:27 Dose: 78 mls/hr Cefoxitin Sodium 2 gm/ Sodium (Chloride) 50 mls @ 100 mls/hr IV ONETIME ONE Stop: 03/13/17 12:59 Last Admin: 03/13/17 13:03 Dose: 100 mls/hr Potassium Chloride 20 meq/Lidocaine HCl 2 ml/ Sodium Chloride 162 mls @ 81 mls/ hr IV Q2H [facility] Stop: 03/13/17 13:29 Last Admin: 03/13/17 12:30 Dose: 81 mls/hr Insulin Aspart (Novolog) 5 unit SUBCUT WITHMEALSANDBED [facility] Last Admin: 03/11/17 13:05 Dose: Not Given Insulin Detemir (Levemir) 30 unit SUBCUT BEDTIME [facility] Last Admin: 03/11/17 21:53 Dose: 30 units Insulin Detemir (Levemir) 20 unit SUBCUT BEDTIME [facility] Last Admin: 03/12/17 22:59 Dose: 20 units Iopamidol (Isovue-300 (61%)) 100 ml IV . DIRECTED [facility] Last Admin: 03/10/17 17:07 Dose: 100 ml Lorazepam (Ativan) 1 mg IVPUSH ONETIME ONE Stop: 03/10/17 19:10 Last Admin: 03/10/17 19:25 Dose: 1 mg Neostigmine Methylsulfate (Neostigmine) Confirm Administered Dose 5 mg .ROUTE .STK-MED ONE Stop: 03/13/17 10:11 Ondansetron HCl (Zofran) 4 mg IVPUSH ONETIME ONE Stop: 03/10/17 11:48 Last Admin: 03/10/17 12:06 Dose: 4 mg Ondansetron HCl (Zofran) Confirm Administered Dose 4 mg .ROUTE .STK-MED ONE Stop: 03/13/17 10:11 Potassium Chloride (Klor-Con M20) 40 meq PO ONETIME ONE Stop: 03/11/17 11:31 Last Admin: 03/11/17 12:13 Dose: 40 meq Potassium Chloride (Klor-Con M20) 40 meq PO ONETIME ONE Stop: 03/12/17 09:01 Last Admin: 03/12/17 10:44 Dose: Not Given Propofol (Diprivan 20 Ml) Confirm Administered Dose 200 mg .ROUTE .STK-MED ONE Stop: 03/13/17 10:11 Rocuronium Sandy (Zemuron) Confirm Administered Dose 50 mg .ROUTE .STK-MED ONE Stop: 03/13/17 10:11 Sodium Chloride (Saline Flush) 10 ml FLUSH ASDIRECTED PRN PRN Reason: Keep Vein Open Last Admin: 03/10/17 17:07 Dose: 10 ml Succinylcholine Chloride (Quelicin) Confirm Administered Dose 200 mg .ROUTE .STK -MED ONE Stop: 03/13/17 10:11 - Exam Quality Assessment: DVT Prophylaxis General: Alert, Oriented, Cooperative, Mild Distress Lungs: Clear to Auscultation, Normal Respiratory Effort Cardiovascular: Regular Rate, Regular Rhythm, No Murmurs GI/Abdominal Exam: Soft, No Organomegaly, No Distention, Tender. No: Distended , Guarding, Rigid, Rebound Extremities: Non-Tender, No Pedal Edema Skin: Warm, Dry - Problem List Review Problem List Initiated/Reviewed/Updated: Yes - My Orders Last 24 Hours: My Active Orders 03/13/17 21:00 Insulin Detemir [Levemir] 12 unit SUBCUT BEDTIME 03/13/17 Breakfast NPO After Midnight [Nothing per Oral After Midnight Diet] [DIET] - Plan Plan:: ASSESSMENT / PLAN Cholecystitis- status post laparoscopic cholecystectomy done earlier this afternoon by Dr. Keating -Postoperative care per Dr. Keating Diabetes Type 1 - glucose levels have been running somewhat low while he has been nothing by mouth -Insulin Levemir 12 units at bedtime -Insulin Novolog 5 units with meals -low dose sliding scale coverage -blood glucose PCO before meals and at bedtimes. Foot Ulcer due to secondary Diabetes Type 1 - no strong evidence for infection at this time. -has follow-up appointment with Dr. Macario Maintenance issues -Nutrition: diabetic diet; soft -DVT: ambulate -PPI: IV Protonix 40mg daily Disposition; home
[2017-03-13] MEDS ORDERED: Insulin Detemir 100 Units/ML 3 ML Pen SUBCUT SCH (21:00)
[2017-03-13] MEDS: Zolpidem 5 MG Tab PO SCH (21:20)
[2017-03-13] MEDS: Simvastatin 20 MG Tab PO SCH (21:21)
[2017-03-13] MEDS: oxyCODONE 5 MG Tab PO PRN (22:15)
[2017-03-14] MEDS: Metoclopramide 10 MG/2 ML SDV IVPUSH SCH ×2 (02:11→07:42)
[2017-03-14] MEDS: Ampicillin/Sulbactam Na 1.5 GM in Sodium Chloride 0.9% 50 ML IV SCH ×2 (02:12→08:01)
[2017-03-14] MEDS: Acetaminophen/HYDROcodone 325-5 MG Tab PO PRN ×2 (02:22→08:01)
[2017-03-14] MEDS: Dextrose 5%-Lact Ringers w/KCl 1,000 ML IV SCH (04:26)
[2017-03-14 06:04] VITALS: BP 149/78
[2017-03-14] MEDS: Insulin Aspart 100 Units/ML 3 ML Pen SUBCUT SCH ×2 (07:39→07:46)
[2017-03-14] MEDS: Pantoprazole 40 MG Vial IVPUSH SCH (07:42)
[2017-03-14] MEDS: Multivitamins with Iron/Calcium/Folic Acid/Minerals Tab PO SCH (08:01)
[2017-03-14] MEDS: Aspirin 81 MG Tab.EC PO SCH (08:01)
[2017-03-14] MEDS: Gabapentin 300 MG Cap PO SCH (08:01)
[2017-03-14] MEDS ORDERED: Magnesium Oxide 400 MG Tab PO SCH (09:00)
--- NOTE | 2017-03-14 11:00 | DISCH ---
ADMISSION DIAGNOSES: Abdominal pain, gastroenteritis, dehydration, diabetes type 1, foot ulcer due to diabetes, hypertension, peripheral autonomic neuropathy. DISCHARGE DIAGNOSIS: Laparoscopic cholecystectomy, 03/13/2017. HISTORY: Musa Dumont is a 47-year-old male who has had abdominal pain. He had a negative upper and lower endoscopy, HIDA scan 16%. After preoperative evaluation and discussion of possible risks and possible complications, he wished to proceed with surgical procedure. HOSPITAL COURSE: Musa had his surgery on 03/13/2017. He had no operative complications. On postop day #1, his activity was good. His pain was well managed. He tolerated oral pain medication. Blood sugars were regulated and he was able to be discharged to home. PHYSICAL EXAMINATION: GENERAL: Musa Dumont is a 47-year-old male. VITAL SIGNS: Height 5 feet 8.9 inches, weight is 172 pounds, TPR 97.1, 77, 18, blood pressure 149/78. HEENT: Negative. NECK: Supple. HEART: Regular rate and rhythm. LUNGS: Clear. ABDOMEN: Dressings dry and intact. Abdominal binder is on. EXTREMITIES: Without peripheral edema. DISPOSITION: Discharged to home. CONDITION: Stable and improving. FOLLOWUP APPOINTMENT: With Marlene Zhang PA-C, 03/23/2017 at 09:30 a.m. HOME MEDICATIONS: Tylenol 650 mg every 4 hours p.r.n. pain, [place] 5/325 mg 1 to 2 every 4 hours p.r.n. pain #40, magnesium oxide 400 mg 1 p.o. daily #100. He is to resume his home medications of aspirin 81 mg p.o. daily, Neurontin 300 mg 3 times a day, NovoLog 5 units subcu with meals and at bedtime, sliding scale, uses 1 unit/carb up to 5 units per meal. Levemir 30 units subcu daily, multivitamin 1 daily, Zofran 4 mg sublingual every 4 hours p.r.n., Zocor 20 mg p.o. at bedtime. DISCHARGE DIET: Drink 8-10 glasses of water a day, diabetic diet. ACTIVITY: As tolerated. No lifting greater than 10 pounds for 2 weeks[address], do not drive on pain medication. May shower. Notify provider if any fever, increased pain, nausea, or vomiting. Wound incision care, keep site clean and dry. Wear abdominal binder for 2 weeks and as tolerated. Special instruction; use incentive spirometer 10 times every hour while awake. Check blood sugars per routine and adjust insulin as needed.
--- NOTE | 2017-03-19 07:56 | OR ---
DATE OF PROCEDURE: 03/13/2017 PREOPERATIVE DIAGNOSIS: Chronic and subacute cholecystitis. POSTOPERATIVE DIAGNOSES: 1. Chronic and subacute cholecystitis and cholelithiasis. 2. Umbilical hernia. OPERATIVE PROCEDURES: Diagnostic laparoscopy with: 1. Cholecystectomy (08446). 2. Umbilical hernia repair (28780). ANESTHESIA: General. REPAIRER SASH AND DOOR: Marlene Zhang PA-C and SIDDHARTHA Adams. DETAILS OF PROCEDURE: The patient was taken to the operating room, and after general endotracheal anesthesia was induced, he was placed in a lithotomy position, and the abdomen was prepped and draped. A transverse epigastric incision was made and peritoneal cavity entered under direct vision with an Optiview trocar, inflated to 15 mmHg pressure with CO2. Laparoscope was reinserted. No underlying trocar insertion site injuries were seen. Following this, the scope was directed down toward umbilicus. The patient was noted to have an umbilical hernia, which was containing some preperitoneal fat. A transverse infraumbilical incision was made, and the 12-mm trocar was then placed directly through the hernia, which would facilitate its repair at the conclusion of the procedure. The scope was then brought down to the subumbilical trocar site and a 5 mm right upper quadrant trocar placed. Upon examination of the upper abdomen, the patient was noted to have what appeared to be a subacutely inflamed gallbladder, and this being fairly edematous, particularly in the area of the gallbladder neck and somewhat elmore in color. The gallbladder was then retracted anteriorly and laterally. Beginning on the gallbladder, it was initially dissected at the level of gallbladder neck with Harmonic scalpel. This was continued around the gallbladder neck/cystic duct junction. Once that area, as well as adjacent cystic artery, were both delineated, three clips were placed proximally, one distally on each structure, and they were divided. The gallbladder was then dissected off the gallbladder bed using Harmonic Scalpel and delivered through the epigastric trocar site. Examination gallbladder off the field showed some small black stones within it. At that point, no bleeding or bile leaks were seen. Due to the extent of the edema, a 10- Amharic round Driss-Villar drain was placed through the right lateral trocar site and positioned adjacent to the gallbladder bed. The scope was then brought back up to the epigastric trocar site, and upon removal of the trocar at the umbilical site, the umbilical hernia was then repaired using the laparoscopic suture passers with a row of 0 Vicryl stitches. These were placed such that closure would be in a transverse orientation. Once these were in place, the remaining trocar in the epigastrium was closed. Fascia at that site was closed with 0 Vicryl stitch, and the umbilical hernia repair stitches were then tied, and at each of the incisions, the skin closed with a 4-0 Vicryl skin stitch. Dressing was applied. The patient was taken to the recovery room in satisfactory condition. There were no evident complications. Physician trust operations assistant, Marlene Zhang, played an essential role in assisting in this case, helping to retract structures as needed, position the patient, as well as suturing and cutting sutures as indicated. Her presence improved patient's safety and decreased the operative time. Manfred Keating MD /[id number]
--- NOTE | 2017-03-22 09:33 | DISCH ---
ADDENDUM: FINAL DIAGNOSIS: Biliary dyskinesia associated with chronic cholecystitis and cholelithiasis. DISCHARGE SUMMARY: The patient had been seen the previous week for an upper and lower endoscopy and at that time was felt not to have satisfactory explanation of his abdominal pain. He was scheduled as an outpatient for a HIDA scan, but was admitted over the weekend with increasing abdominal pain. HIDA scan was obtained, which showed a below-normal ejection fraction and also resulted in reproduction of his pain. Given this, the patient underwent a laparoscopic cholecystectomy. At the time of the procedure, cholelithiasis was confirmed.
== END 2017-03-14 11:00 | disposition home or self-care (01) | DRG 418 ==
LOC: JP.ED 11:10 → JP.MS 19:17
PROVIDERS: ADMIT Internal Medicine; ATTEND Hospitalist
PROC: 0FT44ZZ Resection of Gallbladder, Percutaneous Endoscopic Approach (ICD-10-PCS; principal; 2017-03-10)
PROC: 0WQF4ZZ Repair Abdominal Wall, Percutaneous Endoscopic Approach (ICD-10-PCS; 2017-03-10)
DX: K80.10 Calculus of gallbladder with chronic cholecystitis without obstruction (principal); K42.0 Umbilical hernia with obstruction, without gangrene; K52.9 Noninfective gastroenteritis and colitis, unspecified; E86.0 Dehydration; E10.621 Type 1 diabetes mellitus with foot ulcer; E10.42 Type 1 diabetes mellitus with diabetic polyneuropathy; E10.21 Type 1 diabetes mellitus with diabetic nephropathy; L97.519 Non-pressure chronic ulcer of other part of right foot with unspecified severity; Z79.4 Long term (current) use of insulin; E78.00 Pure hypercholesterolemia, unspecified; I10 Essential (primary) hypertension; Z89.421 Acquired absence of other right toe(s); Z87.891 Personal history of nicotine dependence; H54.7 Unspecified visual loss; F12.90 Cannabis use, unspecified, uncomplicated; Z79.82 Long term (current) use of aspirin; Z88.8 Allergy status to other drugs, medicaments and biological substances
CPT/HCPCS: 36415; 36600; 74177; 78227; 78227-26; 80048; 80053; 80305; 81001; 82150; 82803; 82962; 83605; 83690; 83735; 84100; 85025; 85027; 88304; 94762; 96361; 96374; 96375; 96376; 99285-25; A9270-GY; C9113; J0287; J0330; J0694; J1100; J1170; J2060; J2405; J2704; J2710; J2765; J3010; J3480; J7030; J7040; J7050; Q9967

== ENCOUNTER 2017-04-05 15:37 | Emergency (ER) | payer MEDICAID ==
[2017-04-05] MEDS ORDERED: Sodium Chloride 0.9% 1,000 ML IV ONE (16:50)
[2017-04-05] MEDS ORDERED: Sodium Chloride 0.9% 10 ML Syringe FLUSH PRN (16:50)
[2017-04-05] MEDS ORDERED: Prochlorperazine 10 MG/2 ML SDV IVPUSH ONE (16:53)
[2017-04-05] MEDS ORDERED: diphenhydrAMINE 50 MG/ML SDV IVPUSH ONE (16:54)
--- NOTE | 2017-04-05 17:16 | EDM.PDOC ---
<Musa Edwards Shreya - Last Filed: 04/05/17 17:11> ED HPI GENERAL MEDICAL PROBLEM - General Chief Complaint: Gastrointestinal Problem Stated Complaint: ILLNESS FROM THE CLINIC Time Seen by Provider: 04/05/17 16:42 Source of Information: Reports: Patient History Limitations: Reports: No Limitations - History of Present Illness INITIAL COMMENTS - FREE TEXT/NARRATIVE: This patient has type 1 diabetes. He complains of nausea and vomiting for the past 24 hours. He has some vague abdominal pain. He's also had loose stools. He denies any fever but he has generalized body aches. He says he just hurts all over. He's been taking some Zofran but it doesn't help he had a flu shot about 2 weeks ago when he had a cholecystectomy. He thinks he might be dehydrated now. He mentions that the cholecystectomy went just fine and he hasn't had any problems with it. There is no history of DKA. He takes NovoLog based on his carbohydrate intake usually 10-15 units per day and also takes 13 units at night of Levimir Bilateral Feet Pain Score (Numeric/FACES): 6 - Related Data Allergies Allergy/AdvReac Type Severity Reaction Status Date / Time indomethacin Allergy Confusion Verified 04/05/17 16:32 metformin Allergy Other Verified 04/05/17 16:32 Home Meds: Home Meds Aspirin [Lo-Dose Aspirin EC] 81 mg PO DAILY 08/18/15 [History] Multivitamin [Men's Multi-Vitamin] 1 mg PO DAILY 08/18/15 [History] Insulin Aspart [NovoLOG] 5 unit SUBCUT WITHMEALSANDBED 10/05/15 [History] Insulin Detemir [Levemir] 30 unit SUBCUT BEDTIME 10/05/15 [History] Gabapentin [Neurontin] 300 mg PO TID 03/21/16 [History] Simvastatin [Zocor] 20 mg PO BEDTIME 05/03/16 [History] Ondansetron [Zofran ODT] 4 mg SL Q4H PRN #12 tab.dis 02/12/17 [Rx] Acetaminophen [Tylenol] 650 mg PO Q4H PRN tablet 03/14/17 [Rx] Acetaminophen/HYDROcodone [[place] 325-5 MG] 1 - 2 tab PO Q4H PRN #40 tablet 03/14 [Rx] Magnesium Oxide 400 mg PO DAILY #100 tablet 03/14/17 [Rx] Past Medical History HEENT History: Reports: Impaired Vision Cardiovascular History: Reports: High Cholesterol, Hypertension Gastrointestinal History: Reports: Chronic Diarrhea Genitourinary History: Reports: Diabetic Nephropathy Musculoskeletal History: Reports: RA Other Musculoskeletal History: . Neurological History: Reports: Neuropathy, Peripheral Psychiatric History: Reports: Anxiety Endocrine/Metabolic History: Reports: Diabetes, Type I Dermatologic History: Reports: Other (See Below) Other Dermatologic History: diabetic ulcer right foot - Infectious Disease History Infectious Disease History: Reports: Chicken Pox - Past Surgical History HEENT Surgical History: Reports: None Cardiovascular Surgical History: Reports: None GI Surgical History: Reports: Colonoscopy, EGD Neurological Surgical History: Reports: None Musculoskeletal Surgical History: Reports: Amputation, Shoulder Surgery, Other ( See Below) Other Musculoskeletal Surgeries/Procedures:: 4th, 5th toes of right foot Dermatological Surgical History: Reports: None Social & Family History - Family History Family Medical History: Noncontributory Cardiac: Reports: Cardiomyopathy Other Cardiac Family History: Father Endocrine/Metabolic: Reports: Diabetes, type II Other Endocrine/Metabolic Family History: Grandma - Tobacco Use Smoking Status *Q: Unknown Ever Smoked Years of Tobacco use: 30 Packs/Tins Daily: 2 Used Tobacco, but Quit: Yes Month Tobacco Last Used: 4 years ago Second Hand Smoke Exposure: No - Caffeine Use Caffeine Use: Reports: Coffee Other Caffeine Use: 2 cups daily - Recreational Drug Use Recreational Drug Use: Yes Drug Use in Last 12 Months: Yes Recreational Drug Type: Reports: Marijuana/Hashish Recreational Drug Use Frequency: Daily Recreational Drug Last Use: 8 hrs ago - Living Situation & Occupation Living situation: Reports: , Alone 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: 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 [employer] GENERAL - Review of Systems Review Of Systems: See Below Constitutional: Reports: Malaise HEENT: Reports: No Symptoms Respiratory: Reports: No Symptoms Cardiovascular: Reports: No Symptoms Endocrine: Reports: No Symptoms GI/Abdominal: Reports: Abdominal Pain, Diarrhea (Just loose stools), Nausea, Vomiting : Reports: No Symptoms Musculoskeletal: Reports: Other (Generalized body aches) Skin: Reports: No Symptoms Neurological: Reports: No Symptoms Psychiatric: Reports: No Symptoms Hematologic/Lymphatic: Reports: No Symptoms Immunologic: Reports: No Symptoms ED EXAM, GI/ABD - Physical Exam Exam: See Below Exam Limited By: No Limitations General Appearance: Alert, WD/WN, Mild Distress Eyes: Bilateral: Normal Appearance Ears: Normal External Exam Nose: Normal Inspection Throat/Mouth: Normal Oropharynx Head: Atraumatic Neck: Supple Respiratory/Chest: Lungs Clear Cardiovascular: Regular Rate, Rhythm, No Murmur GI/Abdominal Exam: Soft, Non-Tender Back Exam: Normal Inspection Extremities: Other (He has a diabetic ulcer on his left foot and that was recasted by Dr. Macario earlier today patient says it doesn't need to be rechecked) Neurological: Alert, Oriented, CN II-XII Intact Psychiatric: Normal Affect Skin Exam: Warm, Dry Course - Vital Signs Last Recorded V/S: Last Vital Signs Temp 36.9 C 04/05/17 18:21 Pulse 88 04/05/17 18:21 Resp 14 04/05/17 18:21 BP 132/78 04/05/17 18:21 Pulse Ox 98 04/05/17 18:21 - Orders/Labs/Meds Orders: Active Orders 24 hr Category Date Time Status UA W/MICROSCOPIC [URIN] Urgent Lab 04/05/17 16:49 Uncollected Sodium Chloride 0.9% [Saline Flush] Med 04/05/17 16:50 Active 10 ml FLUSH ASDIRECTED PRN Saline Lock Insert [OM.PC] Urgent Oth 04/05/17 16:50 Ordered Medication Orders Sodium Chloride (Saline Flush) 10 ml FLUSH ASDIRECTED PRN PRN Reason: Keep Vein Open Last Admin: 04/05/17 17:26 Dose: 10 ml Labs: Laboratory Tests 04/05/17 04/05/17 04/05/17 Range/Units 16:50 16:50 16:50 WBC 17.1 H (4.5-11.0) K/uL RBC 4.94 (4.30-5.90) M/uL Hgb 14.3 (12.0-15.0) g/dL Hct 43.0 (40.0-54.0) % MCV 87 (80-98) fL MCH 29 (27-31) pg MCHC 33 (32-36) % Plt Count 353 (150-400) K/uL Neut % (Auto) 87 H (36-66) % Lymph % (Auto) 8 L (24-44) % Alfalfa % (Auto) 4 (2-6) % Eos % (Auto) 0 L (2-4) % Baso % (Auto) 0 (0-1) % ABG Hemoglobin (13.5-18.0) g/dL ABG Oxyhemoglobin % ABG Carboxyhemoglobin (0.0-1.6) % ABG Methemoglobin % VBG pH (7.350-7.450) VBG pCO2 mm/Hg VBG pO2 mm/Hg VBG HCO3 mmol/L VBG Total CO2 mmol/L VBG O2 Saturation VBG O2 Content %vol VBG Base Excess mm/L O2 Delivery Device Sodium 135 L (140-148) mmol/L Potassium 4.5 (3.6-5.2) mmol/L Chloride 100 (100-108) mmol/L Carbon Dioxide 26 (21-32) mmol/L Anion Gap 13.5 (5.0-14.0) mmol/L BUN 22 H D (7-18) mg/dL Creatinine 1.3 (0.8-1.3) mg/dL Est Cr Clr Drug Dosing 69.49 mL/min Estimated GFR (MDRD) 59 L (>60) Glucose 247 H (74-106) mg/dL Calcium 9.7 (8.5-10.1) mg/dL Total Bilirubin 0.5 (0.2-1.0) mg/dL AST 13 L (15-37) U/L ALT 21 (12-78) U/L Alkaline Phosphatase 86 D (46-116) U/L Total Protein 7.6 (6.4-8.2) g/dL Albumin 4.0 (3.4-5.0) g/dL Globulin 3.6 H (2.3-3.5) g/dL Albumin/Globulin Ratio 1.1 L (1.2-2.2) Ketones Negative (NEGATIVE) 04/05/17 Range/Units 16:50 WBC (4.5-11.0) K/uL RBC (4.30-5.90) M/uL Hgb (12.0-15.0) g/dL Hct (40.0-54.0) % MCV (80-98) fL MCH (27-31) pg MCHC (32-36) % Plt Count (150-400) K/uL Neut % (Auto) (36-66) % Lymph % (Auto) (24-44) % Alfalfa % (Auto) (2-6) % Eos % (Auto) (2-4) % Baso % (Auto) (0-1) % ABG Hemoglobin 14.4 (13.5-18.0) g/dL ABG Oxyhemoglobin 80.6 % ABG Carboxyhemoglobin 2.3 H (0.0-1.6) % ABG Methemoglobin 0.9 % VBG pH 7.475 H (7.350-7.450) VBG pCO2 34.1 mm/Hg VBG pO2 44.6 mm/Hg VBG HCO3 24.8 mmol/L VBG Total CO2 21.5 mmol/L VBG O2 Saturation 83.3 VBG O2 Content 16.3 %vol VBG Base Excess 2.1 mm/L O2 Delivery Device Room air Sodium (140-148) mmol/L Potassium (3.6-5.2) mmol/L Chloride (100-108) mmol/L Carbon Dioxide (21-32) mmol/L Anion Gap (5.0-14.0) mmol/L BUN (7-18) mg/dL Creatinine (0.8-1.3) mg/dL Est Cr Clr Drug Dosing mL/min Estimated GFR (MDRD) (>60) Glucose (74-106) mg/dL Calcium (8.5-10.1) mg/dL Total Bilirubin (0.2-1.0) mg/dL AST (15-37) U/L ALT (12-78) U/L Alkaline Phosphatase (46-116) U/L Total Protein (6.4-8.2) g/dL Albumin (3.4-5.0) g/dL Globulin (2.3-3.5) g/dL Albumin/Globulin Ratio (1.2-2.2) Ketones (NEGATIVE) Meds: Medications Generic Name Dose Route Start Last Admin Trade Name Freq PRN Reason Stop Dose Admin Sodium Chloride 10 ml 04/05/17 16:50 04/05/17 17:26 Saline Flush FLUSH 10 ml ASDIRECTED PRN Administration Keep Vein Open Discontinued Medications Generic Name Dose Route Start Last Admin Trade Name Freq PRN Reason Stop Dose Admin Diphenhydramine HCl 25 mg 04/05/17 16:54 02/01/18 17:27 Benadryl IVPUSH 04/05/17 16:55 25 mg ONETIME ONE Administration Sodium Chloride 1,000 mls @ 999 mls/hr 04/05/17 16:50 04/05/17 17:27 Normal Saline IV 04/05/17 17:50 999 mls/hr .BOLUS ONE Administration Prochlorperazine Edisylate 10 mg 04/05/17 16:53 04/05/17 17:27 Compazine IVPUSH 04/05/17 16:54 10 mg ONETIME ONE Administration - Re-Assessments/Exams Free Text/Narrative Re-Assessment/Exam: 04/05/17 17:15 An IV was established to a total of 2 L IV normal saline. He was given Compazine 10 mg and Benadryl 25 mg IV. Departure - Departure Disposition: Home, Self-Care 01 Clinical Impression: Dehydration, Diabetes - Discharge Information Referrals: Jeovany Jensen PA [Primary Care Provider] - Forms: ED Department Discharge Care Plan Goals: PUSH FLUIDS, TRY CLEAR LIQUIDS . iF NAUSEA OCCURS TREAT EARLY WITH SUBLING ZOFORAN. <Felicitas Macedo - Last Filed: 04/05/17 18:29> Course - Re-Assessments/Exams Free Text/Narrative Re-Assessment/Exam: 04/05/17 18:25 PT WAS HYDRATED WITH 2 LITERS OF FLUID. hE IS FEELING BETTER AND THE NAUSEA IS BETTER. hE DOES HAVE SUBLINGUAL ZOFORAN AT HOME. hE REALLY WANTS TO GO HOME AND TRY IT. iF HE IS NOT DOING WELL HE WILL RETURN. hIS LABS DO NOT INDICATE A ACIDOSIS. HE IS NOT HAVING PAIN. hIS ABDOMAN IS SOFT. Departure - Departure Time of Disposition: 18:28 Condition: Fair
[2017-04-05 18:22] VITALS: BP 132/78
== END 2017-04-05 18:37 | disposition home or self-care (01) ==
LOC: JP.ED 15:37
DX: E86.0 Dehydration (principal); E10.21 Type 1 diabetes mellitus with diabetic nephropathy; E10.42 Type 1 diabetes mellitus with diabetic polyneuropathy; I10 Essential (primary) hypertension; E78.00 Pure hypercholesterolemia, unspecified; Z88.8 Allergy status to other drugs, medicaments and biological substances; Z88.1 Allergy status to other antibiotic agents; Z79.82 Long term (current) use of aspirin; Z79.4 Long term (current) use of insulin; Z87.891 Personal history of nicotine dependence
CPT/HCPCS: 36415; 80053; 82009; 82803; 85025; 87804; 96361; 96374; 96375; 99284; J0780; J1200; J7040; J7050

== ENCOUNTER 2017-04-07 14:12 | Observation (INO) | payer MEDICAID ==
[2017-04-07] MEDS ORDERED: Lactated Ringers 1,000 ML IV ONE (14:51)
[2017-04-07] MEDS ORDERED: Metoclopramide 10 MG/2 ML SDV IVPUSH ONE (14:52)
--- NOTE | 2017-04-07 14:59 | EDM.PDOC ---
ED HPI GENERAL MEDICAL PROBLEM - General Chief Complaint: Gastrointestinal Problem Stated Complaint: ILLNESS Time Seen by Provider: 04/07/17 14:40 Source of Information: Reports: Patient, Old Records, RN History Limitations: Reports: No Limitations - History of Present Illness INITIAL COMMENTS - FREE TEXT/NARRATIVE: 47 yo marijuana smoking male with IDDM and who had his gallbladder out recently returns with nausea, vomiting, and diarrhea. Says his BS are running OK. He has not missed any of his meds. He was here 2 days ago for this and received Compazine and 2 liters of IV fluid with temporary benefit. Most of these sx's preceded his cholecystectomy. He says he has had his stools tested for C.diff and the test was negative. There has not been blood in his stool or emesis. He has not had abdominal distention. He has Zofran at home that is not controlling his nausea. Onset Date: 03/22/17 (approximately) Duration: Week(s): Location: Reports: Abdomen Quality: Reports: Other (no significant pain) Severity: Moderate Improves with: Reports: Medication (IV meds in the ER) Worsens with: Reports: Eating Associated Symptoms: Reports: Nausea/Vomiting. 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 DATA SCIENTIST: Reports: Other (see below) (Zofran without much benefit) Abdomen Pain Score (Numeric/FACES): 8 - Related Data Allergies Allergy/AdvReac Type Severity Reaction Status Date / Time indomethacin Allergy Confusion Verified 04/07/17 14:41 metformin Allergy Other Verified 04/07/17 14:41 Home Meds: Home Meds Aspirin [Lo-Dose Aspirin EC] 81 mg PO DAILY 08/18/15 [History] Multivitamin [Men's Multi-Vitamin] 1 mg PO DAILY 08/18/15 [History] Insulin Aspart [NovoLOG] 5 unit SUBCUT WITHMEALSANDBED 10/05/15 [History] Insulin Detemir [Levemir] 30 unit SUBCUT BEDTIME 10/05/15 [History] Gabapentin [Neurontin] 300 mg PO TID 03/21/16 [History] Simvastatin [Zocor] 20 mg PO BEDTIME 05/03/16 [History] Ondansetron [Zofran ODT] 4 mg SL Q4H PRN #12 tab.dis 02/12/17 [Rx] Acetaminophen [Tylenol] 650 mg PO Q4H PRN tablet 03/14/17 [Rx] Acetaminophen/HYDROcodone [[place] 325-5 MG] 1 - 2 tab PO Q4H PRN #40 tablet 03/14 [Rx] Magnesium Oxide 400 mg PO DAILY #100 tablet 03/14/17 [Rx] Past Medical History HEENT History: Reports: Impaired Vision Cardiovascular History: Reports: High Cholesterol, Hypertension Gastrointestinal History: Reports: Chronic Diarrhea Genitourinary History: Reports: Diabetic Nephropathy Musculoskeletal History: Reports: RA Other Musculoskeletal History: . Neurological History: Reports: Neuropathy, Peripheral Psychiatric History: Reports: Anxiety Endocrine/Metabolic History: Reports: Diabetes, Type I Dermatologic History: Reports: Other (See Below) Other Dermatologic History: diabetic ulcer right foot - Infectious Disease History Infectious Disease History: Reports: Chicken Pox - Past Surgical History Head Surgeries/Procedures: Reports: None HEENT Surgical History: Reports: None Cardiovascular Surgical History: Reports: None GI Surgical History: Reports: Colonoscopy, EGD Neurological Surgical History: Reports: None Musculoskeletal Surgical History: Reports: Amputation, Shoulder Surgery, Other ( See Below) Other Musculoskeletal Surgeries/Procedures:: 4th, 5th toes of right foot Dermatological Surgical History: Reports: None Social & Family History - Family History Family Medical History: Noncontributory Cardiac: Reports: Cardiomyopathy Other Cardiac Family History: Father Endocrine/Metabolic: Reports: Diabetes, type II Other Endocrine/Metabolic Family History: Grandma - Tobacco Use Smoking Status *Q: Former Smoker Years of Tobacco use: 30 Packs/Tins Daily: 2 Used Tobacco, but Quit: Yes Month Tobacco Last Used: 4 years ago Second Hand Smoke Exposure: No - Caffeine Use Caffeine Use: Reports: Coffee Other Caffeine Use: 2 cups daily - Recreational Drug Use Recreational Drug Use: No Drug Use in Last 12 Months: Yes Recreational Drug Type: Reports: Marijuana/Hashish Recreational Drug Use Frequency: Daily Recreational Drug Last Use: 8 hrs ago - Living Situation & Occupation Living situation: Reports: , Alone Occupation: Employed [facility] [employer] - Review of Systems Review Of Systems: See Below Constitutional: Reports: No Symptoms HEENT: Reports: No Symptoms Respiratory: Reports: No Symptoms Cardiovascular: Reports: Lightheadedness (at times with standing) Endocrine: Reports: No Symptoms GI/Abdominal: Reports: Diarrhea, Nausea, Vomiting. Denies: Abdominal Pain, Black Stool, Bloody Stool, Distension, Hematemesis, Hematochezia, Melena : Reports: No Symptoms Musculoskeletal: Reports: No Symptoms Skin: Reports: No Symptoms Neurological: Reports: No Symptoms Psychiatric: Reports: No Symptoms ED EXAM, GI/ABD - Physical Exam Exam: See Below Exam Limited By: No Limitations General Appearance: Alert, WD/WN, No Apparent Distress Eyes: Bilateral: Normal Appearance Ears: Normal External Exam, Normal Canal, Hearing Grossly Normal, Normal TMs Nose: Normal Inspection, Normal Mucosa, No Blood Throat/Mouth: Normal Inspection, Normal Lips, Normal Oropharynx, Normal Voice, No Airway Compromise, Other (poor dentition). No: Normal Teeth Head: Atraumatic, Normocephalic Neck: Normal Inspection, Supple, Non-Tender Respiratory/Chest: No Respiratory Distress, Lungs Clear, Normal Breath Sounds, No Accessory Muscle Use Cardiovascular: Regular Rate, Rhythm, No Edema, Tachycardia GI/Abdominal Exam: Normal Bowel Sounds, Soft, Non-Tender, No Distention. No: Distended, Guarding, Rigid, Rebound, Tender, Abnormal Bowel Sounds, Hernia Extremities: Normal Inspection, Normal Range of Motion, Non-Tender, No Pedal Edema Neurological: Alert, Oriented, CN II-XII Intact, Normal Cognition, No Motor/ Sensory Deficits Psychiatric: Normal Affect, Normal Mood Skin Exam: Warm, Dry, Intact, Normal Color, No Rash Lymphatic: No Adenopathy Course - Vital Signs Text/Narrative:: ER treatment: LR 1000 ml, NS + 20 meq KCL/l x 1000 ml , MagSO4 2 gm IV, Reglan 10 mg IV, Zofran 4 mg IV, Cholestyramine 4 gm po(vomited up some of this). Last Recorded V/S: Last Vital Signs Temp 36.2 C 04/07/17 14:38 Pulse 96 04/07/17 16:42 Resp 18 04/07/17 16:42 BP 191/114 H 04/07/17 16:42 Pulse Ox 98 04/07/17 16:42 - Orders/Labs/Meds Orders: Active Orders 24 hr Category Date Time Status Magnesium Sulfate/Water [Magnesium Sulfate 2 GM in Med 04/07/17 15:24 Active Water 50 ML] 2 gm Premix Bag 1 bag IV ONETIME NS + KCl 20mEq/L [Normal Saline with 20 mEq KCl] 1,000 Med 04/07/17 16:45 Active ml IV ASDIRECTED Medication Orders Magnesium Sulfate 2 gm/ Premix 50 mls @ 12.5 mls/hr IV ONETIME ONE Stop: 04/07/17 19:23 Last Admin: 04/07/17 15:41 Dose: 12.5 mls/hr Potassium Chloride/Sodium Chloride (Normal Saline With 20 Meq Kcl) 1,000 mls @ 500 mls/hr IV ASDIRECTED GT Last Admin: 04/07/17 16:44 Dose: 500 mls/hr Labs: Laboratory Tests 04/07/17 Range/Units 15:03 Sodium 135 L (140-148) mmol/L Potassium 3.9 (3.6-5.2) mmol/L Chloride 96 L (100-108) mmol/L Carbon Dioxide 28 (21-32) mmol/L Anion Gap 14.9 H (5.0-14.0) mmol/L BUN 15 (7-18) mg/dL Creatinine 1.1 (0.8-1.3) mg/dL Est Cr Clr Drug Dosing 82.13 mL/min Estimated GFR (MDRD) > 60 (>60) Glucose 185 H (74-106) mg/dL Calcium 9.0 (8.5-10.1) mg/dL Magnesium 1.3 L (1.8-2.4) mg/dL Meds: Medications Generic Name Dose Route Start Last Admin Trade Name Freq PRN Reason Stop Dose Admin Magnesium Sulfate 2 gm/ Premix 50 mls @ 12.5 mls/hr 04/07/17 15:24 04/07/17 15:41 IV 04/07/17 19:23 12.5 mls/hr ONETIME ONE Administration Potassium Chloride/Sodium Chloride 1,000 mls @ 500 mls/hr 04/07/17 16:45 05/20 16:44 Normal Saline With 20 Meq Kcl IV 500 mls/hr ASDIRECTED GT Administration Discontinued Medications Generic Name Dose Route Start Last Admin Trade Name Freq PRN Reason Stop Dose Admin Cholestyramine Resin 4 gm 04/07/17 15:30 04/07/17 16:29 Cholestyramine Packet PO 04/07/17 15:31 4 gm ONETIME ONE Administration Lactated Ringer's 1,000 mls @ 1,000 mls/hr 04/07/17 14:51 04/07/17 15:21 Ringers, Lactated IV 04/07/17 15:50 1,000 mls/hr BOLUS ONE Administration Lisinopril 20 mg 04/07/17 17:09 Prinivil PO 04/07/17 17:10 ONETIME ONE Lisinopril Confirm 04/07/17 17:16 Prinivil Administered 04/07/17 17:17 Dose 10 mg .ROUTE .STK-MED ONE Metoclopramide HCl 10 mg 04/07/17 14:52 04/07/17 15:21 Reglan IVPUSH 04/07/17 14:53 10 mg ONETIME ONE Administration Ondansetron HCl 4 mg 04/07/17 16:33 04/07/17 16:45 Zofran IVPUSH 04/07/17 16:34 4 mg ONETIME ONE Administration Departure - Departure Time of Disposition: 17:30 Disposition: Refer to Observation Condition: Fair Clinical Impression: Nausea vomiting and diarrhea, Hypomagnesemia HTN (hypertension) Qualifiers: Hypertension type: unspecified secondary hypertension Qualified Code(s): I15.9 - Secondary hypertension, unspecified; I15 - Secondary hypertension Diabetes Qualifiers: Diabetes mellitus type: type 1 Diabetes mellitus complication status: with other specified complication Qualified Code(s): E10.69 - Type 1 diabetes mellitus with other specified complication - Discharge Information Referrals: Jeovany Jensen PA [Primary Care Provider] - Forms: ED Department Discharge - My Orders Last 24 Hours: My Active Orders 04/07/17 15:24 Magnesium Sulfate/Water [Magnesium Sulfate 2 GM in Water 50 ML] 2 gm Premix Bag 1 bag IV ONETIME 04/07/17 16:45 NS + KCl 20mEq/L [Normal Saline with 20 mEq KCl] 1,000 ml IV ASDIRECTED - Assessment/Plan Last 24 Hours: My Active Orders 04/07/17 15:24 Magnesium Sulfate/Water [Magnesium Sulfate 2 GM in Water 50 ML] 2 gm Premix Bag 1 bag IV ONETIME 04/07/17 16:45 NS + KCl 20mEq/L [Normal Saline with 20 mEq KCl] 1,000 ml IV ASDIRECTED
[2017-04-07] MEDS ORDERED: Magnesium Sulfate/Water 2 GM in Premix Bag 1 BAG IV ONE (15:24)
[2017-04-07] MEDS ORDERED: Cholestyramine/Sucrose Powder 4 GM Packet PO ONE (15:30)
[2017-04-07] MEDS ORDERED: Ondansetron 4 MG/2 ML SDV IVPUSH ONE (16:33)
[2017-04-07] MEDS ORDERED: NS + KCl 20mEq/L 1,000 ML IV SCH (16:45)
[2017-04-07] MEDS ORDERED: Lisinopril 10 MG Tab PO ONE (17:09)
[2017-04-07] MEDS ORDERED: Lisinopril 10 MG Tab ONE (17:16)
--- NOTE | 2017-04-07 18:33 | PCM.HP ---
H&P History of Present Illness - General Date of Service: 04/07/17 Admit Problem/Dx: Source of Information: Patient, Old Records, Provider, RN Notes Reviewed History Limitations: Reports: No Limitations - History of Present Illness Initial Comments - Free Text/Narative: Mr. Dumont is a 47-year-old gentleman who is admitted to observation status through the emergency department with nausea, vomiting, and dehydration. He was hospitalized at this facility and underwent laparoscopic cholecystectomy approximately one month ago. He's felt relatively well since the surgical procedure until 2 days ago when he is developed nausea and vomiting which has been persistent over the past 48 hours. He does have a history of chronic diarrhea but does not think that this is significantly worse than what he is experienced over the past several months. He does have some abdominal wall pain related to vomiting but denies any other abdominal pain or fever. He was seen and evaluated in the emergency department 2 nights ago, given IV fluids and antiemetic therapy. He felt improved but within several hours developed recurrent nausea and vomiting. He does have known underlying type 1 diabetes mellitus, there is no evidence of ketoacidosis at the present time. He did have an elevated white count the other night, repeat white blood cell count is pending at this time. Abdomen Pain Score (Numeric/FACES): 8 - Related Data Allergies/Adverse Reactions: Allergies Allergy/AdvReac Type Severity Reaction Status Date / Time indomethacin Allergy Confusion Verified 04/07/17 14:41 metformin Allergy Other Verified 04/07/17 14:41 Home Medications: Home Meds Aspirin [Lo-Dose Aspirin EC] 81 mg PO DAILY 08/18/15 [History] Multivitamin [Men's Multi-Vitamin] 1 mg PO DAILY 08/18/15 [History] Insulin Aspart [NovoLOG] 5 unit SUBCUT WITHMEALSANDBED 10/05/15 [History] Insulin Detemir [Levemir] 13 unit SUBCUT BEDTIME 10/05/15 [History] Gabapentin [Neurontin] 300 mg PO TID 03/21/16 [History] Simvastatin [Zocor] 20 mg PO BEDTIME 05/03/16 [History] Ondansetron [Zofran ODT] 4 mg SL Q4H PRN #12 tab.dis 02/12/17 [Rx] Acetaminophen [Tylenol] 650 mg PO Q4H PRN tablet 03/14/17 [Rx] Magnesium Oxide 400 mg PO DAILY #100 tablet 03/14/17 [Rx] Past Medical History HEENT History: Reports: Impaired Vision Cardiovascular History: Reports: High Cholesterol, Hypertension Gastrointestinal History: Reports: Chronic Diarrhea Genitourinary History: Reports: Diabetic Nephropathy Musculoskeletal History: Reports: RA Other Musculoskeletal History: . Neurological History: Reports: Neuropathy, Peripheral Psychiatric History: Reports: Anxiety Endocrine/Metabolic History: Reports: Diabetes, Type I Dermatologic History: Reports: Other (See Below) Other Dermatologic History: diabetic ulcer right foot - Infectious Disease History Infectious Disease History: Reports: Chicken Pox - Past Surgical History Head Surgeries/Procedures: Reports: None HEENT Surgical History: Reports: None Cardiovascular Surgical History: Reports: None GI Surgical History: Reports: Colonoscopy, EGD Neurological Surgical History: Reports: None Musculoskeletal Surgical History: Reports: Amputation, Shoulder Surgery, Other ( See Below) Other Musculoskeletal Surgeries/Procedures:: 4th, 5th toes of right foot Dermatological Surgical History: Reports: None Social & Family History - Family History Family Medical History: Noncontributory Cardiac: Reports: Cardiomyopathy Other Cardiac Family History: Father Endocrine/Metabolic: Reports: Diabetes, type II Other Endocrine/Metabolic Family History: Grandma - Tobacco Use Smoking Status *Q: Former Smoker Years of Tobacco use: 30 Packs/Tins Daily: 2 Used Tobacco, but Quit: Yes Month Tobacco Last Used: 4 years ago Second Hand Smoke Exposure: No - Caffeine Use Caffeine Use: Reports: Coffee Other Caffeine Use: 2 cups daily - Recreational Drug Use Recreational Drug Use: No Drug Use in Last 12 Months: Yes Recreational Drug Type: Reports: Marijuana/Hashish Recreational Drug Use Frequency: Daily Recreational Drug Last Use: 8 hrs ago - Living Situation & Occupation Living situation: Reports: , Alone Occupation: Employed H&P Review of Systems - Review of Systems: Review Of Systems: See Below General: Reports: Weakness, Diaphoresis, Decreased Appetite. Denies: Fever, Chills HEENT: Reports: No Symptoms Pulmonary: Reports: No Symptoms Cardiovascular: Reports: No Symptoms Gastrointestinal: Reports: Abdominal Pain (Abdominal wall), Diarrhea (Chronic), Nausea, Vomiting. Denies: Black Stool, Bloody Stool, Difficulty Swallowing, Distension Genitourinary: Reports: No Symptoms Musculoskeletal: Reports: No Symptoms Skin: Reports: No Symptoms Psychiatric: Reports: No Symptoms Neurological: Reports: No Symptoms Hematologic/Lymphatic: Reports: No Symptoms Immunologic: Reports: No Symptoms Exam - Exam Exam: See Below - Vital Signs Vital Signs: Last Vital Signs Temp 97.2 F 04/07/17 14:38 Pulse 86 04/07/17 18:22 Resp 18 04/07/17 18:22 BP 166/92 H 04/07/17 18:22 Pulse Ox 96 04/07/17 18:22 Weight: 180 lb - Exam Quality Assessment: DVT Prophylaxis General: Alert, Oriented, Cooperative, Mild Distress HEENT: Conjunctiva Clear, Hearing Intact, Normal Nasal Septum, Posterior Pharynx Clear, Pupils Equal. No: Mucosa Moist & [place] Neck: Supple, Trachea Midline, +2 Carotid Pulse wo Bruit Lungs: Clear to Auscultation, Normal Respiratory Effort Cardiovascular: Regular Rate, Regular Rhythm, Normal S1, Normal S2. No: Systolic Murmur, Diastolic Murmur GI/Abdominal Exam: Soft, Non-Tender, No Organomegaly, No Distention Back Exam: Normal Inspection, Full Range of Motion Extremities: Non-Tender, No Pedal Edema, Other (Dressing and Cam Walker in place right foot) Skin: Warm, Dry Neurological: Cranial Nerves Intact, Strength Equal Bilateral, Normal Speech, Normal Tone. No: Sensation Intact, Focal Deficit Neuro Extensive - Mental Status: Alert, Oriented x3, Normal Mood/Affect, Normal Cognition, Memory Intact - Patient Data Lab Results Last 24 hrs: Laboratory Results - last 24 hr 04/07/17 04/07/17 Range/Units 15:03 18:20 WBC 16.3 H (4.5-11.0) K/uL RBC 4.94 (4.30-5.90) M/uL Hgb 14.7 (12.0-15.0) g/dL Hct 41.9 (40.0-54.0) % MCV 85 (80-98) fL MCH 30 (27-31) pg MCHC 35 (32-36) % Plt Count 301 (150-400) K/uL Neut % (Auto) 80 H (36-66) % Lymph % (Auto) 11 L (24-44) % [place] % (Auto) 9 H (2-6) % Eos % (Auto) 0 L (2-4) % Baso % (Auto) 0 (0-1) % Sodium 135 L (140-148) mmol/L Potassium 3.9 (3.6-5.2) mmol/L Chloride 96 L (100-108) mmol/L Carbon Dioxide 28 (21-32) mmol/L Anion Gap 14.9 H (5.0-14.0) mmol/L BUN 15 (7-18) mg/dL Creatinine 1.1 (0.8-1.3) mg/dL Est Cr Clr Drug Dosing 82.13 mL/min Estimated GFR (MDRD) > 60 (>60) Glucose 185 H (74-106) mg/dL Calcium 9.0 (8.5-10.1) mg/dL Magnesium 1.3 L (1.8-2.4) mg/dL Result Diagrams: 04/07/17 18:20 04/07/17 15:03 *Q Meaningful Use (ADM) - VTE *Q VTE Criteria *Q: - VTE Risk Assess *Q Each Risk Factor Represents 1 Point: Age 41 - 59 years, Obesity ( BMI > 25 kg/m2 ) Total Score 1 Point Risk Factors: 2 Each Risk Factor Represents 2 Points: None Total Score 2 Point Risk Factors: 0 Each Risk Factor Represents 3 Points: None Total Score 3 Point Risk Factors: 0 Each Risk Factor Represents 5 Points: None Total Score 5 Point Risk Factors: 0 Venous Thromboembolism Risk Factor Score *Q: 2 - Stroke *Q Stroke Criteria *Q: - AMI *Q AMI Criteria *Q: Problem List Initiated/Reviewed/Updated: Yes Orders Last 24hrs: Active Orders 24 hr Category Date Time Status Patient Status Manage Transfer [TRANSFER] Routine ADT 04/07/17 18:17 Active HEPATIC FUNCTION PANEL,HFP [CHEM] Stat Lab 04/07/17 18:20 Received LIPASE [CHEM] Stat Lab 04/07/17 18:20 Received UA W/MICROSCOPIC [URIN] Stat Lab 04/07/17 18:16 Uncollected Magnesium Sulfate/Water [Magnesium Sulfate 2 GM in Med 04/07/17 15:24 Active Water 50 ML] 2 gm Premix Bag 1 bag IV ONETIME NS + KCl 20mEq/L [Normal Saline with 20 mEq KCl] 1,000 Med 04/07/17 16:45 Active ml IV ASDIRECTED Resuscitation Status Routine Resus Stat 04/07/17 18:19 Ordered Medication Orders Magnesium Sulfate 2 gm/ Premix 50 mls @ 12.5 mls/hr IV ONETIME ONE Stop: 04/07/17 19:23 Last Admin: 04/07/17 15:41 Dose: 12.5 mls/hr Potassium Chloride/Sodium Chloride (Normal Saline With 20 Meq Kcl) 1,000 mls @ 500 mls/hr IV ASDIRECTED [facility] Last Admin: 04/07/17 16:44 Dose: 500 mls/hr Assessment/Plan Comment:: ASSESSMENT AND PLAN NAUSEA AND VOMITING WITH DEHYDRATION-likely secondary to viral gastroenteritis, no other significant abnormalities identified at this time -Further lab pending including CBC hepatic profile and lipase -IV fluids for hydration -Protonix 40 mg IV every 12 hours -Anti-medic therapy as needed TYPE 1 DIABETES MELLITUS-despite nausea vomiting for 2 days with poor oral intake no evidence of significant ketoacidosis at the present time. -Levemir insulins 20 units subcutaneous at at bedtime -4 times a day glucometers -Moderate dose sliding scale NovoLog HYPOMAGNESEMIA-likely secondary to nausea and vomiting -IV magnesium replacement -Repeat magnesium level in a.m. DIABETIC FOOT ULCER RIGHT FOOT-present on admission -Continue current management MAINTENANCE ISSUES -DVT prophylaxis; Lovenox 40 mg subcutaneous daily -GI prophylaxis; Protonix as above -[place] catheter; not indicated -Nutrition; consistent carb diet -Nicotine dependence; not required CODE STATUS-FULL CODE ADMISSION STATUS-this patient will be admitted to observation status, expect no more than a one night hospital stay for evaluation and management of problems as outlined above. DISPOSITION-anticipate discharge to home after the hospital stay. PRIMARY CARE PROVIDER-Jeovany Jensen
[2017-04-07] MEDS ORDERED: LORazepam 2 MG/ML SDV IVPUSH PRN (19:02)
[2017-04-07] MEDS ORDERED: HYDROmorphone 0.5 MG/0.5 ML Syringe IVPUSH PRN (19:02)
[2017-04-07] MEDS ORDERED: Acetaminophen 325 MG Tab PO PRN (19:02)
[2017-04-07] MEDS ORDERED: Glucose Gel 15 GM in 37.5 GM Tube PO PRN (19:02)
[2017-04-07] MEDS ORDERED: Ondansetron 4 MG/2 ML SDV IV PRN (19:02)
[2017-04-07] MEDS ORDERED: Enoxaparin 40 MG/0.4 ML Syringe SUBCUT SCH ×2 (19:02→20:00)
[2017-04-07] MEDS ORDERED: Sodium Chloride 0.9% 10 ML Syringe FLUSH PRN (19:02)
[2017-04-07] MEDS ORDERED: 50% Dextrose in Water 50 ML Syringe IV PRN (19:02)
[2017-04-07] MEDS ORDERED: Sodium Chloride 0.9% 500 ML IV SCH (19:02)
[2017-04-07] MEDS ORDERED: Acetaminophen/HYDROcodone 325-5 MG Tab PO PRN (19:02)
[2017-04-07] MEDS: Magnesium Sulfate/Water 2 GM in Premix Bag 1 BAG IV SCH (19:29)
[2017-04-07] MEDS ORDERED: Pantoprazole 40 MG Vial IV SCH (19:30)
[2017-04-07] MEDS ORDERED: Simvastatin 20 MG Tab PO SCH (21:00)
[2017-04-07] MEDS: Insulin Aspart 100 Units/ML 3 ML Pen SUBCUT SCH (21:32)
[2017-04-07] MEDS: Gabapentin 300 MG Cap PO SCH (21:53)
[2017-04-07] MEDS ORDERED: Insulin Detemir 100 Units/ML 3 ML Pen SUBCUT ONE (22:00)
[2017-04-07] MEDS ORDERED: Sodium Chloride 0.9% 1,000 ML IV SCH (22:30)
[2017-04-08] MEDS: Magnesium Sulfate/Water 2 GM in Premix Bag 1 BAG IV SCH (00:45)
[2017-04-08] MEDS ORDERED: Aluminum Hydroxide/Magnesium Hydroxide/Simethicone Susp 30 ML Cup PO PRN (03:17)
[2017-04-08] MEDS ORDERED: Magnesium Oxide 400 MG Tab PO SCH (09:00)
[2017-04-08] MEDS ORDERED: Aspirin 81 MG Tab.EC PO SCH (09:00)
[2017-04-08] MEDS ORDERED: Pantoprazole 40 MG Vial IV SCH (09:00)
[2017-04-08 10:21] VITALS: BP 113/69
[2017-04-08] MEDS: Insulin Aspart 100 Units/ML 3 ML Pen SUBCUT SCH (10:22)
[2017-04-08] MEDS: Gabapentin 300 MG Cap PO SCH (10:26)
--- NOTE | 2017-04-08 10:29 | PCM.DCSUM1 ---
Discharge Summary - Hospital Course Brief History: Mr. Dumont is a 47-year-old gentleman who was admitted to observation status through the emergency department for management of nausea, vomiting, dehydration, secondary to gastroenteritis. - Discharge Data Discharge Date: 04/08/17 Discharge Disposition: Home, Self-Care 01 Condition: Fair - Discharge Diagnosis/Problem(s) (1) Nausea and vomiting SNOMED Code(s): 83024637 ICD Code: R11.2 - NAUSEA WITH VOMITING, UNSPECIFIED Status: Acute Current Visit: Yes (2) Diabetes SNOMED Code(s): 06548298 ICD Code: E11.9 - TYPE 2 DIABETES MELLITUS WITHOUT COMPLICATIONS Status: Acute Current Visit: Yes Qualifiers: Diabetes mellitus type: type 1 Diabetes mellitus complication status: with other specified complication Qualified Code(s): E10.69 - Type 1 diabetes mellitus with other specified complication (3) Gastroenteritis SNOMED Code(s): 68323648 ICD Code: K52.9 - NONINFECTIVE GASTROENTERITIS AND COLITIS, UNSPECIFIED Status: Acute Priority: High Current Visit: No (4) Dehydration SNOMED Code(s): 64364763 ICD Code: E86.0 - DEHYDRATION Status: Acute Priority: High Current Visit: No (5) Foot ulcer due to secondary DM SNOMED Code(s): 8451305 ICD Code: E13.621 - OTHER SPECIFIED DIABETES MELLITUS WITH FOOT ULCER; L97.509 - NON-PRESSURE CHRONIC ULCER OTH PRT UNSP FOOT W UNSP SEVERITY Status : Chronic Priority: Medium Current Visit: No - Patient Summary/Data Hospital Course: Mr. Dumont developed symptoms of nausea and vomiting 2 days prior to admission, he was seen and evaluated in the emergency department. During the first visit was given IV fluids as well as antiemetic therapy and felt improved enough that he could be discharged home. After he returned home had recurrent symptoms and again presented to the emergency department on the day of admission. He does have a history of ongoing difficulty with chronic diarrhea but did not feel that the diarrhea was worse than his usual baseline. He did undergo a laparoscopic cholecystectomy approximately one month ago and had no further difficulty with nausea vomiting up until symptoms recurred in the past few days. On evaluation in the emergency department on the evening of admission he was found to have elevated white blood cell count and hypomagnesemia. He was admitted to the hospital on observation status, given IV fluids for hydration as well as antiemetic therapy. Magnesium was replaced intravenously and on the morning of discharge was mildly elevated. He tolerated a regular breakfast prior to discharge with no recurrent symptoms of nausea or vomiting. Because of his history of type 1 diabetes mellitus glucose levels were monitored throughout the hospital stay, he was treated with sliding scale NovoLog insulin and a the decreased dose of his usual long-acting insulin. Activity will be as tolerated and he will resume his usual diet. Follow-up appointment will be scheduled with his primary care provider within one week. - Patient Instructions Diet: Diabetic Diet Activity: As Tolerated Other/Special Instructions: Please schedule follow-up appointment with primary care provider within one week. - Discharge Plan Prescriptions/Med Rec: Pantoprazole [ProTONIX] 40 mg PO BID #30 tab.cr Home Medications: Home Meds Aspirin [Lo-Dose Aspirin EC] 81 mg PO DAILY 08/18/15 [History] Multivitamin [Men's Multi-Vitamin] 1 mg PO DAILY 08/18/15 [History] Insulin Aspart [NovoLOG] 5 unit SUBCUT WITHMEALSANDBED 10/05/15 [History] Insulin Detemir [Levemir] 13 unit SUBCUT BEDTIME 10/05/15 [History] Gabapentin [Neurontin] 300 mg PO TID 03/21/16 [History] Simvastatin [Zocor] 20 mg PO BEDTIME 05/03/16 [History] Ondansetron [Zofran ODT] 4 mg SL Q4H PRN #12 tab.dis 02/12/17 [Rx] Acetaminophen [Tylenol] 650 mg PO Q4H PRN tablet 03/14/17 [Rx] Magnesium Oxide 400 mg PO DAILY #100 tablet 03/14/17 [Rx] Pantoprazole [ProTONIX] 40 mg PO BID #30 tab.cr 04/08/17 [Rx] Referrals: Jeovany Jensen PA [Primary Care Provider] - - Patient Data Vitals - Most Recent: Last Vital Signs Temp 98.4 F 04/08/17 10:20 Pulse 74 04/08/17 10:20 Resp 16 04/08/17 10:20 BP 113/69 04/08/17 10:20 Pulse Ox 99 04/08/17 10:20 Weight - Most Recent: 174 lb 6.4 oz I&O - Last 24 hours: Intake & Output 04/07/17 04/08/17 04/08/17 22:59 06:59 14:59 Intake Total 1688 Balance 1688 Lab Results - Last 24 hrs: Laboratory Results - last 24 hr 04/07/17 04/07/17 04/07/17 Range/Units 18:20 18:20 18:20 WBC 16.3 H (4.5-11.0) K/uL RBC 4.94 (4.30-5.90) M/uL Hgb 14.7 (12.0-15.0) g/dL Hct 41.9 (40.0-54.0) % MCV 85 (80-98) fL MCH 30 (27-31) pg MCHC 35 (32-36) % Plt Count 301 (150-400) K/uL Neut % (Auto) 80 H (36-66) % Lymph % (Auto) 11 L (24-44) % [place] % (Auto) 9 H (2-6) % Eos % (Auto) 0 L (2-4) % Baso % (Auto) 0 (0-1) % Sodium (140-148) mmol/L Potassium (3.6-5.2) mmol/L Chloride (100-108) mmol/L Carbon Dioxide (21-32) mmol/L Anion Gap (5.0-14.0) mmol/L BUN (7-18) mg/dL Creatinine (0.8-1.3) mg/dL Est Cr Clr Drug Dosing mL/min Estimated GFR (MDRD) (>60) Glucose (74-106) mg/dL Calcium (8.5-10.1) mg/dL Magnesium (1.8-2.4) mg/dL Total Bilirubin 0.6 (0.2-1.0) mg/dL Direct Bilirubin 0.13 (0.0-0.2) mg/dL Indirect Bilirubin 0.47 AST 18 (15-37) U/L ALT 20 (12-78) U/L Alkaline Phosphatase 73 (46-116) U/L Total Protein 6.8 (6.4-8.2) g/dL Albumin 3.7 (3.4-5.0) g/dL Globulin 3.1 (2.3-3.5) g/dL Albumin/Globulin Ratio 1.2 (1.2-2.2) Lipase 58 L (73-393) U/L Urine Color Urine Appearance Urine pH (4.5-8.0) Ur Specific [place] (1.008-1.030) Urine Protein (NEGATIVE) mg/dL Urine Glucose (UA) (NEGATIVE) mg/dL Urine Ketones (NEGATIVE) mg/dL Urine Occult Blood (NEGATIVE) Urine Nitrite (NEGAITVE) Urine Bilirubin (NEGATIVE) Urine Urobilinogen (NORMAL) mg/dL Ur Leukocyte Esterase (NEGATIVE) Urine RBC (0-5) Urine WBC (0-5) Ur Epithelial Cells Amorphous Sediment Urine Bacteria Urine Mucus 04/07/17 04/08/17 04/08/17 Range/Units 18:20 04:00 04:00 WBC 11.1 H (4.5-11.0) K/uL RBC 4.08 L (4.30-5.90) M/uL Hgb 11.8 L D (12.0-15.0) g/dL Hct 35.1 L (40.0-54.0) % MCV 86 (80-98) fL MCH 29 (27-31) pg MCHC 34 (32-36) % Plt Count 259 (150-400) K/uL Neut % (Auto) 61 (36-66) % Lymph % (Auto) 27 (24-44) % [place] % (Auto) 12 H (2-6) % Eos % (Auto) 1 L (2-4) % Baso % (Auto) 0 (0-1) % Sodium 138 L (140-148) mmol/L Potassium 3.7 (3.6-5.2) mmol/L Chloride 104 (100-108) mmol/L Carbon Dioxide 26 (21-32) mmol/L Anion Gap 11.7 (5.0-14.0) mmol/L BUN 10 (7-18) mg/dL Creatinine 0.9 (0.8-1.3) mg/dL Est Cr Clr Drug Dosing 100.38 mL/min Estimated GFR (MDRD) > 60 (>60) Glucose 88 (74-106) mg/dL Calcium 8.2 L (8.5-10.1) mg/dL Magnesium 2.6 H (1.8-2.4) mg/dL Total Bilirubin (0.2-1.0) mg/dL Direct Bilirubin (0.0-0.2) mg/dL Indirect Bilirubin AST (15-37) U/L ALT (12-78) U/L Alkaline Phosphatase (46-116) U/L Total Protein (6.4-8.2) g/dL Albumin (3.4-5.0) g/dL Globulin (2.3-3.5) g/dL Albumin/Globulin Ratio (1.2-2.2) Lipase (73-393) U/L Urine Color Yellow Urine Appearance Clear Urine pH 7.0 (4.5-8.0) Ur Specific [place] 1.015 (1.008-1.030) Urine Protein Negative (NEGATIVE) mg/dL Urine Glucose (UA) Normal (NEGATIVE) mg/dL Urine Ketones 15 H (NEGATIVE) mg/dL Urine Occult Blood Negative (NEGATIVE) Urine Nitrite Negative (NEGAITVE) Urine Bilirubin Negative (NEGATIVE) Urine Urobilinogen Normal (NORMAL) mg/dL Ur Leukocyte Esterase Negative (NEGATIVE) Urine RBC 0-5 (0-5) Urine WBC Not seen (0-5) Ur Epithelial Cells Rare Amorphous Sediment Not seen Urine Bacteria Few Urine Mucus Not seen Med Orders - Current: Current Medications Acetaminophen (Tylenol) 650 mg PO Q4H PRN PRN Reason: Pain (Mild 1-3)/fever Hydrocodone Bitart/Acetaminophen ([place] 325-5 Mg) 1 - 2 tab PO Q4H PRN PRN Reason: PAIN Al Hydroxide/Mg Hydroxide (Mag-Al Plus) 30 ml PO Q4H PRN PRN Reason: Heartburn Last Admin: 04/08/17 03:23 Dose: 30 ml Aspirin (Halfprin) 81 mg PO DAILY [facility] Dextrose (Glutose 15) 15 gm PO ONETIME PRN PRN Reason: Hypoglycemia Dextrose/Water (Dextrose 50% In Water) 50 ml IV ONETIME PRN PRN Reason: Hypoglycemia Enoxaparin Sodium (Lovenox) 40 mg SUBCUT Q24H [facility] Last Admin: 04/07/17 19:28 Dose: 40 mg Gabapentin (Neurontin) 300 mg PO TID [facility] Last Admin: 04/07/17 21:53 Dose: 300 mg Hydromorphone HCl (Dilaudid) 0.5 mg IVPUSH Q4H PRN PRN Reason: Pain Last Admin: 04/07/17 19:35 Dose: 0.5 mg Sodium Chloride (Normal Saline) 1,000 mls @ 125 mls/hr IV ASDIRECTED [facility] Last Admin: 04/08/17 02:06 Dose: 125 mls/hr Insulin Aspart (Novolog) 0 unit SUBCUT QIDACANDBED [facility] PRN Reason: Protocol Last Admin: 04/08/17 10:22 Dose: Not Given Lorazepam (Ativan) 0.5 mg IVPUSH Q4H PRN PRN Reason: Nausea Magnesium Oxide (Magnesium Oxide) 400 mg PO DAILY [facility] Ondansetron HCl (Zofran) 4 mg IV Q4H PRN PRN Reason: Nausea/Vomiting Pantoprazole Sodium (Protonix Iv) 40 mg IV Q12H [facility] Simvastatin (Zocor) 20 mg PO BEDTIME [facility] Last Admin: 04/07/17 21:53 Dose: 20 mg Sodium Chloride (Saline Flush) 10 ml FLUSH ASDIRECTED PRN PRN Reason: Keep Vein Open Discontinued Medications Cholestyramine Resin (Cholestyramine Packet) 4 gm PO ONETIME ONE Stop: 04/07/17 15:31 Last Admin: 04/07/17 16:29 Dose: 4 gm Enoxaparin Sodium (Lovenox) 40 mg SUBCUT DAILY [facility] Last Admin: 04/07/17 21:35 Dose: Not Given Lactated Ringer's (Ringers, Lactated) 1,000 mls @ 1,000 mls/hr IV BOLUS ONE Stop: 04/07/17 15:50 Last Admin: 04/07/17 15:21 Dose: 1,000 mls/hr Magnesium Sulfate 2 gm/ Premix 50 mls @ 12.5 mls/hr IV ONETIME ONE Stop: 04/07/17 19:23 Last Admin: 04/07/17 15:41 Dose: 12.5 mls/hr Potassium Chloride/Sodium Chloride (Normal Saline With 20 Meq Kcl) 1,000 mls @ 500 mls/hr IV ASDIRECTED [facility] Last Admin: 04/07/17 16:44 Dose: 500 mls/hr Magnesium Sulfate 2 gm/ Premix 50 mls @ 25 mls/hr IV Q6H [facility] Stop: 04/08/17 03:01 Last Admin: 04/08/17 00:45 Dose: 25 mls/hr Sodium Chloride (Normal Saline) 500 mls @ 250 mls/hr IV .BOLUS [facility] Stop: 04/07/17 23:03 Last Admin: 04/07/17 19:27 Dose: 250 mls/hr Insulin Detemir (Levemir) 20 unit SUBCUT BEDTIME [facility] Last Admin: 04/07/17 22:43 Dose: Not Given Insulin Detemir (Levemir) 8 unit SUBCUT ONETIME ONE Stop: 04/07/17 22:01 Last Admin: 04/07/17 21:53 Dose: 8 units Lisinopril (Prinivil) 20 mg PO ONETIME ONE Stop: 04/07/17 17:10 Last Admin: 04/07/17 17:15 Dose: 20 mg Lisinopril (Prinivil) Confirm Administered Dose 10 mg .ROUTE .STK-MED ONE Stop: 04/07/17 17:17 Last Admin: 04/07/17 22:43 Dose: Not Given Metoclopramide HCl (Reglan) 10 mg IVPUSH ONETIME ONE Stop: 04/07/17 14:53 Last Admin: 04/07/17 15:21 Dose: 10 mg Ondansetron HCl (Zofran) 4 mg IVPUSH ONETIME ONE Stop: 04/07/17 16:34 Last Admin: 04/07/17 16:45 Dose: 4 mg Pantoprazole Sodium (Protonix Iv) 40 mg IV Q12H [facility] Last Admin: 04/07/17 19:24 Dose: 40 mg *Q Meaningful Use (DIS) - VTE *Q VTE Criteria *Q: - Stroke *Q Stroke Criteria *Q: - AMI *Q AMI Criteria *Q:
== END 2017-04-08 11:28 | disposition home or self-care (01) ==
LOC: JP.ED 14:12 → JP.MS 18:17
PROVIDERS: ADMIT Hospitalist; ATTEND Hospitalist
DX: K52.9 Noninfective gastroenteritis and colitis, unspecified (principal); E86.0 Dehydration; E10.69 Type 1 diabetes mellitus with other specified complication; E10.621 Type 1 diabetes mellitus with foot ulcer; E78.00 Pure hypercholesterolemia, unspecified; I10 Essential (primary) hypertension; E10.21 Type 1 diabetes mellitus with diabetic nephropathy; M06.9 Rheumatoid arthritis, unspecified; E10.42 Type 1 diabetes mellitus with diabetic polyneuropathy; F41.9 Anxiety disorder, unspecified; L97.519 Non-pressure chronic ulcer of other part of right foot with unspecified severity; I15.9 Secondary hypertension, unspecified; Z90.49 Acquired absence of other specified parts of digestive tract; Z79.82 Long term (current) use of aspirin; Z79.4 Long term (current) use of insulin; Z79.899 Other long term (current) drug therapy; Z88.8 Allergy status to other drugs, medicaments and biological substances; Z98.890 Other specified postprocedural states; Z87.891 Personal history of nicotine dependence
CPT/HCPCS: 36415; 80048; 80076; 81001; 82962; 83690; 83735; 85025; 96361; 96365; 96366; 96372; 96375; 96376; 99285; A9270; C9113; G0378; J1170; J1650; J2405; J2765; J3475; J3480; J7040; J7120; J7030

== ENCOUNTER 2017-06-17 13:32 | Emergency (ER) | payer MEDICAID ==
[2017-06-17 14:03] VITALS: BP 135/89
[2017-06-17] MEDS ORDERED: Lactated Ringers 1,000 ML IV ONE (14:47)
[2017-06-17] MEDS ORDERED: Metoclopramide 10 MG/2 ML SDV IVPUSH ONE (14:48)
[2017-06-17] MEDS ORDERED: Atropine/Diphenoxylate 0.025-2.5 MG Tab PO ONE (14:48)
--- NOTE | 2017-06-17 14:52 | EDM.PDOC ---
ED HPI GENERAL MEDICAL PROBLEM - General Chief Complaint: Abdominal Pain Stated Complaint: STOMACH/ABD PAIN/NAUSEA Time Seen by Provider: 06/17/17 14:40 Source of Information: Reports: Patient, EMS History Limitations: Reports: No Limitations - History of Present Illness INITIAL COMMENTS - FREE TEXT/NARRATIVE: 47 yo male with diabetes presents with N/V/D and abdominal tenderness since this past Sunday. No fever or bleeding. BS running a little high. Mouth dry. Onset: Gradual Onset Date: 06/15/17 Duration: Day(s): (2), Constant Location: Reports: Abdomen Quality: Reports: Other (cramping) Severity: Moderate Improves with: Reports: None Worsens with: Reports: None Context: Reports: Other (diabetic) Associated Symptoms: Reports: Loss of Appetite, Nausea/Vomiting. 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 (see below) (none) - Related Data Allergies Allergy/AdvReac Type Severity Reaction Status Date / Time indomethacin Allergy Confusion Verified 06/17/17 14:44 metformin Allergy Other Verified 06/17/17 14:44 Home Meds: Home Meds Aspirin [Lo-Dose Aspirin EC] 81 mg PO DAILY 08/18/15 [History] Multivitamin [Men's Multi-Vitamin] 1 mg PO DAILY 08/18/15 [History] Insulin Aspart [NovoLOG] 5 unit SUBCUT WITHMEALSANDBED 10/05/15 [History] Insulin Detemir [Levemir] 13 unit SUBCUT BEDTIME 10/05/15 [History] Simvastatin [Zocor] 20 mg PO BEDTIME 05/03/16 [History] Ondansetron [Zofran ODT] 4 mg SL Q4H PRN #12 tab.dis 02/12/17 [Rx] Acetaminophen [Tylenol] 650 mg PO Q4H PRN tablet 03/14/17 [Rx] Magnesium Oxide 400 mg PO DAILY #100 tablet 03/14/17 [Rx] Pantoprazole [ProTONIX] 40 mg PO BID #30 tab.cr 04/08/17 [Rx] Pregabalin [Lyrica] 1 tab PO TID 06/17/17 [History] Past Medical History HEENT History: Reports: Impaired Vision Cardiovascular History: Reports: High Cholesterol, Hypertension Gastrointestinal History: Reports: Chronic Diarrhea Genitourinary History: Reports: Diabetic Nephropathy Musculoskeletal History: Reports: RA Other Musculoskeletal History: . Neurological History: Reports: Neuropathy, Peripheral Psychiatric History: Reports: Anxiety Endocrine/Metabolic History: Reports: Diabetes, Type I Dermatologic History: Reports: Other (See Below) Other Dermatologic History: diabetic ulcer right foot - Infectious Disease History Infectious Disease History: Reports: Chicken Pox, MRSA - Past Surgical History Head Surgeries/Procedures: Reports: None HEENT Surgical History: Reports: None Cardiovascular Surgical History: Reports: None GI Surgical History: Reports: Colonoscopy, EGD Male Surgical History: Reports: None Neurological Surgical History: Reports: None Musculoskeletal Surgical History: Reports: Amputation, Shoulder Surgery, Other ( See Below) Other Musculoskeletal Surgeries/Procedures:: 4th, 5th toes of right foot Dermatological Surgical History: Reports: None Social & Family History - Family History Family Medical History: Noncontributory Cardiac: Reports: Cardiomyopathy Other Cardiac Family History: Father Endocrine/Metabolic: Reports: Diabetes, type II Other Endocrine/Metabolic Family History: Grandma - Tobacco Use Smoking Status *Q: Former Smoker Years of Tobacco use: 30 Packs/Tins Daily: 2 Used Tobacco, but Quit: Yes Month/Year Tobacco Last Used: 2013 Second Hand Smoke Exposure: No - Caffeine Use Caffeine Use: Reports: Coffee Other Caffeine Use: 2 cups daily - Recreational Drug Use Recreational Drug Use: No Drug Use in Last 12 Months: Yes Recreational Drug Type: Reports: Marijuana/Hashish Recreational Drug Use Frequency: Daily Recreational Drug Last Use: 8 hrs ago - Living Situation & Occupation Living situation: Reports: , Alone Occupation: Employed ED ROS GENERAL - Review of Systems Review Of Systems: See Below Constitutional: Reports: Malaise, Weakness HEENT: Reports: No Symptoms Respiratory: Reports: No Symptoms Cardiovascular: Reports: No Symptoms Endocrine: Reports: Fatigue, High Glucose GI/Abdominal: Reports: Abdominal Pain, Anorexia, Diarrhea, Decreased Appetite, Nausea, Vomiting. Denies: Black Stool, Bloody Stool, Constipation, Distension, Flatus, Hematemesis, Hematochezia, Melena : Reports: No Symptoms Musculoskeletal: Reports: No Symptoms Skin: Reports: No Symptoms Neurological: Reports: No Symptoms ED EXAM, GI/ABD - Physical Exam Exam: See Below Exam Limited By: No Limitations General Appearance: Alert, WD/WN, No Apparent Distress, Thin Eyes: Bilateral: Normal Appearance Ears: Normal External Exam, Normal Canal, Hearing Grossly Normal Nose: Normal Inspection, Normal Mucosa, No Blood Throat/Mouth: Normal Inspection, Normal Lips, Normal Oropharynx, Normal Voice, No Airway Compromise Head: Atraumatic, Normocephalic Neck: Normal Inspection, Supple, Non-Tender Respiratory/Chest: No Respiratory Distress, Lungs Clear, Normal Breath Sounds, No Accessory Muscle Use Cardiovascular: Regular Rate, Rhythm, Tachycardia GI/Abdominal Exam: Normal Bowel Sounds, Soft, No Distention, Tender (diffusely) . No: Non-Tender, Guarding, Rigid, Rebound Back Exam: Normal Inspection. No: CVA Tenderness (R), CVA Tenderness (L) Extremities: Normal Inspection, Normal Range of Motion, Non-Tender, No Pedal Edema Neurological: Alert, Oriented, CN II-XII Intact, Normal Cognition, No Motor/ Sensory Deficits Psychiatric: Normal Affect, Normal Mood Skin Exam: Warm, Dry, Intact, Normal Color Lymphatic: No Adenopathy Course - Vital Signs Text/Narrative:: Abdomen remained soft and non-distended throughout his visit. Tenderness is diffuse, non-localized. Last Recorded V/S: Last Vital Signs Temp 36.7 C 06/17/17 14:49 Pulse 114 H 06/17/17 14:49 Resp 16 06/17/17 14:49 BP 135/89 06/17/17 14:49 Pulse Ox 100 06/17/17 14:49 Orthostatic Blood Pressure [ 114/82 Standing] Orthostatic Blood Pressure [ 131/81 Sitting] Orthostatic Blood Pressure [ 128/95 Supine] - Orders/Labs/Meds Orders: Active Orders 24 hr Category Date Time Status Orthostatic Vital Signs [RC] ASDIRECTED Care 06/17/17 16:03 Active UA W/MICROSCOPIC [URIN] Stat Lab 06/17/17 14:48 Ordered Lactated Ringers [Ringers, Lactated] 1,000 ml Med 06/17/17 16:45 Active IV BOLUS Medication Orders Lactated Ringer's (Ringers, Lactated) 1,000 mls @ 1,000 mls/hr IV BOLUS GT Last Admin: 06/17/17 16:41 Dose: 1,000 mls/hr Labs: Laboratory Tests 06/17/17 06/17/17 06/17/17 Range/Units 14:59 14:59 15:32 WBC 22.9 H (4.5-11.0) K/uL RBC 5.61 (4.30-5.90) M/uL Hgb 16.5 H D (12.0-15.0) g/dL Hct 47.2 (40.0-54.0) % MCV 84 (80-98) fL MCH 29 (27-31) pg MCHC 35 (32-36) % Plt Count 248 (150-400) K/uL Sodium 138 L (140-148) mmol/L Potassium 4.2 (3.6-5.2) mmol/L Chloride 99 L (100-108) mmol/L Carbon Dioxide 28 (21-32) mmol/L Anion Gap 15.2 H (5.0-14.0) mmol/L BUN 33 H D (7-18) mg/dL Creatinine 1.5 H D (0.8-1.3) mg/dL Est Cr Clr Drug Dosing 60.23 mL/min Estimated GFR (MDRD) 50 L (>60) Glucose 256 H (74-106) mg/dL Calcium 9.3 (8.5-10.1) mg/dL C-Reactive Protein 0.31 H (0.0-0.3) mg/dL Lipase (73-393) U/L 06/17/17 Range/Units 15:53 WBC (4.5-11.0) K/uL RBC (4.30-5.90) M/uL Hgb (12.0-15.0) g/dL Hct (40.0-54.0) % MCV (80-98) fL MCH (27-31) pg MCHC (32-36) % Plt Count (150-400) K/uL Sodium (140-148) mmol/L Potassium (3.6-5.2) mmol/L Chloride (100-108) mmol/L Carbon Dioxide (21-32) mmol/L Anion Gap (5.0-14.0) mmol/L BUN (7-18) mg/dL Creatinine (0.8-1.3) mg/dL Est Cr Clr Drug Dosing mL/min Estimated GFR (MDRD) (>60) Glucose (74-106) mg/dL Calcium (8.5-10.1) mg/dL C-Reactive Protein (0.0-0.3) mg/dL Lipase 56 L (73-393) U/L Meds: Medications Generic Name Dose Route Start Last Admin Trade Name Lucho PRN Reason Stop Dose Admin Lactated Ringer's 1,000 mls @ 1,000 mls/hr 06/17/17 16:45 06/17/17 16:41 Ringers, Lactated IV 1,000 mls/hr BOLUS GT Administration Discontinued Medications Generic Name Dose Route Start Last Admin Trade Name Lucho PRN Reason Stop Dose Admin Diphenoxylate HCl/Atropine 2 tab 06/17/17 14:48 06/17/17 15:12 Lomotil 0.025-2.5 Mg PO 06/17/17 14:49 2 tab ONETIME ONE Administration Hydromorphone HCl 1 mg 06/17/17 15:32 06/17/17 15:47 Dilaudid IVPUSH 06/17/17 15:33 1 mg ONETIME ONE Administration Lactated Ringer's 1,000 mls @ 1,000 mls/hr 06/17/17 14:47 06/17/17 15:12 Ringers, Lactated IV 06/17/17 15:46 1,000 mls/hr BOLUS ONE Administration Metoclopramide HCl 10 mg 06/17/17 14:48 06/17/17 15:12 Reglan IVPUSH 06/17/17 14:49 10 mg ONETIME ONE Administration Departure - Departure Time of Disposition: 17:45 Disposition: Home, Self-Care 01 Condition: Fair Clinical Impression: Nausea, vomiting, and diarrhea, Mild dehydration, Elevated blood sugar - Discharge Information Referrals: Jeovany Jensen PA [Primary Care Provider] - Forms: ED Department Discharge - My Orders Last 24 Hours: My Active Orders 06/17/17 14:48 UA W/MICROSCOPIC [URIN] Stat 06/17/17 16:03 Orthostatic Vital Signs [RC] ASDIRECTED 06/17/17 16:45 Lactated Ringers [Ringers, Lactated] 1,000 ml IV BOLUS - Assessment/Plan Last 24 Hours: My Active Orders 06/17/17 14:48 UA W/MICROSCOPIC [URIN] Stat 06/17/17 16:03 Orthostatic Vital Signs [RC] ASDIRECTED 06/17/17 16:45 Lactated Ringers [Ringers, Lactated] 1,000 ml IV BOLUS
[2017-06-17] MEDS ORDERED: HYDROmorphone 1 MG/ML Syringe IVPUSH ONE (15:32)
[2017-06-17] MEDS ORDERED: Lactated Ringers 1,000 ML IV SCH (16:45)
== END 2017-06-17 18:12 | disposition home or self-care (01) ==
LOC: JP.ED 13:32
DX: E86.0 Dehydration (principal); R11.2 Nausea with vomiting, unspecified; R19.7 Diarrhea, unspecified; E10.65 Type 1 diabetes mellitus with hyperglycemia; E78.00 Pure hypercholesterolemia, unspecified; I10 Essential (primary) hypertension; Z88.6 Allergy status to analgesic agent; E10.21 Type 1 diabetes mellitus with diabetic nephropathy; E10.40 Type 1 diabetes mellitus with diabetic neuropathy, unspecified; Z86.14 Personal history of Methicillin resistant Staphylococcus aureus infection; Z88.8 Allergy status to other drugs, medicaments and biological substances; Z79.82 Long term (current) use of aspirin; Z87.891 Personal history of nicotine dependence
CPT/HCPCS: 36415; 80048; 83690; 85027; 86140; 96361; 96374; 96375; 99284; A9270; J1170; J2765; J7120

== ENCOUNTER 2018-08-21 16:53 | Emergency (ER) | payer SELFPAY ==
[2018-08-21] MEDS ORDERED: HYDROmorphone 0.5 MG/0.5 ML Syringe IVPUSH ONE (17:19)
[2018-08-21] MEDS ORDERED: Ondansetron 4 MG/2 ML SDV IVPUSH ONE (17:19)
--- NOTE | 2018-08-21 17:21 | EDM.PDOC ---
<Tarik Garcia - Last Filed: 08/21/18 18:15> ED HPI GENERAL MEDICAL PROBLEM - General Chief Complaint: Abdominal Pain Stated Complaint: VOMITING,ABDOMINAL PAIN Time Seen by Provider: 08/21/18 17:10 Source of Information: Reports: Patient History Limitations: Reports: No Limitations - History of Present Illness INITIAL COMMENTS - FREE TEXT/NARRATIVE: 48-year-old male with type 1 diabetes has had nausea and vomiting and abdominal cramping for the past 48 hours. No diarrhea, no fever. Just feels very weak. 2 days ago he ate some fried food which seemed to initiate the nausea and vomiting and he just can't "break it". No fever but he is chilled, no shortness of breath or headache. Onset: Sudden (Symptoms started fairly suddenly after eating fried foods 2 nights ago) Duration: Day(s): (2 days) Location: Reports: Abdomen Associated Symptoms: Reports: Loss of Appetite, Malaise, Nausea/Vomiting, Weakness. Denies: Confusion, Chest Pain, Cough, Diaphoresis Abdominal Pain Score (Numeric/FACES): 10 - Related Data Allergies Allergy/AdvReac Type Severity Reaction Status Date / Time indomethacin Allergy Confusion Verified 08/21/18 17:07 metformin Allergy Other Verified 08/21/18 17:07 Home Meds: Home Meds Aspirin [Lo-Dose Aspirin EC] 81 mg PO DAILY 08/18/15 [History] Multivitamin [Men's Multi-Vitamin] 1 mg PO DAILY 08/18/15 [History] Insulin Aspart [NovoLOG] 5 unit SUBCUT WITHMEALSANDBED 10/05/15 [History] Insulin Detemir [Levemir] 10 unit SUBCUT BEDTIME 10/05/15 [History] Simvastatin [Zocor] 20 mg PO BEDTIME 05/03/16 [History] Ondansetron [Zofran ODT] 4 mg SL Q4H PRN #12 tab.dis 02/12/17 [Rx] Acetaminophen [Tylenol] 650 mg PO Q4H PRN tablet 03/14/17 [Rx] Magnesium Oxide 400 mg PO DAILY #100 tablet 03/14/17 [Rx] Pantoprazole [ProTONIX] 40 mg PO BID #30 tab.cr 04/08/17 [Rx] Pregabalin [Lyrica] 1 tab PO TID 06/17/17 [History] Past Medical History HEENT History: Reports: Impaired Vision Cardiovascular History: Reports: High Cholesterol, Hypertension Gastrointestinal History: Reports: Chronic Diarrhea Genitourinary History: Reports: Diabetic Nephropathy Musculoskeletal History: Reports: RA Other Musculoskeletal History: . Neurological History: Reports: Neuropathy, Peripheral Psychiatric History: Reports: Anxiety Endocrine/Metabolic History: Reports: Diabetes, Type I Dermatologic History: Reports: Other (See Below) Other Dermatologic History: diabetic ulcer right foot - Infectious Disease History Infectious Disease History: Reports: Chicken Pox, MRSA - Past Surgical History Head Surgeries/Procedures: Reports: None HEENT Surgical History: Reports: None Cardiovascular Surgical History: Reports: None GI Surgical History: Reports: Colonoscopy, EGD Male Surgical History: Reports: None Endocrine Surgical History: Reports: None Neurological Surgical History: Reports: None Musculoskeletal Surgical History: Reports: Amputation, Shoulder Surgery, Other ( See Below) Other Musculoskeletal Surgeries/Procedures:: 4th, 5th toes of right foot Dermatological Surgical History: Reports: None Social & Family History - Family History Family Medical History: Noncontributory Cardiac: Reports: Cardiomyopathy Other Cardiac Family History: Father Endocrine/Metabolic: Reports: Diabetes, type II Other Endocrine/Metabolic Family History: Grandma - Tobacco Use Smoking Status *Q: Former Smoker Used Tobacco, but Quit: Yes Month/Year Tobacco Last Used: 2013 Second Hand Smoke Exposure: No - Caffeine Use Caffeine Use: Reports: Coffee Other Caffeine Use: 2 cups daily - Recreational Drug Use Recreational Drug Use: No - Living Situation & Occupation Living situation: Reports: , Alone Occupation: Employed ED ROS GENERAL - Review of Systems Review Of Systems: See Below Constitutional: Reports: Chills, Malaise, Decreased Appetite. Denies: Fever HEENT: Reports: No Symptoms. Denies: Ear Pain, Throat Pain, Vertigo Respiratory: Denies: Shortness of Breath Cardiovascular: Denies: Chest Pain GI/Abdominal: Reports: Abdominal Pain, Nausea, Vomiting. Denies: Constipation, Diarrhea : Reports: No Symptoms. Denies: Dysuria Skin: Reports: No Symptoms Neurological: Reports: Weakness. Denies: Dizziness, Headache Psychiatric: Reports: No Symptoms ED EXAM, GI/ABD - Physical Exam Exam: See Below Exam Limited By: No Limitations General Appearance: Alert, No Apparent Distress (Looks uncomfortable but not distressed, not hyperventilating) Eyes: Bilateral: Normal Appearance (No jaundice) Throat/Mouth: Other (Patient is edentulous). No: Inflammation Head: Atraumatic Neck: Supple Respiratory/Chest: Lungs Clear Cardiovascular: Regular Rate, Rhythm, Tachycardia GI/Abdominal Exam: Abnormal Bowel Sounds (Bowel sounds are hypoactive, he reacts to tenderness to palpation across the lower abdomen and right upper quadrant. No true rebound tenderness.) Extremities: No: Pedal Edema Neurological: Alert, Oriented, No Motor/Sensory Deficits Skin Exam: Warm, Dry Course - Vital Signs Last Recorded V/S: Last Vital Signs Temp 98.4 F 08/21/18 17:09 Pulse 103 H 08/21/18 21:18 Resp 17 08/21/18 17:09 BP 127/82 08/21/18 21:18 Pulse Ox 98 08/21/18 21:18 - Orders/Labs/Meds Orders: Active Orders 24 hr Category Date Time Status Sodium Chloride 0.9% [Normal Saline] 1,000 ml Med 08/21/18 17:30 Active IV ASDIRECTED Sodium Chloride 0.9% [Normal Saline] 1,000 ml Med 08/21/18 18:30 Active IV ASDIRECTED Sodium Chloride 0.9% [Normal Saline] 1,000 ml Med 08/21/18 20:30 Active IV ASDIRECTED Medication Orders Sodium Chloride (Normal Saline) 1,000 mls @ 1,000 mls/hr IV ASDIRECTED GT Last Admin: 08/21/18 17:46 Dose: 1,000 mls/hr Sodium Chloride (Normal Saline) 1,000 mls @ 1,000 mls/hr IV ASDIRECTED GT Last Admin: 08/21/18 18:43 Dose: 1,000 mls/hr Sodium Chloride (Normal Saline) 1,000 mls @ 500 mls/hr IV ASDIRECTED GT Last Admin: 08/21/18 20:50 Dose: 500 mls/hr Labs: Laboratory Tests 08/21/18 08/21/18 08/21/18 Range/Units 17:24 17:24 17:24 WBC 20.0 H (4.5-11.0) K/uL RBC 5.72 (4.30-5.90) M/uL Hgb 17.0 H (12.0-15.0) g/dL Hct 50.4 (40.0-54.0) % MCV 88 (80-98) fL MCH 30 (27-31) pg MCHC 34 (32-36) % Plt Count 266 (150-400) K/uL Neut % (Auto) 85 H (36-66) % Lymph % (Auto) 9 L (24-44) % Mclean % (Auto) 6 (2-6) % Eos % (Auto) 0 L (2-4) % Baso % (Auto) 0 (0-1) % Sodium 139 L (140-148) mmol/L Potassium 4.3 (3.6-5.2) mmol/L Chloride 98 L (100-108) mmol/L Carbon Dioxide 26 (21-32) mmol/L Anion Gap 19.3 H (5.0-14.0) mmol/L BUN 69 H D (7-18) mg/dL Creatinine 2.2 H (0.8-1.3) mg/dL Est Cr Clr Drug Dosing 40.62 mL/min Estimated GFR (MDRD) 32 L (>60) Glucose 228 H (74-106) mg/dL Calcium 9.6 (8.5-10.1) mg/dL Total Bilirubin 0.7 (0.2-1.0) mg/dL AST 19 (15-37) U/L ALT 26 (12-78) U/L Alkaline Phosphatase 81 (46-116) U/L Total Protein 8.1 (6.4-8.2) g/dL Albumin 4.4 (3.4-5.0) g/dL Globulin 3.7 H (2.3-3.5) g/dL Albumin/Globulin Ratio 1.2 (1.2-2.2) Lipase 106 (73-393) U/L Urine Color Urine Appearance Urine pH (4.5-8.0) Ur Specific [place] (1.008-1.030) Urine Protein (NEGATIVE) mg/dL Urine Glucose (UA) (NEGATIVE) mg/dL Urine Ketones (NEGATIVE) mg/dL Urine Occult Blood (NEGATIVE) Urine Nitrite (NEGAITVE) Urine Bilirubin (NEGATIVE) Urine Urobilinogen (NORMAL) mg/dL Ur Leukocyte Esterase (NEGATIVE) Urine RBC (0-5) Urine WBC (0-5) Ur Epithelial Cells Amorphous Sediment Urine Bacteria Urine Mucus Urine Other Urine Opiates Screen (NEGATIVE) Ur Oxycodone Screen (NEGATIVE) Urine Methadone Screen (NEGATIVE) Ur Propoxyphene Screen (NEGATIVE) Ur Barbiturates Screen (NEGATIVE) Ur Tricyclics Screen (NEGATIVE) Ur Phencyclidine Scrn (NEGATIVE) Ur Amphetamine Screen (NEGATIVE) U Methamphetamines Scrn (NEGATIVE) Urine MDMA Screen (NEGATIVE) U Benzodiazepines Scrn (NEGATIVE) U Cocaine Metab Screen (NEGATIVE) U Marijuana (THC) Screen (NEGATIVE) Ketones Negative (NEGATIVE) 08/21/18 08/21/18 Range/Units 18:16 18:16 WBC (4.5-11.0) K/uL RBC (4.30-5.90) M/uL Hgb (12.0-15.0) g/dL Hct (40.0-54.0) % MCV (80-98) fL MCH (27-31) pg MCHC (32-36) % Plt Count (150-400) K/uL Neut % (Auto) (36-66) % Lymph % (Auto) (24-44) % Mclean % (Auto) (2-6) % Eos % (Auto) (2-4) % Baso % (Auto) (0-1) % Sodium (140-148) mmol/L Potassium (3.6-5.2) mmol/L Chloride (100-108) mmol/L Carbon Dioxide (21-32) mmol/L Anion Gap (5.0-14.0) mmol/L BUN (7-18) mg/dL Creatinine (0.8-1.3) mg/dL Est Cr Clr Drug Dosing mL/min Estimated GFR (MDRD) (>60) Glucose (74-106) mg/dL Calcium (8.5-10.1) mg/dL Total Bilirubin (0.2-1.0) mg/dL AST (15-37) U/L ALT (12-78) U/L Alkaline Phosphatase (46-116) U/L Total Protein (6.4-8.2) g/dL Albumin (3.4-5.0) g/dL Globulin (2.3-3.5) g/dL Albumin/Globulin Ratio (1.2-2.2) Lipase (73-393) U/L Urine Color Yellow Urine Appearance Slightly cloudy Urine pH 5.0 (4.5-8.0) Ur Specific [place] 1.020 (1.008-1.030) Urine Protein 100 H (NEGATIVE) mg/dL Urine Glucose (UA) 250 H (NEGATIVE) mg/dL Urine Ketones 15 H (NEGATIVE) mg/dL Urine Occult Blood Trace (NEGATIVE) Urine Nitrite Negative (NEGAITVE) Urine Bilirubin Negative (NEGATIVE) Urine Urobilinogen Normal (NORMAL) mg/dL Ur Leukocyte Esterase Negative (NEGATIVE) Urine RBC 5-10 H (0-5) Urine WBC Not seen (0-5) Ur Epithelial Cells Not seen Amorphous Sediment Moderate Urine Bacteria Moderate Urine Mucus Moderate Urine Other See note Urine Opiates Screen Negative (NEGATIVE) Ur Oxycodone Screen Negative (NEGATIVE) Urine Methadone Screen Negative (NEGATIVE) Ur Propoxyphene Screen Negative (NEGATIVE) Ur Barbiturates Screen Negative (NEGATIVE) Ur Tricyclics Screen Negative (NEGATIVE) Ur Phencyclidine Scrn Negative (NEGATIVE) Ur Amphetamine Screen Negative (NEGATIVE) U Methamphetamines Scrn Negative (NEGATIVE) Urine MDMA Screen Negative (NEGATIVE) U Benzodiazepines Scrn Negative (NEGATIVE) U Cocaine Metab Screen Negative (NEGATIVE) U Marijuana (THC) Screen Presumptive positive H (NEGATIVE) Ketones (NEGATIVE) Meds: Medications Generic Name Dose Route Start Last Admin Trade Name Freq PRN Reason Stop Dose Admin Sodium Chloride 1,000 mls @ 1,000 mls/hr 08/21/18 17:30 08/21/18 17:46 Normal Saline IV 1,000 mls/hr ASDIRECTED GT Administration Sodium Chloride 1,000 mls @ 1,000 mls/hr 08/21/18 18:30 08/21/18 18:43 Normal Saline IV 1,000 mls/hr ASDIRECTED GT Administration Sodium Chloride 1,000 mls @ 500 mls/hr 08/21/18 20:30 08/21/18 20:50 Normal Saline IV 500 mls/hr ASDIRECTED GT Administration Discontinued Medications Generic Name Dose Route Start Last Admin Trade Name Freq PRN Reason Stop Dose Admin Fentanyl 50 mcg 08/21/18 20:20 08/21/18 20:50 Sublimaze IVPUSH 08/21/18 20:21 50 mcg ONETIME ONE Administration Hydromorphone HCl 0.5 mg 08/21/18 17:19 08/21/18 17:49 Dilaudid IVPUSH 08/21/18 17:20 0.5 mg ONETIME ONE Administration Ondansetron HCl 4 mg 08/21/18 17:19 08/21/18 17:48 Zofran IVPUSH 08/21/18 17:20 4 mg ONETIME ONE Administration Prochlorperazine Edisylate 5 mg 08/21/18 21:00 08/21/18 21:53 Compazine IVPUSH 08/21/18 21:01 5 mg ONETIME ONE Administration - Re-Assessments/Exams Free Text/Narrative Re-Assessment/Exam: 08/21/18 17:37 A UA was obtained as well as a urine drug screen. The urine appeared very concentrated and dark. An IV was started and he was bolused with 1 L of normal saline, CBC, CMP, serum ketones and lipase were obtained. He was given 0.5 mg of IV Dilaudid and 4 mg of Zofran. 08/21/18 18:15 White count was 20,000, but serum ketones were negative and glucose was 228. His creatinine was elevated at 2.2, BUN 69 and GFR 32, was obviously very volume contracted. After the medications were given the patient felt much better and the fluids were being bolus. A second liter was ordered, care turned over to Dr. Jung pending second liter. Departure - Departure Disposition: Home, Self-Care 01 Clinical Impression: Abdominal pain Qualifiers: Abdominal location: unspecified location Qualified Code(s): R10.9 - Unspecified abdominal pain - Discharge Information Instructions: Abdominal Pain, Adult, [id number] Referrals: Jeovany Jensen PA [Primary Care Provider] - Forms: ED Department Discharge Additional Instructions: Please follow-up primary care next 3-5 days for reevaluation also discussed the possibility for referral and consultation with carpentry specialist - My Orders Last 24 Hours: My Active Orders 08/21/18 20:30 Sodium Chloride 0.9% [Normal Saline] 1,000 ml IV ASDIRECTED - Assessment/Plan Last 24 Hours: My Active Orders 08/21/18 20:30 Sodium Chloride 0.9% [Normal Saline] 1,000 ml IV ASDIRECTED <Rene Jung - Last Filed: 08/21/18 23:22> Course - Re-Assessments/Exams Free Text/Narrative Re-Assessment/Exam: Took over care from Dr. alexander at 1800 patient did receive second liter of IV fluids was able to urinate however still having ongoing abdominal pain only on the right flank area requiring more pain medications elected to proceed with CT scan of abdomen and pelvis 08/21/18 20:21 Departure - Departure Time of Disposition: 23:21 Condition: Fair - Assessment/Plan Plan: Assessment Acuity = acute Site and laterality = abdominal pain Etiology = unclear etiology Manifestations = nausea vomiting Location of injury = Home Lab values = WBC elevated at 28 consistent leukocytosis creatinine elevated 2.2 consistent acute renal failure stage G IIIB glucose elevated 228 consistent hyperglycemia urinalysis reveals 250 of glucose consistent glucose area ketones were negative in the serum urine drug screen positive for cannabis CT scan describes mild fat stranding around the adrenal glands consistent with adrenalitis Plan I did review lab work he scan results with him he feels significantly improved after a couple liters of fluids and rest. Plan is follow-up primary care and discuss results a CT with possible consultation with endocrinology This note was dictated using [employer] voice recognition software please call with any questions on syntax or grammar.
[2018-08-21] MEDS ORDERED: Sodium Chloride 0.9% 1,000 ML IV SCH ×3 (17:30→20:30)
[2018-08-21] MEDS ORDERED: fentaNYL 100 MCG/2 ML SDV IVPUSH ONE (20:20)
[2018-08-21] MEDS ORDERED: Prochlorperazine 10 MG/2 ML SDV IVPUSH ONE (21:00)
[2018-08-21 21:28] VITALS: BP 127/82
--- NOTE | 2018-08-21 23:05 | CRLCT ---
INDICATION: Right-sided abdominal pain TECHNIQUE: CT abdomen and pelvis without contrast. COMPARISON: None. FINDINGS: Lower chest: Trace basilar discoid atelectasis. Liver: Normal in size and attenuation. No masses. Gallbladder and bile ducts: Status post cholecystectomy. Normal diameter common duct. Pancreas: Unremarkable. No mass or inflammation. Spleen: Normal in size. No masses. Adrenal glands: Slight fat stranding surrounding the adrenal glands without focal lesion. Kidneys: Normal in size. No masses, stones, or hydronephrosis. GI tract: The stomach is unremarkable. There are no dilated loops of large or small intestine. The appendix is seen and is unremarkable. Vasculature: Unremarkable. Pelvis: Mild prostatic enlargement. Bladder moderately distended but unremarkable. Bones: Spondylolysis L5 with 3 millimeter anterolisthesis at L5-S1. IMPRESSION: 1. Mild fat stranding surrounding the adrenal glands which can be seen in an adrenalitis. 2. Mild prostatic enlargement. 3. 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 Please note that all CT scans at this facility use dose modulation, iterative reconstruction, and/or weight-based dosing when appropriate to reduce radiation dose to as low as reasonably achievable. Dictated by Yinka Balbuena MD @ Aug 21 2018 10:56PM Signed by Dr. Yinka Balbuena @ Aug 21 2018 11:03PM
== END 2018-08-21 23:51 | disposition home or self-care (01) ==
LOC: JP.ED 16:53
DX: R10.9 Unspecified abdominal pain (principal); R11.2 Nausea with vomiting, unspecified; E10.9 Type 1 diabetes mellitus without complications; E78.00 Pure hypercholesterolemia, unspecified; I10 Essential (primary) hypertension; F41.9 Anxiety disorder, unspecified; Z88.8 Allergy status to other drugs, medicaments and biological substances; Z79.82 Long term (current) use of aspirin; Z79.4 Long term (current) use of insulin; Z87.891 Personal history of nicotine dependence; Z79.899 Other long term (current) drug therapy
CPT/HCPCS: 36415; 74176; 80053; 80305; 81001; 82009; 83690; 85025; 96361; 96374; 96375; 99284; J0780; J1170; J2405; J3010; J7030

== ENCOUNTER 2019-02-12 11:05 | Emergency (ER) | payer SELFPAY ==
[2019-02-12] MEDS ORDERED: Ondansetron 4 MG/2 ML SDV IVPUSH ONE (11:58)
[2019-02-12] MEDS ORDERED: Sodium Chloride 0.9% 10 ML Syringe FLUSH PRN ×2 (11:58→12:11)
[2019-02-12] MEDS ORDERED: Lactated Ringers 1,000 ML IV ONE ×2 (11:58→13:39)
--- NOTE | 2019-02-12 12:01 | EDM.PDOC ---
ED HPI GENERAL MEDICAL PROBLEM - General Chief Complaint: Abdominal Pain Stated Complaint: DIABETES, VOMITING Time Seen by Provider: 02/12/19 11:53 Source of Information: Reports: Patient, Old Records, RN Notes Reviewed History Limitations: Reports: No Limitations - History of Present Illness INITIAL COMMENTS - FREE TEXT/NARRATIVE: 49-year-old gentleman presents emergency department with a complaint of generalized abdominal pain, he has had nausea vomiting diarrhea pain is been going on for about 4 days he had an event similar to this about 6 months prior does have a history of cholecystectomy no fever Abdomen Pain Score (Numeric/FACES): 8 - Related Data Allergies Allergy/AdvReac Type Severity Reaction Status Date / Time indomethacin Allergy Confusion Verified 02/12/19 11:39 metformin Allergy Other Verified 02/12/19 11:39 Home Meds: Home Meds Aspirin [Lo-Dose Aspirin EC] 81 mg PO DAILY 08/18/15 [History] Multivitamin [Men's Multi-Vitamin] 1 mg PO DAILY 08/18/15 [History] Insulin Aspart [NovoLOG] 5 unit SUBCUT WITHMEALSANDBED 10/05/15 [History] Insulin Detemir [Levemir] 10 unit SUBCUT BEDTIME 10/05/15 [History] Simvastatin [Zocor] 20 mg PO BEDTIME 05/03/16 [History] Ondansetron [Zofran ODT] 4 mg SL Q4H PRN #12 tab.dis 02/12/17 [Rx] Acetaminophen [Tylenol] 650 mg PO Q4H PRN tablet 03/14/17 [Rx] Magnesium Oxide 400 mg PO DAILY #100 tablet 03/14/17 [Rx] Pantoprazole [ProTONIX] 40 mg PO BID #30 tab.cr 04/08/17 [Rx] Pregabalin [Lyrica] 1 tab PO TID PRN 06/17/17 [History] Past Medical History HEENT History: Reports: Impaired Vision Cardiovascular History: Reports: High Cholesterol, Hypertension Gastrointestinal History: Reports: Chronic Diarrhea Genitourinary History: Reports: Diabetic Nephropathy Musculoskeletal History: Reports: RA Other Musculoskeletal History: . Neurological History: Reports: Neuropathy, Peripheral Psychiatric History: Reports: Anxiety Endocrine/Metabolic History: Reports: Diabetes, Type I Dermatologic History: Reports: Other (See Below) Other Dermatologic History: diabetic ulcer right foot - Infectious Disease History Infectious Disease History: Reports: Chicken Pox, MRSA - Past Surgical History Head Surgeries/Procedures: Reports: None HEENT Surgical History: Reports: None Cardiovascular Surgical History: Reports: None GI Surgical History: Reports: Colonoscopy, EGD Male Surgical History: Reports: None Endocrine Surgical History: Reports: None Neurological Surgical History: Reports: None Musculoskeletal Surgical History: Reports: Amputation, Shoulder Surgery, Other ( See Below) Other Musculoskeletal Surgeries/Procedures:: 4th, 5th toes of right foot Dermatological Surgical History: Reports: None Social & Family History - Family History Family Medical History: Noncontributory Cardiac: Reports: Cardiomyopathy Other Cardiac Family History: Father Endocrine/Metabolic: Reports: Diabetes, type II Other Endocrine/Metabolic Family History: Grandma - Tobacco Use Smoking Status *Q: Former Smoker Used Tobacco, but Quit: Yes Month/Year Tobacco Last Used: 8 years - Caffeine Use Caffeine Use: Reports: Coffee Other Caffeine Use: 2 cups daily - Recreational Drug Use Recreational Drug Use: No - Living Situation & Occupation Living situation: Reports: , Alone Occupation: Employed ED ROS GENERAL - Review of Systems Review Of Systems: See Below Constitutional: Reports: No Symptoms. Denies: Fever HEENT: Reports: No Symptoms Respiratory: Reports: No Symptoms Cardiovascular: Reports: No Symptoms GI/Abdominal: Reports: Abdominal Pain, Diarrhea, Nausea, Vomiting : Reports: No Symptoms Musculoskeletal: Reports: No Symptoms ED EXAM, GI/ABD - Physical Exam Exam: See Below Exam Limited By: No Limitations General Appearance: Alert, WD/WN, No Apparent Distress Respiratory/Chest: No Respiratory Distress, Lungs Clear, Normal Breath Sounds, No Accessory Muscle Use, Chest Non-Tender Cardiovascular: Regular Rate, Rhythm, No Murmur GI/Abdominal Exam: Soft, No Organomegaly, No Distention, Tender (Generalized tenderness to palpation) Course - Vital Signs Last Recorded V/S: Last Vital Signs Temp 97.0 F 02/12/19 14:40 Pulse 85 02/12/19 14:40 Resp 18 02/12/19 14:40 BP 147/88 H 02/12/19 14:40 Pulse Ox 100 02/12/19 14:40 - Orders/Labs/Meds Orders: Active Orders 24 hr Category Date Time Status Peripheral IV Care [RC] . DIRECTED Care 02/12/19 11:59 Active Iopamidol [Isovue-300 (61%)] Med 02/12/19 12:15 Active 110 ml IV . DIRECTED Sodium Chloride 0.9% [Saline Flush] Med 02/12/19 11:58 Active 10 ml FLUSH ASDIRECTED PRN Sodium Chloride 0.9% [Saline Flush] Med 02/12/19 12:11 Active 10 ml FLUSH ONETIME PRN Peripheral IV Insertion Adult [OM.PC] Urgent Oth 02/12/19 11:58 Ordered Medication Orders Iopamidol (Isovue-300 (61%)) 110 ml IV . DIRECTED GT Last Admin: 02/12/19 12:46 Dose: 110 ml Sodium Chloride (Saline Flush) 10 ml FLUSH ASDIRECTED PRN PRN Reason: Keep Vein Open Last Admin: 02/12/19 12:16 Dose: 10 ml Sodium Chloride (Saline Flush) 10 ml FLUSH ONETIME PRN PRN Reason: PER RADIOLOGY PROTOCOL Last Admin: 02/12/19 12:46 Dose: 10 ml Labs: Laboratory Tests 02/12/19 02/12/19 02/12/19 Range/Units 12:08 12:08 12:08 WBC 10.2 (4.5-11.0) K/uL RBC 5.07 (4.30-5.90) M/uL Hgb 15.1 H (12.0-15.0) g/dL Hct 44.3 (40.0-54.0) % MCV 87 (80-98) fL MCH 30 (27-31) pg MCHC 34 (32-36) % Plt Count 210 (150-400) K/uL Neut % (Auto) 74 H (36-66) % Lymph % (Auto) 16 L (24-44) % Perkins % (Auto) 10 H (2-6) % Eos % (Auto) 0 L (2-4) % Baso % (Auto) 0 (0-1) % Sodium 134 L (140-148) mmol/L Potassium 3.4 L (3.6-5.2) mmol/L Chloride 96 L (100-108) mmol/L Carbon Dioxide 28 (21-32) mmol/L Anion Gap 13.4 (5.0-14.0) mmol/L BUN 32 H D (7-18) mg/dL Creatinine 1.4 H (0.8-1.3) mg/dL Est Cr Clr Drug Dosing 64.15 mL/min Estimated GFR (MDRD) 54 L (>60) Glucose 218 H (74-106) mg/dL Lactic Acid 3.2 H (0.4-2.0) mmol/L Calcium 8.3 L (8.5-10.1) mg/dL Total Bilirubin 0.8 (0.2-1.0) mg/dL AST 11 L (15-37) U/L ALT 18 (12-78) U/L Alkaline Phosphatase 73 (46-116) U/L Total Protein 6.8 (6.4-8.2) g/dL Albumin 3.6 (3.4-5.0) g/dL Globulin 3.2 (2.3-3.5) g/dL Albumin/Globulin Ratio 1.1 L (1.2-2.2) Urine Color (YELLOW) Urine Appearance (CLEAR) Urine pH (5.0-8.0) Ur Specific [place] (1.008-1.030) Urine Protein (NEGATIVE) mg/dL Urine Glucose (UA) (NEGATIVE) mg/dL Urine Ketones (NEGATIVE) mg/dL Urine Occult Blood (NEGATIVE) Urine Nitrite (NEGATIVE) Urine Bilirubin (NEGATIVE) Urine Urobilinogen (0.2-1.0) EU/dL Ur Leukocyte Esterase (NEGATIVE) Urine RBC (0-5) Urine WBC (0-5) Ur Epithelial Cells Amorphous Sediment Urine Bacteria Urine Mucus 02/12/19 Range/Units 13:17 WBC (4.5-11.0) K/uL RBC (4.30-5.90) M/uL Hgb (12.0-15.0) g/dL Hct (40.0-54.0) % MCV (80-98) fL MCH (27-31) pg MCHC (32-36) % Plt Count (150-400) K/uL Neut % (Auto) (36-66) % Lymph % (Auto) (24-44) % Perkins % (Auto) (2-6) % Eos % (Auto) (2-4) % Baso % (Auto) (0-1) % Sodium (140-148) mmol/L Potassium (3.6-5.2) mmol/L Chloride (100-108) mmol/L Carbon Dioxide (21-32) mmol/L Anion Gap (5.0-14.0) mmol/L BUN (7-18) mg/dL Creatinine (0.8-1.3) mg/dL Est Cr Clr Drug Dosing mL/min Estimated GFR (MDRD) (>60) Glucose (74-106) mg/dL Lactic Acid (0.4-2.0) mmol/L Calcium (8.5-10.1) mg/dL Total Bilirubin (0.2-1.0) mg/dL AST (15-37) U/L ALT (12-78) U/L Alkaline Phosphatase (46-116) U/L Total Protein (6.4-8.2) g/dL Albumin (3.4-5.0) g/dL Globulin (2.3-3.5) g/dL Albumin/Globulin Ratio (1.2-2.2) Urine Color Yellow (YELLOW) Urine Appearance Clear (CLEAR) Urine pH 6.5 (5.0-8.0) Ur Specific [place] 1.010 (1.008-1.030) Urine Protein Negative (NEGATIVE) mg/dL Urine Glucose (UA) Negative (NEGATIVE) mg/dL Urine Ketones Negative (NEGATIVE) mg/dL Urine Occult Blood Trace-intact H (NEGATIVE) Urine Nitrite Negative (NEGATIVE) Urine Bilirubin Negative (NEGATIVE) Urine Urobilinogen 0.2 (0.2-1.0) EU/dL Ur Leukocyte Esterase Negative (NEGATIVE) Urine RBC 0-5 (0-5) Urine WBC 0-5 (0-5) Ur Epithelial Cells Not seen Amorphous Sediment Rare Urine Bacteria Not seen Urine Mucus Not seen Meds: Medications Generic Name Dose Route Start Last Admin Trade Name Freq PRN Reason Stop Dose Admin Iopamidol 110 ml 02/12/19 12:15 02/12/19 12:46 Isovue-300 (61%) IV 110 ml . DIRECTED GT Administration Sodium Chloride 10 ml 02/12/19 11:58 02/12/19 12:16 Saline Flush FLUSH 10 ml ASDIRECTED PRN Administration Keep Vein Open Sodium Chloride 10 ml 02/12/19 12:11 02/12/19 12:46 Saline Flush FLUSH 10 ml ONETIME PRN Administration PER RADIOLOGY PROTOCOL Discontinued Medications Generic Name Dose Route Start Last Admin Trade Name Freq PRN Reason Stop Dose Admin Al Hydroxide/Mg Hydroxide 15 0 ml 02/12/19 13:53 02/12/19 14:03 ml/ Lidocaine HCl 15 ml PO 02/12/19 13:54 30 ml ONETIME ONE Administration Lactated Ringer's 1,000 mls @ 999 mls/hr 02/12/19 11:58 02/12/19 12:15 Ringers, Lactated IV 02/12/19 12:58 999 mls/hr BOLUS ONE Administration Sodium Chloride 73 mls @ 3 mls/sec 02/12/19 12:11 02/12/19 12:46 Normal Saline IV 02/12/19 12:12 3 mls/sec ONETIME ONE Administration Lactated Ringer's 1,000 mls @ 999 mls/hr 02/12/19 13:39 02/12/19 13:45 Ringers, Lactated IV 02/12/19 14:39 999 mls/hr BOLUS ONE Administration Ondansetron HCl 4 mg 02/12/19 11:58 02/12/19 12:15 Zofran IVPUSH 02/12/19 11:59 4 mg ONETIME ONE Administration Departure - Departure Time of Disposition: 16:05 Disposition: Home, Self-Care 01 Condition: Fair Clinical Impression: Gastroenteritis - Discharge Information Referrals: Christine Lopez MD [Primary Care Provider] - Forms: ED Department Discharge Additional Instructions: Continue to push fluids, please followup with your primary care provider in 3- 5 days if not better, please call return to the emergency department with worsening of symptoms. Sepsis Event Note - Evaluation Sepsis Screening Result: No Definite Risk - Focused Exam Vital Signs: Vital Signs Temp Pulse Resp BP Pulse Ox 02/12/19 14:40 97.0 F 85 18 147/88 H 100 02/12/19 11:38 99.1 F 18 144/85 H 100 02/12/19 11:27 99.1 F 107 H 18 144/85 H 100 Date Exam was Performed: 02/12/19 Time Exam was Performed: 16:03 - My Orders Last 24 Hours: My Active Orders 02/12/19 11:58 Sodium Chloride 0.9% [Saline Flush] 10 ml FLUSH ASDIRECTED PRN Peripheral IV Insertion Adult [OM.PC] Urgent 02/12/19 11:59 Peripheral IV Care [RC] . DIRECTED 02/12/19 12:11 Sodium Chloride 0.9% [Saline Flush] 10 ml FLUSH ONETIME PRN 02/12/19 12:15 Iopamidol [Isovue-300 (61%)] 110 ml IV . DIRECTED - Assessment/Plan Last 24 Hours: My Active Orders 02/12/19 11:58 Sodium Chloride 0.9% [Saline Flush] 10 ml FLUSH ASDIRECTED PRN Peripheral IV Insertion Adult [OM.PC] Urgent 02/12/19 11:59 Peripheral IV Care [RC] . DIRECTED 02/12/19 12:11 Sodium Chloride 0.9% [Saline Flush] 10 ml FLUSH ONETIME PRN 02/12/19 12:15 Iopamidol [Isovue-300 (61%)] 110 ml IV . DIRECTED Plan: Assessment Acuity = acute Site and laterality = gastroenteritis Etiology = probably viral Manifestations = nausea vomiting diarrhea Location of injury = Home Lab values = CBC unremarkable potassium low at 3.4 consistent with hypokalemia creatinine elevated 1.4 consistent with acute renal failure stage G3A, lactic acid elevated 3.2 consistent lactic acidosis probably related to dehydration, urinalysis unremarkable CT scan shows thickened colon consistent with colitis/ proctitis Plan I did review lab work CT scan results with him he will follow-up with his primary care in 3 to 5 days he had good improvement with Zofran 1 L fluid he is going to continue to push fluids, did have colonoscopy 2 years ago This note was dictated using [employer] voice recognition software please call with any questions on syntax or grammar.
[2019-02-12] MEDS ORDERED: Iopamidol 612 MG/ML 150 ML Bottle IV SCH (12:15)
[2019-02-12] MEDS ORDERED: Alum Hydrox/Mag Hydrox/Simeth 15 ML, Lidocaine 2% 15 ML PO ONE ×2 (13:53)
[2019-02-12 14:41] VITALS: BP 147/88; PULSE 85
--- NOTE | 2019-02-12 15:54 | CRLCT ---
INDICATION: Generalized abdominal pain COMPARISON: A similar study dated August 21, 2018 TECHNIQUE: CT examination of the abdomen and pelvis was performed with the uneventful intravenous administration of 110 cc of Isovue-300 while 3 mm thick axial sections were obtained from the lung bases through the pubic symphysis. Oral contrast was not administered. Please note that all CT scans at this facility use dose modulation, iterative reconstruction, and/or weight-based dosing when appropriate to reduce radiation dose to as low as reasonably achievable. FINDINGS: The lung bases as visualized appear normal. The heart size is normal at the lung bases The liver is normal in size and configuration without focal mass or biliary ductal dilatation. The gallbladder surgically absent Spleen, kidneys, pancreas and adrenal glands appear normal. There is no free fluid or adenopathy. There are degenerative changes of the spine. A grade 1 spondylolytic spondylolisthesis of L5 on S1 is re- demonstrated. There is diverticulosis but there is no evidence of acute diverticulitis. The appendix is well seen and appears normal. There is no small bowel obstruction. There is wall thickening without significant surrounding inflammatory change of a portion of the cecum, ascending colon, right lateral transverse colon, descending colon and rectosigmoid. The findings are most consistent with colitis and proctitis. No pneumatosis, free air or collection The prostate is enlarged IMPRESSION: 1. Findings consistent with colitis and proctitis. This appears relatively mild but is a new finding when compared to the prior examination. 2. Additional incidental findings as described above all unchanged since August 21, 2018 I discussed the above findings with Officer Rene at 3:45 p.m. on February 12, [address] all [address] scans at this facility use dose modulation, iterative reconstruction, and/or weight-based dosing when appropriate to reduce radiation dose to as low as reasonably achievable. Dictated by Manfred Mesa MD @ Feb 12 2019 3:43PM Signed by Dr. Manfred Mesa @ Feb 12 2019 3:52PM
== END 2019-02-12 16:27 | disposition home or self-care (01) ==
LOC: JP.ED 11:05
DX: K52.9 Noninfective gastroenteritis and colitis, unspecified (principal); I10 Essential (primary) hypertension; E10.42 Type 1 diabetes mellitus with diabetic polyneuropathy; E78.00 Pure hypercholesterolemia, unspecified; Z79.4 Long term (current) use of insulin; Z79.82 Long term (current) use of aspirin
CPT/HCPCS: 36415; 74177; 80053; 81001; 83605; 85025; 96361; 96374; 99283; 99284; A9270; J2405; J7050; J7120; Q9967

== ENCOUNTER 2020-02-23 15:22 | Emergency (ER) | payer SELFPAY ==
--- NOTE | 2020-02-23 15:52 | EDM.PDOC ---
ED HPI GENERAL MEDICAL PROBLEM - General Chief Complaint: Diabetic Complaint Stated Complaint: DIABETES/VOMITTING Time Seen by Provider: 02/23/20 15:52 Source of Information: Reports: Patient History Limitations: Reports: No Limitations - History of Present Illness INITIAL COMMENTS - FREE TEXT/NARRATIVE: 50-year-old male, type I diabetic for the past 20 years, has had persistent nausea and vomiting for the past 48 hours. He is concerned that he may be in ketoacidosis, he cannot keep anything down and he has not checked his glucose but it feels "high". He had abdominal cramping yesterday but that is improved. Onset: Gradual Duration: Day(s): (Nausea and vomiting for 2 days) Location: Reports: Abdomen (Had some abdominal cramps yesterday, those have improved) Associated Symptoms: Reports: Loss of Appetite, Malaise, Nausea/Vomiting. Denies: Fever/Chills Foot Pain Score (Numeric/FACES): 4 - Related Data Allergies Allergy/AdvReac Type Severity Reaction Status Date / Time indomethacin Allergy Confusion Verified 02/23/20 15:35 metformin Allergy Other Verified 02/23/20 15:35 Home Meds: Home Meds Aspirin [Lo-Dose Aspirin EC] 81 mg PO DAILY 08/18/15 [History] Multivitamin [Men's Multi-Vitamin] 1 mg PO DAILY 08/18/15 [History] Insulin Aspart [NovoLOG] 5 unit SUBCUT WITHMEALSANDBED 10/05/15 [History] Insulin Detemir [Levemir] 10 unit SUBCUT BEDTIME 10/05/15 [History] Simvastatin [Zocor] 20 mg PO BEDTIME 05/03/16 [History] Ondansetron [Zofran ODT] 4 mg SL Q4H PRN #12 tab.dis 02/12/17 [Rx] Acetaminophen [Tylenol] 650 mg PO Q4H PRN tablet 03/14/17 [Rx] Magnesium Oxide 400 mg PO DAILY #100 tablet 03/14/17 [Rx] Pantoprazole [ProTONIX] 40 mg PO BID #30 tab.cr 04/08/17 [Rx] Pregabalin [Lyrica] 1 tab PO TID PRN 06/17/17 [History] Past Medical History HEENT History: Reports: Impaired Vision Cardiovascular History: Reports: High Cholesterol, Hypertension Gastrointestinal History: Reports: Chronic Diarrhea Genitourinary History: Reports: Diabetic Nephropathy Musculoskeletal History: Reports: RA Other Musculoskeletal History: . Neurological History: Reports: Neuropathy, Peripheral Psychiatric History: Reports: Anxiety Endocrine/Metabolic History: Reports: Diabetes, Type I Dermatologic History: Reports: Other (See Below) Other Dermatologic History: diabetic ulcer right foot - Infectious Disease History Infectious Disease History: Reports: Chicken Pox, MRSA - Past Surgical History Head Surgeries/Procedures: Reports: None HEENT Surgical History: Reports: None, Cataract Surgery Cardiovascular Surgical History: Reports: None GI Surgical History: Reports: Colonoscopy, EGD Male Surgical History: Reports: None Endocrine Surgical History: Reports: None Neurological Surgical History: Reports: None Musculoskeletal Surgical History: Reports: Amputation, Shoulder Surgery, Other (See Below) Other Musculoskeletal Surgeries/Procedures:: 4th, 5th toes of right foot Dermatological Surgical History: Reports: None Social & Family History - Family History Family Medical History: No Pertinent Family History Cardiac: Reports: Cardiomyopathy Other Cardiac Family History: Father Endocrine/Metabolic: Reports: Diabetes, type II Other Endocrine/Metabolic Family History: Grandma - Tobacco Use Tobacco Use Status *Q: Former Tobacco User Years of Tobacco use: 20 Packs/Tins Daily: 1 Used Tobacco, but Quit: Yes Month/Year Tobacco Last Used: 9 years ago Second Hand Smoke Exposure: No - Caffeine Use Caffeine Use: Reports: Coffee Other Caffeine Use: 2 cups daily - Alcohol Use Days Per Week of Alcohol Use: 0 - Recreational Drug Use Recreational Drug Use: No - Living Situation & Occupation Living situation: Reports: , Alone Occupation: Employed ED ROS GENERAL - Review of Systems Review Of Systems: See Below Constitutional: Reports: Malaise. Denies: Fever, Chills HEENT: Reports: No Symptoms Respiratory: Denies: Shortness of Breath Cardiovascular: Denies: Chest Pain GI/Abdominal: Reports: Abdominal Pain, Nausea, Vomiting. Denies: Diarrhea Skin: Reports: No Symptoms Neurological: Reports: Dizziness, Weakness. Denies: Headache Psychiatric: Reports: No Symptoms ED EXAM GENERAL NO PERIP PULSE - Physical Exam Exam: See Below Exam Limited By: No Limitations General Appearance: Alert, No Apparent Distress (Looks uncomfortable but not distressed) Eye Exam: Bilateral Eye: Normal Inspection (No jaundice) Throat/Mouth: Normal Inspection (Mucous membranes do not look dry) Head: Atraumatic Respiratory/Chest: No Respiratory Distress, Lungs Clear Cardiovascular: Regular Rate, Rhythm, Tachycardia (Mild tachycardia) GI/Abdominal: Normal Bowel Sounds, Soft, Non-Tender Neurological: Alert, Oriented Psychiatric: Anxious Skin Exam: Warm, Dry Course - Vital Signs Last Recorded V/S: Last Vital Signs Temp 98 F 02/23/20 15:52 Pulse 104 H 02/23/20 19:33 Resp 17 02/23/20 19:33 BP 147/94 H 02/23/20 19:33 Pulse Ox 97 02/23/20 19:33 - Orders/Labs/Meds Labs: Laboratory Tests 02/23/20 02/23/20 02/23/20 Range/Units 16:15 16:16 16:16 WBC 20.4 H (4.5-11.0) K/uL RBC 5.09 (4.30-5.90) M/uL Hgb 14.5 (12.0-15.0) g/dL Hct 45.2 (40.0-54.0) % MCV 89 (80-98) fL MCH 29 (27-31) pg MCHC 32 (32-36) % Plt Count 340 (150-400) K/uL Neut % (Auto) 92 H (36-66) % Lymph % (Auto) 4 L (24-44) % [place] % (Auto) 4 (2-6) % Eos % (Auto) 0 L (2-4) % Baso % (Auto) 0 (0-1) % Puncture Site Lt radial ABG pH 7.419 (7.350-7.450) ABG pCO2 33.7 L (35.0-42.0) mmHg ABG pO2 69.9 L (75.0-100.0) mmHg ABG HCO3 21.4 L (22.0-26.0) mmol/L ABG Total CO2 18.6 L (23.0-27.0) mmol/L ABG O2 Saturation 92.8 L (95.0-98.0) % ABG O2 Content 19.1 (15.0-23.0) %vol ABG Base Excess -1.8 mm/L ABG Hemoglobin 15.0 (13.5-18.0) g/dL ABG Oxyhemoglobin 90.5 % ABG Carboxyhemoglobin 1.5 (0.0-1.6) % ABG Methemoglobin 1.0 % Marlon Test Pass O2 Delivery Device Room air Sodium 132 L (140-148) mmol/L Potassium 4.4 (3.6-5.2) mmol/L Chloride 95 L (100-108) mmol/L Carbon Dioxide 22 (21-32) mmol/L Anion Gap 19.4 H (5.0-14.0) mmol/L BUN 54 H D (7-18) mg/dL Creatinine 2.9 H D (0.8-1.3) mg/dL Est Cr Clr Drug Dosing 30.14 mL/min Estimated GFR (MDRD) 23 L (>60) Glucose 326 H (74-106) mg/dL POC Glucose (74-106) MG/DL Calcium 9.2 (8.5-10.1) mg/dL Total Bilirubin 0.7 (0.2-1.0) mg/dL AST 28 D (15-37) U/L ALT 31 (12-78) U/L Alkaline Phosphatase 92 (46-116) U/L Total Protein 8.3 H (6.4-8.2) g/dL Albumin 3.7 (3.4-5.0) g/dL Globulin 4.6 H (2.3-3.5) g/dL Albumin/Globulin Ratio 0.8 L (1.2-2.2) Lipase (73-393) U/L Ketones (NEGATIVE) 02/23/20 02/23/20 02/23/20 Range/Units 16:16 16:16 18:26 WBC (4.5-11.0) K/uL RBC (4.30-5.90) M/uL Hgb (12.0-15.0) g/dL Hct (40.0-54.0) % MCV (80-98) fL MCH (27-31) pg MCHC (32-36) % Plt Count (150-400) K/uL Neut % (Auto) (36-66) % Lymph % (Auto) (24-44) % [place] % (Auto) (2-6) % Eos % (Auto) (2-4) % Baso % (Auto) (0-1) % Puncture Site ABG pH (7.350-7.450) ABG pCO2 (35.0-42.0) mmHg ABG pO2 (75.0-100.0) mmHg ABG HCO3 (22.0-26.0) mmol/L ABG Total CO2 (23.0-27.0) mmol/L ABG O2 Saturation (95.0-98.0) % ABG O2 Content (15.0-23.0) %vol ABG Base Excess mm/L ABG Hemoglobin (13.5-18.0) g/dL ABG Oxyhemoglobin % ABG Carboxyhemoglobin (0.0-1.6) % ABG Methemoglobin % Marlon Test O2 Delivery Device Sodium (140-148) mmol/L Potassium (3.6-5.2) mmol/L Chloride (100-108) mmol/L Carbon Dioxide (21-32) mmol/L Anion Gap (5.0-14.0) mmol/L BUN (7-18) mg/dL Creatinine (0.8-1.3) mg/dL Est Cr Clr Drug Dosing mL/min Estimated GFR (MDRD) (>60) Glucose (74-106) mg/dL POC Glucose 215 H (74-106) MG/DL Calcium (8.5-10.1) mg/dL Total Bilirubin (0.2-1.0) mg/dL AST (15-37) U/L ALT (12-78) U/L Alkaline Phosphatase (46-116) U/L Total Protein (6.4-8.2) g/dL Albumin (3.4-5.0) g/dL Globulin (2.3-3.5) g/dL Albumin/Globulin Ratio (1.2-2.2) Lipase 87 (73-393) U/L Ketones Negative (NEGATIVE) Meds: Medications Discontinued Medications Generic Name Dose Route Start Last Admin Trade Name Freq PRN Reason Stop Dose Admin Sodium Chloride 1,000 mls @ 1,000 mls/hr 02/23/20 16:00 02/23/20 16:16 Normal Saline IV 1,000 mls/hr ASDIRECTED GT Administration Sodium Chloride 1,000 mls @ 1,000 mls/hr 02/23/20 17:30 02/23/20 17:21 Normal Saline IV 1,000 mls/hr ASDIRECTED GT Administration Insulin Human Regular 8 unit 02/23/20 16:57 02/23/20 17:19 Humulin R IVPUSH 02/23/20 16:58 8 units ONETIME ONE Administration Lorazepam 1 mg 02/23/20 18:41 02/23/20 18:50 Ativan IVPUSH 02/23/20 18:42 1 mg ONETIME ONE Administration Metoclopramide HCl 5 mg 02/23/20 19:43 02/23/20 19:51 Reglan IVPUSH 02/23/20 19:44 5 mg ONETIME ONE Administration Ondansetron HCl 4 mg 02/23/20 15:59 02/23/20 16:20 Zofran IVPUSH 02/23/20 16:00 4 mg ONETIME ONE Administration - Re-Assessments/Exams Free Text/Narrative Re-Assessment/Exam: 02/23/20 16:59 1 L normal saline was bolused, serum ketones, ABGs, CBC and CMP were obtained. pH was normal, serum ketones were negative. White count was 20,000, creatinine 2.9 and GFR only 23. Glucose 326, patient was given 8 units of regular insulin. He may need 2 L of fluid. 02/23/20 18:31 Patient felt better after the fluid, his blood glucose on discharge was 215. He was discharged with 5 doses of Zofran to use as needed for nausea and vomiting over the next 2 days and was encouraged to follow his glucose closely and increase diet and activity as tolerated. 02/23/20 19:29 Just prior to discharge the patient redeveloped some nausea and became very anxious, started hyperventilating and needed 1 mg of IV Ativan to calm down. He was observed for an additional hour. 02/23/20 20:37 After the Ativan the patient only moderately improved, her lipase was ordered and is normal. He was given 5 mg of IV Reglan. 20 minutes later he was feeling much better and was discharged with nausea and vomiting syndrome. Departure - Departure Time of Disposition: 20:14 Disposition: Home, Self-Care 01 Clinical Impression: Hyperglycemia Nausea and vomiting Qualifiers: Vomiting type: unspecified Vomiting Intractability: non-intractable Qualified Code(s): R11.2 - Nausea with vomiting, unspecified Type 1 diabetes mellitus Qualifiers: Diabetes mellitus complication status: with neurologic complications Diabetes mellitus complication detail: with polyneuropathy Qualified Code(s): E10.42 - Type 1 diabetes mellitus with diabetic polyneuropathy - Discharge Information Instructions: Nausea and Vomiting, Adult, [id number] Referrals: PCP,None [Primary Care Provider] - Forms: ED Department Discharge Care Plan Goals: Continue your current medications, follow your glucose closely for the next couple of days and use Zofran for any recurring nausea and vomiting. Return if worsening despite treatment, otherwise increase diet and activity slowly over the next few days and consider rechecking in 3 to 4 days if not improved satisfactorily. Sepsis Event Note (ED) - Focused Exam Vital Signs: Vital Signs Temp Pulse Resp BP Pulse Ox 02/23/20 19:33 104 H 17 147/94 H 97 02/23/20 18:20 98 152/95 H 99 02/23/20 17:38 97 140/96 H 96 02/23/20 15:52 98 F 110 H 28 H 164/90 H 98 02/23/20 15:39 98 F 110 H 28 H 164/90 H 98
[2020-02-23] MEDS ORDERED: Ondansetron 4 MG/2 ML SDV IVPUSH ONE (15:59)
[2020-02-23] MEDS ORDERED: Sodium Chloride 0.9% 1,000 ML IV SCH ×2 (16:00→17:30)
[2020-02-23] MEDS ORDERED: Insulin Regular, Human 100 Units/ML 3 ML Vial IVPUSH ONE (16:57)
[2020-02-23] MEDS ORDERED: LORazepam 2 MG/ML SDV IVPUSH ONE (18:41)
[2020-02-23 19:34] VITALS: BP 147/94; PULSE 104
[2020-02-23] MEDS ORDERED: Metoclopramide 10 MG/2 ML SDV IVPUSH ONE (19:43)
== END 2020-02-23 20:15 | disposition home or self-care (01) ==
LOC: JP.ED 15:22
DX: E10.42 Type 1 diabetes mellitus with diabetic polyneuropathy (principal); E10.65 Type 1 diabetes mellitus with hyperglycemia; I10 Essential (primary) hypertension; E78.00 Pure hypercholesterolemia, unspecified; E10.21 Type 1 diabetes mellitus with diabetic nephropathy; M06.9 Rheumatoid arthritis, unspecified; Z87.891 Personal history of nicotine dependence; Z88.6 Allergy status to analgesic agent; Z88.8 Allergy status to other drugs, medicaments and biological substances; Z79.82 Long term (current) use of aspirin; Z79.899 Other long term (current) drug therapy
CPT/HCPCS: 36415; 36600; 80053; 82009; 82803; 82962; 83690; 85025; 96374; 96375; 99284; J1815; J2060; J2405; J2765; J7030

== ENCOUNTER 2020-11-13 12:52 | Emergency (ER) | payer MEDICAID ==
[2020-11-13 13:20] VITALS: PULSE 105
[2020-11-13] MEDS ORDERED: Sodium Chloride 0.9% 10 ML Syringe FLUSH PRN (14:23)
[2020-11-13] MEDS ORDERED: Lactated Ringers 1,000 ML IV ONE (14:23)
[2020-11-13] MEDS ORDERED: LORazepam 2 MG/ML SDV IVPUSH ONE ×2 (14:23→16:18)
--- NOTE | 2020-11-13 14:25 | EDM.PDOC ---
ED HPI GENERAL MEDICAL PROBLEM - General Chief Complaint: Abdominal Pain Stated Complaint: WEAK,BLOOD SUGAR LOW,HICCUPS,DRY HEAVING Time Seen by Provider: 11/13/20 14:01 Source of Information: Reports: Patient, Family, Old Records, RN Notes Reviewed History Limitations: Reports: No Limitations - History of Present Illness INITIAL COMMENTS - FREE TEXT/NARRATIVE: 50-year-old gentleman presents emergency department day complaint of nausea and vomiting abdominal pain and poor blood sugar control he does have a history of diabetes mellitus type 2 as well as significant history of gastroparesis thought to be related to his diabetes. He states this has been going on for the last for 5 days he did get a little break but then it started up again predominantly nausea vomiting abdominal pain. Abdomen Pain Score (Numeric/FACES): 8 - Related Data Allergies Allergy/AdvReac Type Severity Reaction Status Date / Time indomethacin Allergy Intermediate Confusion Verified 11/13/20 13:12 metformin Allergy Unknown Other Verified 11/13/20 13:12 Home Meds: Home Meds Aspirin [Lo-Dose Aspirin EC] 81 mg PO DAILY 08/18/15 [History] Multivitamin [Men's Multi-Vitamin] 1 mg PO DAILY 08/18/15 [History] Insulin Aspart [NovoLOG] 5 unit SUBCUT WITHMEALSANDBED 10/05/15 [History] Insulin Detemir [Levemir] 10 unit SUBCUT BEDTIME 10/05/15 [History] Simvastatin [Zocor] 20 mg PO BEDTIME 05/03/16 [History] Ondansetron [Zofran ODT] 4 mg SL Q4H PRN #12 tab.dis 02/12/17 [Rx] Acetaminophen [Tylenol] 650 mg PO Q4H PRN tablet 03/14/17 [Rx] Magnesium Oxide 400 mg PO DAILY #100 tablet 03/14/17 [Rx] Pantoprazole [ProTONIX] 40 mg PO BID #30 tab.cr 04/08/17 [Rx] Pregabalin [Lyrica] 1 tab PO TID PRN 06/17/17 [History] Past Medical History HEENT History: Reports: Impaired Vision Cardiovascular History: Reports: High Cholesterol, Hypertension Gastrointestinal History: Reports: Chronic Diarrhea Genitourinary History: Reports: Diabetic Nephropathy Musculoskeletal History: Reports: RA Other Musculoskeletal History: . 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 Who Manages Your Pump: Patient (Self) Basal Rate (Units/hr): 0.42 Do You Give Correction Boluses or Sliding Scale: No Dermatologic History: Reports: Other (See Below) Other Dermatologic History: diabetic ulcer right foot - Infectious Disease History Infectious Disease History: Reports: Chicken Pox, MRSA - Past Surgical History Head Surgeries/Procedures: Reports: None HEENT Surgical History: Reports: None, Cataract Surgery Cardiovascular Surgical History: Reports: None GI Surgical History: Reports: Colonoscopy, EGD Male Surgical History: Reports: None Endocrine Surgical History: Reports: None Neurological Surgical History: Reports: None Musculoskeletal Surgical History: Reports: Amputation, Shoulder Surgery, Other (See Below) Other Musculoskeletal Surgeries/Procedures:: 4th, 5th toes of right foot Dermatological Surgical History: Reports: None Social & Family History - Family History Family Medical History: No Pertinent Family History Cardiac: Reports: Cardiomyopathy Other Cardiac Family History: Father Endocrine/Metabolic: Reports: Diabetes, type II Other Endocrine/Metabolic Family History: Grandma - Tobacco Use Tobacco Use Status *Q: Never Tobacco User - Caffeine Use Caffeine Use: Reports: Coffee Other Caffeine Use: 2 cups daily - Living Situation & Occupation Living situation: Reports: , Alone Occupation: Employed ED ROS GENERAL - Review of Systems Review Of Systems: See Below Constitutional: Denies: Fever, Chills HEENT: Reports: No Symptoms Respiratory: Reports: No Symptoms Cardiovascular: Reports: No Symptoms GI/Abdominal: Reports: Abdominal Pain, Diarrhea, Flatus, Nausea, Vomiting : Reports: No Symptoms ED EXAM, GI/ABD - Physical Exam Exam: See Below Exam Limited By: No Limitations General Appearance: Alert, WD/WN, No Apparent Distress Respiratory/Chest: No Respiratory Distress, Lungs Clear, Normal Breath Sounds, No Accessory Muscle Use, Chest Non-Tender Cardiovascular: Regular Rate, Rhythm, No Murmur GI/Abdominal Exam: Normal Bowel Sounds, Soft, Non-Tender, No Distention, No Abnormal Bruit Course - Vital Signs Last Recorded V/S: Last Vital Signs Temp 97.7 F 11/13/20 13:18 Pulse 105 H 11/13/20 13:18 Resp 20 11/13/20 13:18 BP 220/125 H 11/13/20 13:18 Pulse Ox 99 11/13/20 13:18 - Orders/Labs/Meds Orders: Active Orders 24 hr Category Date Time Status Peripheral IV Care [RC] . DIRECTED Care 11/13/20 14:23 Active Sodium Chloride 0.9% [Saline Flush] Med 11/13/20 14:23 Active 10 ml FLUSH ASDIRECTED PRN Peripheral IV Insertion Adult [OM.PC] Urgent Oth 11/13/20 14:23 Ordered Medication Orders Sodium Chloride (Sodium Chloride 0.9% 10 Ml Syringe) 10 ml FLUSH ASDIRECTED PRN PRN Reason: Keep Vein Open Last Admin: 11/13/20 15:01 Dose: 10 ml Documented by: [id number] Labs: Laboratory Tests 11/13/20 11/13/20 11/13/20 Range/Units 14:38 14:38 14:38 WBC 18.5 H (4.5-11.0) K/uL RBC 5.58 (4.30-5.90) M/uL Hgb 16.1 H (12.0-15.0) g/dL Hct 47.2 (40.0-54.0) % MCV 85 (80-98) fL MCH 29 (27-31) pg MCHC 34 (32-36) % Plt Count 298 (150-400) K/uL Neut % (Auto) 87.7 H (36-66) % Lymph % (Auto) 7.0 L (24-44) % [place] % (Auto) 5.1 (2-6) % Eos % (Auto) 0.1 L (2-4) % Baso % (Auto) 0.1 (0-1) % Sodium 132 L (140-148) mmol/L Potassium 3.9 (3.6-5.2) mmol/L Chloride 96 L (100-108) mmol/L Carbon Dioxide 24 (21-32) mmol/L Anion Gap 15.9 H (5.0-14.0) mmol/L BUN 40 H (7-18) mg/dL Creatinine 1.8 H (0.8-1.3) mg/dL Est Cr Clr Drug Dosing 48.55 mL/min Estimated GFR (MDRD) 40 L (>60) Glucose 220 H (74-106) mg/dL Lactic Acid 1.3 (0.4-2.0) mmol/L Calcium 9.4 (8.5-10.1) mg/dL Total Bilirubin 0.6 (0.2-1.0) mg/dL AST 16 (15-37) U/L ALT 24 (12-78) U/L Alkaline Phosphatase 102 (46-116) U/L Total Protein 7.9 (6.4-8.2) g/dL Albumin 4.0 (3.4-5.0) g/dL Globulin 3.9 H (2.3-3.5) g/dL Albumin/Globulin Ratio 1.0 L (1.2-2.2) Meds: Medications Generic Name Dose Route Start Last Admin Trade Name Freq PRN Reason Stop Dose Admin Sodium Chloride 10 ml 11/13/20 14:23 11/13/20 15:01 Sodium Chloride 0.9% 10 Ml Syringe FLUSH 10 ml ASDIRECTED PRN Administration Keep Vein Open Discontinued Medications Generic Name Dose Route Start Last Admin Trade Name Freq PRN Reason Stop Dose Admin Lactated Ringer's 1,000 mls @ 999 mls/hr 11/13/20 14:23 11/13/20 14:53 Ringers, Lactated IV 11/13/20 15:23 999 mls/hr BOLUS ONE Administration Lorazepam 1 mg 11/13/20 14:23 11/13/20 14:58 Lorazepam 2 Mg/Ml Sdv IVPUSH 11/13/20 14:24 1 mg ONETIME ONE Administration Departure - Departure Time of Disposition: 16:05 Disposition: Home, Self-Care 01 Condition: Fair Clinical Impression: Gastroparesis due to DM - Discharge Information Instructions: Gastroparesis Referrals: Dora Powell DO [Primary Care Provider] - Forms: ED Department Discharge Additional Instructions: Continue with your regular medications, please followup with your primary care provider in 3-5 days if not better, please call return to the emergency department with worsening of symptoms. Sepsis Event Note (ED) - Evaluation Sepsis Screening Result: No Definite Risk - Focused Exam Vital Signs: Vital Signs Temp Pulse Resp BP Pulse Ox 11/13/20 13:18 97.7 F 105 H 20 220/125 H 99 - My Orders Last 24 Hours: My Active Orders 11/13/20 14:23 Peripheral IV Care [RC] . DIRECTED Sodium Chloride 0.9% [Saline Flush] 10 ml FLUSH ASDIRECTED PRN Peripheral IV Insertion Adult [OM.PC] Urgent - Assessment/Plan Last 24 Hours: My Active Orders 11/13/20 14:23 Peripheral IV Care [RC] . DIRECTED Sodium Chloride 0.9% [Saline Flush] 10 ml FLUSH ASDIRECTED PRN Peripheral IV Insertion Adult [OM.PC] Urgent Plan: Assessment Acuity = acute Site and laterality = gastroparesis complicated gentleman with diabetes mellitus type 2 Etiology = probably related to blood sugar control Manifestations = none Location of injury = Home Lab values = WBC elevated 18.5 consistent leukocytosis, creatinine elevated with 1.8 consistent chronic renal failure stage G3 a Plan Good improvement 1 L fluids 1 mg Ativan he is can follow-up with his primary care for further evaluation This note was dictated using [employer] voice recognition software please call with any questions on syntax or grammar.
[2020-11-13 16:36] VITALS: BP 187/98
== END 2020-11-13 16:46 | disposition home or self-care (01) ==
LOC: JP.ED 12:52
DX: E10.43 Type 1 diabetes mellitus with diabetic autonomic (poly)neuropathy (principal); K31.84 Gastroparesis; E78.00 Pure hypercholesterolemia, unspecified; I10 Essential (primary) hypertension; E10.42 Type 1 diabetes mellitus with diabetic polyneuropathy; E10.21 Type 1 diabetes mellitus with diabetic nephropathy; M06.9 Rheumatoid arthritis, unspecified; Z88.8 Allergy status to other drugs, medicaments and biological substances; Z79.82 Long term (current) use of aspirin; Z79.899 Other long term (current) drug therapy
CPT/HCPCS: 36415; 80053; 83605; 85025; 96374; 96376; 99284; J2060; J7120

== ENCOUNTER 2020-12-05 15:08 | Emergency (ER) | payer MEDICAID ==
[2020-12-05] MEDS ORDERED: Metoclopramide 10 MG/2 ML SDV IVPUSH ONE (15:34)
[2020-12-05] MEDS ORDERED: Sodium Chloride 0.9% 10 ML Syringe FLUSH PRN (15:34)
[2020-12-05] MEDS ORDERED: LORazepam 2 MG/ML SDV IVPUSH ONE (15:42)
--- NOTE | 2020-12-05 15:45 | EDM.PDOC ---
ED HPI GENERAL MEDICAL PROBLEM - General Chief Complaint: Gastrointestinal Problem Stated Complaint: NAUSEA, VOMITING Time Seen by Provider: 12/05/20 15:30 Source of Information: Reports: Patient, Old Records History Limitations: Reports: No Limitations - History of Present Illness INITIAL COMMENTS - FREE TEXT/NARRATIVE: 50 yo male diabetic with a hx of gastroparesis presents with nausea, vomiting and elevated BS. Says his sx's are like his prior episodes of gastroparesis. No fever. Has had some loose stools which is typical for him. He is dizzy with standing. He told nursing that he ran out of his insulin and has not been taking it as he is between insurances and so he would have to pay out of pocket for it. Onset: Gradual Onset Date: 12/04/20 Duration: Day(s): (1+), Getting Worse Location: Reports: Abdomen Quality: Reports: Other (no abd pain) Improves with: Reports: None Worsens with: Reports: Other (time) Associated Symptoms: Reports: Loss of Appetite, Nausea/Vomiting, Other (diarrhea). Denies: Cough, Diaphoresis, Fever/Chills, Shortness of Breath Treatments LUMBER TRIMMER: Reports: Other (see below) (zofran ODT) - Related Data Allergies Allergy/AdvReac Type Severity Reaction Status Date / Time indomethacin Allergy Intermediate Confusion Verified 12/05/20 15:42 metformin Allergy Unknown Other Verified 12/05/20 15:42 Home Meds: Home Meds Aspirin [Lo-Dose Aspirin EC] 81 mg PO DAILY 08/18/15 [History] Multivitamin [Men's Multi-Vitamin] 1 mg PO DAILY 08/18/15 [History] Simvastatin [Zocor] 20 mg PO BEDTIME 05/03/16 [History] Ondansetron [Zofran ODT] 4 mg SL Q4H PRN #12 tab.dis 02/12/17 [Rx] Acetaminophen [Tylenol] 650 mg PO Q4H PRN tablet 03/14/17 [Rx] Magnesium Oxide 400 mg PO DAILY #100 tablet 03/14/17 [Rx] Pantoprazole [ProTONIX] 40 mg PO BID #30 tab.cr 04/08/17 [Rx] Pregabalin [Lyrica] 1 tab PO TID PRN 06/17/17 [History] Past Medical History HEENT History: Reports: Impaired Vision Cardiovascular History: Reports: High Cholesterol, Hypertension Gastrointestinal History: Reports: Chronic Diarrhea Genitourinary History: Reports: Diabetic Nephropathy Musculoskeletal History: Reports: RA Other Musculoskeletal History: . 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 Dermatologic History: Reports: Other (See Below) Other Dermatologic History: diabetic ulcer right foot - Infectious Disease History Infectious Disease History: Reports: Chicken Pox, MRSA - Past Surgical History Head Surgeries/Procedures: Reports: None HEENT Surgical History: Reports: None, Cataract Surgery Cardiovascular Surgical History: Reports: None GI Surgical History: Reports: Colonoscopy, EGD Male Surgical History: Reports: None Endocrine Surgical History: Reports: None Neurological Surgical History: Reports: None Musculoskeletal Surgical History: Reports: Amputation, Shoulder Surgery, Other (See Below) Other Musculoskeletal Surgeries/Procedures:: 4th, 5th toes of right foot Dermatological Surgical History: Reports: None Social & Family History - Family History Family Medical History: No Pertinent Family History Cardiac: Reports: Cardiomyopathy Other Cardiac Family History: Father Endocrine/Metabolic: Reports: Diabetes, type II Other Endocrine/Metabolic Family History: Grandma - Caffeine Use Caffeine Use: Reports: Coffee Other Caffeine Use: 2 cups daily - Living Situation & Occupation Living situation: Reports: , Alone Occupation: Employed ED ROS GENERAL - Review of Systems Review Of Systems: See Below Constitutional: Reports: Malaise, Decreased Appetite HEENT: Reports: No Symptoms Respiratory: Reports: No Symptoms Cardiovascular: Reports: Lightheadedness Endocrine: Reports: High Glucose GI/Abdominal: Reports: Diarrhea, Nausea, Vomiting. Denies: Black Stool, Bloody Stool, Hematemesis, Hematochezia, Melena : Reports: No Symptoms Musculoskeletal: Reports: No Symptoms Skin: Reports: No Symptoms Neurological: Reports: No Symptoms Psychiatric: Reports: No Symptoms ED EXAM, GI/ABD - Physical Exam Exam: See Below Exam Limited By: No Limitations General Appearance: Alert, WD/WN, No Apparent Distress Eyes: Bilateral: Normal Appearance Ears: Normal External Exam, Normal Canal, Hearing Grossly Normal Nose: Normal Inspection, No Blood Throat/Mouth: Normal Inspection, Normal Lips, Normal Oropharynx, Normal Voice, No Airway Compromise Head: Atraumatic, Normocephalic Neck: Normal Inspection Respiratory/Chest: No Respiratory Distress, Lungs Clear, Normal Breath Sounds, No Accessory Muscle Use Cardiovascular: Regular Rate, Rhythm, No Edema GI/Abdominal Exam: Normal Bowel Sounds, Soft, Non-Tender, No Distention. No: Distended Extremities: Normal Inspection, Normal Range of Motion, Non-Tender, No Pedal Edema Neurological: Alert, Oriented, CN II-XII Intact, Normal Cognition, No Motor/Sensory Deficits Psychiatric: Normal Affect, Normal Mood Skin Exam: Warm, Dry, Intact, Normal Color, No Rash Course - Vital Signs Last Recorded V/S: Last Vital Signs Temp 36.3 C 12/05/20 15:45 Pulse 100 12/05/20 16:58 Resp 12 12/05/20 16:58 BP 155/89 H 12/05/20 16:58 Pulse Ox 98 12/05/20 16:58 - Orders/Labs/Meds Orders: Active Orders 24 hr Category Date Time Status Dextrose 50% in Water Med 12/05/20 16:51 Active 50 ml IVPUSH ASDIRECTED PRN Glucagon,Human Recombinant [GlucaGen] Med 12/05/20 16:51 Active 1 mg IM ASDIRECTED PRN NS + KCl 20mEq/L [Normal Saline with 20 mEq KCl] 1,000 Med 12/05/20 17:00 Active ml IV ASDIRECTED Sodium Chloride 0.9% [Saline Flush] Med 12/05/20 15:34 Active 10 ml FLUSH ASDIRECTED PRN Saline Lock Insert [OM.PC] Routine Oth 12/05/20 15:34 Ordered Medication Orders Dextrose/Water (50% Dextrose In Water 50 Ml Syringe) 50 ml IVPUSH ASDIRECTED PRN PRN Reason: Hypoglycemia Glucagon (Glucagon,Human Recombinant 1 Mg Vial) 1 mg IM ASDIRECTED PRN PRN Reason: Hypoglycemia Potassium Chloride/Sodium Chloride (Normal Saline With 20 Meq Kcl) 1,000 mls @ 1,000 mls/hr IV ASDIRECTED GT Last Admin: 12/05/20 17:35 Dose: 1,000 mls/hr Documented by: CEDRIC Sodium Chloride (Sodium Chloride 0.9% 10 Ml Syringe) 10 ml FLUSH ASDIRECTED PRN PRN Reason: Keep Vein Open Last Admin: 12/05/20 16:00 Dose: 10 ml Documented by: CEDRIC Labs: Laboratory Tests 12/05/20 Range/Units 15:58 Sodium 136 L (140-148) mmol/L Potassium 3.9 (3.6-5.2) mmol/L Chloride 97 L (100-108) mmol/L Carbon Dioxide 22 (21-32) mmol/L Anion Gap 20.9 H (5.0-14.0) mmol/L BUN 37 H (7-18) mg/dL Creatinine 2.1 H (0.8-1.3) mg/dL Est Cr Clr Drug Dosing 42.29 mL/min Estimated GFR (MDRD) 33 L (>60) Glucose 266 H (74-106) mg/dL Calcium 9.8 (8.5-10.1) mg/dL Total Bilirubin 0.7 (0.2-1.0) mg/dL AST 14 L (15-37) U/L ALT 17 (12-78) U/L Alkaline Phosphatase 102 (46-116) U/L Total Protein 8.7 H (6.4-8.2) g/dL Albumin 4.4 (3.4-5.0) g/dL Globulin 4.3 H (2.3-3.5) g/dL Albumin/Globulin Ratio 1.0 L (1.2-2.2) Meds: Medications Generic Name Dose Route Start Last Admin Trade Name Freq PRN Reason Stop Dose Admin Dextrose/Water 50 ml 12/05/20 16:51 50% Dextrose In Water 50 Ml Syringe IVPUSH ASDIRECTED PRN Hypoglycemia Glucagon 1 mg 12/05/20 16:51 Glucagon,Human Recombinant 1 Mg Vial IM ASDIRECTED PRN Hypoglycemia Potassium Chloride/Sodium Chloride 1,000 mls @ 1,000 mls/hr 12/05/20 17:00 12/05/20 17:35 Normal Saline With 20 Meq Kcl IV 1,000 mls/hr ASDIRECTED GT Administration Sodium Chloride 10 ml 12/05/20 15:34 12/05/20 16:00 Sodium Chloride 0.9% 10 Ml Syringe FLUSH 10 ml ASDIRECTED PRN Administration Keep Vein Open Discontinued Medications Generic Name Dose Route Start Last Admin Trade Name Freq PRN Reason Stop Dose Admin Lactated Ringer's 1,000 mls @ 1,000 mls/hr 12/05/20 16:19 12/05/20 16:24 Ringers, Lactated IV 12/05/20 17:18 1,000 mls/hr BOLUS ONE Administration Insulin Human Regular 10 unit 12/05/20 16:51 12/05/20 16:57 Insulin Regular, Human 100 Units/Ml 3 Ml Vial SUBCUT 12/05/20 16:52 10 units ONETIME ONE Administration Lorazepam 1 mg 12/05/20 15:42 12/05/20 15:59 Lorazepam 2 Mg/Ml Sdv IVPUSH 12/05/20 15:43 1 mg ONETIME ONE Administration Metoclopramide HCl 10 mg 12/05/20 15:34 12/05/20 16:00 Metoclopramide 10 Mg/2 Ml Sdv IVPUSH 12/05/20 15:35 10 mg ONETIME ONE Administration Departure - Departure Time of Disposition: 18:40 Disposition: Home, Self-Care 01 Condition: Fair Clinical Impression: Diabetic gastroparesis, Mild dehydration, Elevated blood sugar - Discharge Information *PRESCRIPTION DRUG MONITORING PROGRAM REVIEWED*: Not Applicable *COPY OF PRESCRIPTION DRUG MONITORING REPORT IN PATIENT [place]: Not Applicable Instructions: Gastroparesis Referrals: Dora Powell DO [Primary Care Provider] - Forms: ED Department Discharge Additional Instructions: Use the Zofran as needed for nausea control and/or the lorazepam. Continue other meds as before. See your provider this week for recheck. Sepsis Event Note (ED) - Focused Exam Vital Signs: Vital Signs Temp Pulse Resp BP Pulse Ox 12/05/20 16:58 100 12 155/89 H 98 12/05/20 16:04 102 H 134/76 100 12/05/20 15:45 36.3 C 114 H 16 204/112 H 100 12/05/20 15:31 36.3 C 114 H 16 204/112 H 100 - My Orders Last 24 Hours: My Active Orders 12/05/20 15:34 Sodium Chloride 0.9% [Saline Flush] 10 ml FLUSH ASDIRECTED PRN Saline Lock Insert [OM.PC] Routine 12/05/20 16:51 Dextrose 50% in Water 50 ml IVPUSH ASDIRECTED PRN Glucagon,Human Recombinant [GlucaGen] 1 mg IM ASDIRECTED PRN 12/05/20 17:00 NS + KCl 20mEq/L [Normal Saline with 20 mEq KCl] 1,000 ml IV ASDIRECTED - Assessment/Plan Last 24 Hours: My Active Orders 12/05/20 15:34 Sodium Chloride 0.9% [Saline Flush] 10 ml FLUSH ASDIRECTED PRN Saline Lock Insert [OM.PC] Routine 12/05/20 16:51 Dextrose 50% in Water 50 ml IVPUSH ASDIRECTED PRN Glucagon,Human Recombinant [GlucaGen] 1 mg IM ASDIRECTED PRN 12/05/20 17:00 NS + KCl 20mEq/L [Normal Saline with 20 mEq KCl] 1,000 ml IV ASDIRECTED
[2020-12-05] MEDS ORDERED: Lactated Ringers 1,000 ML IV ONE (16:19)
[2020-12-05] MEDS ORDERED: Glucagon,Human Recombinant 1 MG Vial IM PRN (16:51)
[2020-12-05] MEDS ORDERED: 50% Dextrose in Water 50 ML Syringe IVPUSH PRN (16:51)
[2020-12-05] MEDS ORDERED: Insulin Regular, Human 100 Units/ML 3 ML Vial SUBCUT ONE (16:51)
[2020-12-05 16:59] VITALS: PULSE 100
[2020-12-05] MEDS ORDERED: NS + KCl 20mEq/L 1,000 ML IV SCH (17:00)
[2020-12-05 17:04] VITALS: BP 155/89
== END 2020-12-05 18:23 | disposition home or self-care (01) ==
LOC: JP.ED 15:08
DX: E10.43 Type 1 diabetes mellitus with diabetic autonomic (poly)neuropathy (principal); K31.84 Gastroparesis; E10.65 Type 1 diabetes mellitus with hyperglycemia; E86.0 Dehydration; E10.21 Type 1 diabetes mellitus with diabetic nephropathy; I10 Essential (primary) hypertension; E78.00 Pure hypercholesterolemia, unspecified; Z79.82 Long term (current) use of aspirin; Z88.8 Allergy status to other drugs, medicaments and biological substances; Z79.899 Other long term (current) drug therapy
CPT/HCPCS: 36415; 80053; 96374; 96375; 99284; J1815; J2060; J2765; J3480; J7120

== ENCOUNTER 2021-02-13 14:58 | Emergency (ER) | payer MEDICAID ==
[2021-02-13] MEDS ORDERED: LORazepam 2 MG/ML SDV IVPUSH ONE (15:39)
[2021-02-13] MEDS ORDERED: Ondansetron 4 MG/2 ML SDV IVPUSH ONE (15:39)
--- NOTE | 2021-02-13 15:40 | EDM.PDOC ---
ED HPI GENERAL MEDICAL PROBLEM - General Chief Complaint: Gastrointestinal Problem Stated Complaint: STOMACH PAIN, VOMITING, NAUSEA Time Seen by Provider: 02/13/21 15:25 Source of Information: Reports: Patient History Limitations: Reports: No Limitations - History of Present Illness INITIAL COMMENTS - FREE TEXT/NARRATIVE: 51-year-old male with chronic diabetes, tends to get flareup of gastroparesis with persistent nausea and vomiting for several days and he has a current episode that is about 48 hours old. It started when he got into some greasy food 2 days ago, he tried to work yesterday but was sent home. He is not struggling with incredibly high glucometers, he is not struggling with fever or shortness of breath. He is vaccinated for Covid. No diarrhea. No hematemesis. He tends to respond very well to fluids, Zofran and Ativan. Onset: Gradual (Started gradually over the course of the last 48 hours) Location: Reports: Abdomen (Upper abdominal cramping and pain) Associated Symptoms: Reports: Diaphoresis, Loss of Appetite, Malaise, Nausea/Vomiting. Denies: Confusion, Chest Pain, Fever/Chills, Headaches, Shortness of Breath Bilateral Upper Abdomen Pain Score (Numeric/FACES): 8 - Related Data Allergies Allergy/AdvReac Type Severity Reaction Status Date / Time indomethacin Allergy Intermediate Confusion Verified 12/05/20 15:42 metformin Allergy Unknown Other Verified 12/05/20 15:42 Home Meds: Home Meds Aspirin [Lo-Dose Aspirin EC] 81 mg PO DAILY 08/18/15 [History] Multivitamin [Men's Multi-Vitamin] 1 mg PO DAILY 08/18/15 [History] Simvastatin [Zocor] 20 mg PO BEDTIME 05/03/16 [History] Ondansetron [Zofran ODT] 4 mg SL Q4H PRN #12 tab.dis 02/12/17 [Rx] Acetaminophen [Tylenol] 650 mg PO Q4H PRN tablet 03/14/17 [Rx] Magnesium Oxide 400 mg PO DAILY #100 tablet 03/14/17 [Rx] Pantoprazole [ProTONIX] 40 mg PO BID #30 tab.cr 04/08/17 [Rx] Pregabalin [Lyrica] 1 tab PO TID PRN 06/17/17 [History] Past Medical History HEENT History: Reports: Impaired Vision Cardiovascular History: Reports: High Cholesterol, Hypertension Gastrointestinal History: Reports: Chronic Diarrhea Genitourinary History: Reports: Diabetic Nephropathy Musculoskeletal History: Reports: RA Other Musculoskeletal History: . 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 Dermatologic History: Reports: Other (See Below) Other Dermatologic History: diabetic ulcer right foot - Infectious Disease History Infectious Disease History: Reports: Chicken Pox, MRSA - Past Surgical History Head Surgeries/Procedures: Reports: None HEENT Surgical History: Reports: None, Cataract Surgery Cardiovascular Surgical History: Reports: None GI Surgical History: Reports: Colonoscopy, EGD Male Surgical History: Reports: None Endocrine Surgical History: Reports: None Neurological Surgical History: Reports: None Musculoskeletal Surgical History: Reports: Amputation, Shoulder Surgery, Other (See Below) Other Musculoskeletal Surgeries/Procedures:: 4th, 5th toes of right foot Dermatological Surgical History: Reports: None Social & Family History - Family History Family Medical History: No Pertinent Family History Cardiac: Reports: Cardiomyopathy Other Cardiac Family History: Father Endocrine/Metabolic: Reports: Diabetes, type II Other Endocrine/Metabolic Family History: Grandma - Caffeine Use Caffeine Use: Reports: Coffee Other Caffeine Use: 2 cups daily - Living Situation & Occupation Living situation: Reports: , Alone Occupation: Employed ED ROS GENERAL - Review of Systems Review Of Systems: See Below Constitutional: Reports: Malaise. Denies: Fever, Chills HEENT: Reports: No Symptoms Respiratory: Denies: Shortness of Breath Cardiovascular: Denies: Chest Pain GI/Abdominal: Reports: Abdominal Pain, Decreased Appetite, Nausea, Vomiting. Denies: Constipation, Diarrhea, Hematochezia : Reports: No Symptoms Musculoskeletal: Reports: No Symptoms Skin: Reports: No Symptoms Neurological: Reports: Weakness. Denies: Headache Psychiatric: Reports: No Symptoms ED EXAM, GI/ABD - Physical Exam Exam: See Below Exam Limited By: No Limitations General Appearance: Alert, Anxious, Moderate Distress Eyes: Bilateral: Normal Appearance (No jaundice) Head: Atraumatic Neck: Supple Respiratory/Chest: Lungs Clear Cardiovascular: Regular Rate, Rhythm. No: Tachycardia GI/Abdominal Exam: Normal Bowel Sounds, Soft, Tender (Does react with tenderness to palpation across the upper abdomen, there is no distention) Extremities: Normal Inspection. No: Pedal Edema Neurological: Alert, Oriented, No Motor/Sensory Deficits Psychiatric: Anxious Skin Exam: Warm, Dry Course - Vital Signs Last Recorded V/S: Last Vital Signs Temp 97.5 F 02/13/21 17:57 Pulse 91 02/13/21 15:56 Resp 20 02/13/21 15:11 BP 117/76 02/13/21 15:56 Pulse Ox 98 02/13/21 15:11 - Orders/Labs/Meds Labs: Laboratory Tests 02/13/21 02/13/21 Range/Units 15:53 15:53 WBC 13.4 H (4.5-11.0) K/uL RBC 5.50 (4.30-5.90) M/uL Hgb 16.0 H (12.0-15.0) g/dL Hct 47.1 (40.0-54.0) % MCV 86 (80-98) fL MCH 29 (27-31) pg MCHC 34 (32-36) % Plt Count 258 (150-400) K/uL Neut % (Auto) 89.8 H (36-66) % Lymph % (Auto) 5.6 L (24-44) % [place] % (Auto) 4.5 (2-6) % Eos % (Auto) 0.0 L (2-4) % Baso % (Auto) 0.1 (0-1) % Sodium 132 L (140-148) mmol/L Potassium 4.0 (3.6-5.2) mmol/L Chloride 96 L (100-108) mmol/L Carbon Dioxide 25 (21-32) mmol/L Anion Gap 15.0 H (5.0-14.0) mmol/L BUN 30 H (7-18) mg/dL Creatinine 1.7 H (0.8-1.3) mg/dL Est Cr Clr Drug Dosing 50.83 mL/min Estimated GFR (MDRD) 43 L (>60) Glucose 245 H (74-106) mg/dL Calcium 9.2 (8.5-10.1) mg/dL Total Bilirubin 0.8 (0.2-1.0) mg/dL AST 16 (15-37) U/L ALT 21 (12-78) U/L Alkaline Phosphatase 90 (46-116) U/L Total Protein 7.4 (6.4-8.2) g/dL Albumin 4.0 (3.4-5.0) g/dL Globulin 3.4 (2.3-3.5) g/dL Albumin/Globulin Ratio 1.2 (1.2-2.2) Lipase 79 (73-393) U/L Meds: Medications Discontinued Medications Generic Name Dose Route Start Last Admin Trade Name Freq PRN Reason Stop Dose Admin Al Hydroxide/Mg Hydroxide 30 ml 02/13/21 17:47 02/13/21 17:53 Aluminum Hydroxide/Magnesium Hydroxide/Simethicone Susp 30 Ml Cup PO 02/13/21 17:48 30 ml ONETIME ONE Administration Sodium Chloride 1,000 mls @ 1,000 mls/hr 02/13/21 15:45 02/13/21 15:51 Normal Saline IV 1,000 mls/hr ASDIRECTED GT Administration Sodium Chloride 1,000 mls @ 1,000 mls/hr 02/13/21 17:15 02/13/21 16:30 Normal Saline IV 1,000 mls/hr ASDIRECTED GT Administration Insulin Human Regular 6 unit 02/13/21 16:30 02/13/21 16:48 Insulin Regular, Human 100 Units/Ml 3 Ml Vial IVPUSH 02/13/21 16:31 0.06 ml ONETIME ONE Administration Lorazepam 1 mg 02/13/21 15:39 02/13/21 16:04 Lorazepam 2 Mg/Ml Sdv IVPUSH 02/13/21 15:40 1 mg ONETIME ONE Administration Lorazepam 1 mg 02/13/21 18:06 02/13/21 18:12 Lorazepam 2 Mg/Ml Sdv IM 02/13/21 18:07 1 mg ONETIME ONE Administration Ondansetron HCl 4 mg 02/13/21 15:39 02/13/21 16:07 Ondansetron 4 Mg/2 Ml Sdv IVPUSH 02/13/21 15:40 4 mg ONETIME ONE Administration Pantoprazole Sodium 40 mg 02/13/21 17:46 02/13/21 17:53 Pantoprazole 40 Mg Vial IVPUSH 02/13/21 17:47 40 mg ONETIME ONE Administration - Re-Assessments/Exams Free Text/Narrative Re-Assessment/Exam: 02/13/21 15:53 An IV was started and the patient will be given 1 L normal saline along with 1 mg of Ativan and 4 mg of IV Zofran. CBC, CMP and lipase were obtained. 02/13/21 17:04 Glucose was 245 so he was given 6 units of IV insulin. Symptoms improved after the medication but he still had not passed any urine, has second bag of normal saline was hung. 02/13/21 17:48 Patient did develop some heartburn just prior to discharge, he was given 30 cc of liquid Maalox and 40 mg of IV Protonix. He will be discharged with oral Ativan and Zofran to use on an as needed basis. Departure - Departure Time of Disposition: 18:46 Disposition: Home, Self-Care 01 Clinical Impression: Gastroparesis Nausea & vomiting Qualifiers: Vomiting type: unspecified Qualified Code(s): R11.2 - Nausea with vomiting, unspecified - Discharge Information Instructions: Nausea and Vomiting, Adult Referrals: Dora Powell DO [Primary Care Provider] - Forms: ED Department Discharge Care Plan Goals: Just liquids tonight, maintain your glucose control over the next several days and increase diet and activity as tolerated. Use Zofran and Ativan if needed to control symptoms, and return if worsening or concerns. Sepsis Event Note (ED) - Evaluation Sepsis Screening Result: No Definite Risk
[2021-02-13] MEDS ORDERED: Sodium Chloride 0.9% 1,000 ML IV SCH ×2 (15:45→17:15)
[2021-02-13 15:56] VITALS: BP 117/76; PULSE 91
[2021-02-13] MEDS ORDERED: Insulin Regular, Human 100 Units/ML 3 ML Vial IVPUSH ONE (16:30)
[2021-02-13] MEDS ORDERED: Pantoprazole 40 MG Vial IVPUSH ONE (17:46)
[2021-02-13] MEDS ORDERED: Aluminum Hydroxide/Magnesium Hydroxide/Simethicone Susp 30 ML Cup PO ONE (17:47)
[2021-02-13] MEDS ORDERED: LORazepam 2 MG/ML SDV IM ONE (18:06)
== END 2021-02-13 18:35 | disposition home or self-care (01) ==
LOC: JP.ED 14:58
DX: E10.43 Type 1 diabetes mellitus with diabetic autonomic (poly)neuropathy (principal); E10.42 Type 1 diabetes mellitus with diabetic polyneuropathy; K31.84 Gastroparesis; R11.2 Nausea with vomiting, unspecified; E78.00 Pure hypercholesterolemia, unspecified; I10 Essential (primary) hypertension; Z88.1 Allergy status to other antibiotic agents; Z88.8 Allergy status to other drugs, medicaments and biological substances
CPT/HCPCS: 36415; 80053; 83690; 85025; 96372; 96374; 96375; 99284; A9270; C9113; J2060; J2405; J7030; J1815-GY

== ENCOUNTER 2021-04-23 12:05 | Emergency (ER) | payer MEDICAID ==
[2021-04-23] MEDS ORDERED: Lactated Ringers 1,000 ML IV ONE ×3 (12:57→15:44)
[2021-04-23] MEDS ORDERED: LORazepam 2 MG/ML SDV IVPUSH ONE (12:57)
[2021-04-23 13:34] LABS: CORONAVIRUS COVID-19 NAA NEGATIVE (NEGATIVE)
[2021-04-23 16:42] VITALS: BP 157/85; PULSE 86
[2021-04-23] MEDS ORDERED: Ondansetron 4 MG/2 ML SDV IVPUSH ONE (16:51)
== END 2021-04-23 17:47 | disposition home or self-care (01) ==
LOC: JP.ED 12:05
DX: K52.9 Noninfective gastroenteritis and colitis, unspecified (principal); E78.00 Pure hypercholesterolemia, unspecified; I10 Essential (primary) hypertension; E11.21 Type 2 diabetes mellitus with diabetic nephropathy; E11.42 Type 2 diabetes mellitus with diabetic polyneuropathy; Z88.8 Allergy status to other drugs, medicaments and biological substances; Z79.82 Long term (current) use of aspirin; Z79.899 Other long term (current) drug therapy; Z87.891 Personal history of nicotine dependence; Z20.822 Contact with and (suspected) exposure to COVID-19
CPT/HCPCS: 0241U; 36415; 80048; 83605; 85025; 96374; 96375; 99284; J2060; J2405; J7120; 99282

== ENCOUNTER 2021-05-27 10:08 | Day surgery (SDC) | payer MEDICAID ==
[2021-05-27] MEDS ORDERED: Sodium Chloride 0.9% 1,000 ML IV SCH (10:30)
[2021-05-27 11:12] LABS: CORONAVIRUS COVID-19 NAA NEGATIVE (NEGATIVE)
[2021-05-27] MEDS ORDERED: Propofol 200 MG/20 ML SDV ONE (11:35)
[2021-05-27] MEDS ORDERED: Midazolam 1 MG/ML 2 ML SDV ONE (11:35)
[2021-05-27] MEDS ORDERED: fentaNYL 100 MCG/2 ML SDV ONE (11:35)
[2021-05-27 14:50] VITALS: BP 136/79; PULSE 67
== END 2021-05-27 14:51 | disposition home or self-care (01) ==
LOC: JP.SDS 10:08
PROVIDERS: ATTEND Surgery
DX: K20.90 Esophagitis, unspecified without bleeding (principal); I10 Essential (primary) hypertension; E11.9 Type 2 diabetes mellitus without complications
CPT/HCPCS: 0241U; J2250; J2704; J3010; J7030

== ENCOUNTER 2021-09-26 08:44 | Emergency (ER) | payer MEDICAID ==
[2021-09-26] MEDS ORDERED: LORazepam 2 MG/ML SDV IVPUSH ONE (09:22)
[2021-09-26] MEDS ORDERED: Ondansetron 4 MG/2 ML SDV IVPUSH ONE ×2 (09:22→10:59)
[2021-09-26] MEDS: Sodium Chloride 0.9% 1,000 ML IV SCH ×2 (09:40→11:06)
[2021-09-26] MEDS ORDERED: HYDROmorphone 0.5 MG/0.5 ML Syringe IVPUSH ONE (10:59)
[2021-09-26] MEDS ORDERED: Sodium Chloride 0.9% 1,000 ML IV SCH (11:00)
[2021-09-26 11:59] VITALS: BP 184/92; PULSE 86
== END 2021-09-26 12:35 | disposition home or self-care (01) ==
LOC: JP.ED 08:44
DX: E10.43 Type 1 diabetes mellitus with diabetic autonomic (poly)neuropathy (principal); K31.84 Gastroparesis; R11.2 Nausea with vomiting, unspecified; E10.21 Type 1 diabetes mellitus with diabetic nephropathy; E78.00 Pure hypercholesterolemia, unspecified; I10 Essential (primary) hypertension; K21.9 Gastro-esophageal reflux disease without esophagitis; Z88.8 Allergy status to other drugs, medicaments and biological substances; Z79.82 Long term (current) use of aspirin; Z79.4 Long term (current) use of insulin; Z79.899 Other long term (current) drug therapy
CPT/HCPCS: 36415; 80048; 83690; 85025; 96361; 96374; 96375; 96376; 99284; J1170; J2060; J2405; J7030; 99282

== ENCOUNTER 2023-10-07 13:54 | Emergency (ER) | payer MEDICAID, OTHER ==
[2023-10-07] MEDS: LORazepam 2 MG/ML SDV IVPUSH ONE (14:14)
[2023-10-07 14:36] VITALS: BP 103/58
[2023-10-07 14:39] LABS: BASOPHILS PERCENT AUTO 0.1 % (0.1-1.3); EOSINOPHILS PERCENT AUTO 0.1 % (0.0-5.4); HEMATOCRIT 35.3 % (38.4-49.7); HEMOGLOBIN 12.3 g/dL (12.9-16.9); IMMATURE GRAN ABSOLUTE AUTO 0.06 K/uL (0.00-0.23); IMMATURE GRAN PERCENT AUTO 0.4 % (0.0-0.7); LYMPHOCYTES ABSOLUTE AUTO 1.95 K/uL (0.8-3.3); LYMPHOCYTES PERCENT AUTO 14.5 % (11.4-47.7); MEAN CORPUSCULAR HEMOGLOBIN 31.3 pg (31.6-35.5); MEAN CORPUSCULAR HGB CONC 34.8 g/dL (31.6-35.5); MEAN CORPUSCULAR VOLUME 89.8 fL (81.4-99.0); MONOCYTES PERCENT AUTO 7.4 % (3.3-12.6); NEUTROPHILS PERCENT AUTO 77.5 % (40.0-78.1); PLATELET COUNT,PLT 192 K/uL (130-375); RED BLOOD CELL COUNT 3.93 M/uL (4.14-5.76); WHITE BLOOD CELL COUNT,WBC 13.5 K/uL (3.2-11.0)
[2023-10-07 14:41] LABS: BASOPHILS ABSOLUTE AUTO 0.02 K/uL (0.00-0.10); EOSINOPHILS ABSOLUTE AUTO 0.02 K/uL (0.00-0.40)
[2023-10-07 14:44] VITALS: PULSE 63
[2023-10-07 15:03] LABS: CALCIUM 8.8 mg/dL (8.5-10.1); CREATININE 2.5 mg/dL (0.8-1.3); EST CRCL DRUG DOSING (CG) 34.33 mL/min; POTASSIUM,K 4.6 mmol/L (3.6-5.2); TROPONIN I HIGH SENSITIVITY 26.7 pg/mL (<=60.3)
[2023-10-07 15:05] LABS: ANION GAP 17.6 mmol/L (5.0-14.0)
== END 2023-10-07 15:54 | disposition home or self-care (01) ==
LOC: JP.ED 13:54
DX: S06.0XAA Concussion with loss of consciousness status unknown, initial encounter (principal); E86.0 Dehydration; E78.00 Pure hypercholesterolemia, unspecified; E10.40 Type 1 diabetes mellitus with diabetic neuropathy, unspecified; F17.210 Nicotine dependence, cigarettes, uncomplicated; Z90.49 Acquired absence of other specified parts of digestive tract; Z79.4 Long term (current) use of insulin; Z79.899 Other long term (current) drug therapy; Z88.8 Allergy status to other drugs, medicaments and biological substances; Z88.6 Allergy status to analgesic agent; W19.XXXA Unspecified fall, initial encounter; Y92.481 Parking lot as the place of occurrence of the external cause; Y99.0 Civilian activity done for income or pay
CPT/HCPCS: 36415; 70450; 72125; 76377; 80048; 84484; 85025; 93005; 93010; 96374; 99284; J2060

== ENCOUNTER 2024-12-29 11:19 | Emergency (ER) | payer OTHER ==
[2024-12-29 12:51] LABS: BASOPHILS ABSOLUTE AUTO 0.03 K/uL (0.00-0.10); BASOPHILS PERCENT AUTO 0.1 % (0.1-1.3); EOSINOPHILS PERCENT AUTO 0.0 % (0.0-5.4); IMMATURE GRAN ABSOLUTE AUTO 0.14 K/uL (0.00-0.23); IMMATURE GRAN PERCENT AUTO 0.7 % (0.0-0.7); LYMPHOCYTES ABSOLUTE AUTO 0.96 K/uL (0.8-3.3); LYMPHOCYTES PERCENT AUTO 4.5 % (11.4-47.7); MONOCYTES ABSOLUTE AUTO 1.75 K/uL (0.20-0.90); MONOCYTES PERCENT AUTO 8.2 % (3.3-12.6); NEUTROPHILS ABSOLUTE AUTO 18.46 K/uL (1.0-7.6); NEUTROPHILS PERCENT AUTO 86.5 % (40.0-78.1); PLATELET COUNT,PLT 246 K/uL (130-375); RED BLOOD CELL COUNT 3.99 M/uL (4.14-5.76); WHITE BLOOD CELL COUNT,WBC 21.4 K/uL (3.2-11.0)
[2024-12-29 13:04] LABS: ALANINE AMINOTRANSFERASE,ALT 18 U/L (12-78); ASPARTATE AMNIOTRANSFERASE,AST 14 U/L (15-37); BILIRUBIN TOTAL 0.8 mg/dL (0.2-1.0); BLOOD UREA NITROGEN,BUN 22 mg/dL (7-18); CARBON DIOXIDE,CO2 26 mmol/L (21-32); CHLORIDE,CL 96 mmol/L (100-108); CREATININE 1.6 mg/dL (0.8-1.3); ESTIMATED GFR 51 mL/min (>60); GLUCOSE RANDOM 203 mg/dL (74-106); POTASSIUM,K 4.2 mmol/L (3.6-5.2); PROTEIN TOTAL,TP 7.2 g/dL (6.4-8.2); SODIUM,NA 131 mmol/L (140-148)
[2024-12-29 13:08] LABS: A/G RATIO 0.9 (1.2-2.2); EOSINOPHILS ABSOLUTE AUTO 0.01 K/uL (0.00-0.40)
[2024-12-29 13:10] LABS: LACTIC ACID 1.3 mmol/L (0.4-2.0)
[2024-12-29 15:12] VITALS: BP 122/63; PULSE 68
== END 2024-12-29 15:41 ==
LOC: JP.ED 11:19
DX: E10.621 Type 1 diabetes mellitus with foot ulcer (principal); E78.00 Pure hypercholesterolemia, unspecified; E10.40 Type 1 diabetes mellitus with diabetic neuropathy, unspecified; F17.210 Nicotine dependence, cigarettes, uncomplicated; Z88.8 Allergy status to other drugs, medicaments and biological substances; Z79.899 Other long term (current) drug therapy; Z79.4 Long term (current) use of insulin
CPT/HCPCS: 36415; 73630; 80053; 83605; 84145; 85025; 86140; 87040; 87070; 87205; 96361; 96365; 99284; J0690; J7030